=== PATIENT | male | born 1965 | race Caucasian/White ===

== ENCOUNTER 2020-06-19 19:31 | Inpatient (IN) | payer OTHER, SELFPAY ==
--- NOTE | ~2020-06-19 | CT_ITS ---
EXAMINATION: CT ABDOMEN AND PELVIS WITH CONTRAST CLINICAL INFORMATION: Severe sepsis. Paraplegia. Hematuria. COMPARISON: None TECHNIQUE: Multidetector volumetric images were obtained from the superior aspect of the liver through the pubic symphysis following administration 85 mL of Omnipaque 350 intravenous contrast. Sagittal and coronal reformatted images were obtained on the technologist's workstation. Oral contrast: No This CT examination was performed using dose optimization techniques as appropriate, variously including the following: *Automated exposure control *Adjustment of mA and/or kV according to patient size (this includes techniques or standardized protocols for targeted exams where dose is matched to indication/reason for exam; i.e. extremities or head) *Use of iterative reconstruction technique DLP: 1823 mGy-cm FINDINGS: LUNG BASES: Peripheral left basilar opacity likely represents atelectasis versus pleural thickening. LIVER, GALLBLADDER, AND BILIARY TREE: The liver is normal in size, shape, and attenuation. No focal hepatic lesion or biliary ductal dilatation is present. The gallbladder is unremarkable with no evidence of radiopaque gallstones, gallbladder wall thickening, or obvious pericholecystic inflammatory changes. PANCREAS: Unremarkable. SPLEEN: The spleen is enlarged measuring 16 cm AP dimension. No focal splenic lesion. ADRENAL GLANDS: Unremarkable. KIDNEYS AND URETERS: The kidneys are normal in size, shape, and attenuation. Left upper pole cortical simple cyst measuring 0.9 cm. No follow-up imaging recommended. There is a right lower pole 0.5 cm calculus which is 9.5 cm from the posterior axillary line. There is mild bilateral hydroureteronephrosis. No left ureteral calculi. There is a distal right ureteral calculus measuring 0.3 cm, approximately 1 cm from the ureterovesicular junction. BLADDER: The bladder is significantly thick-walled with irregular appearance diffusely. There is surrounding fluid and inflammation. The fluid extends along the paracolic gutters, measuring simple fluid attenuation. GASTROINTESTINAL TRACT: The stomach is unremarkable. Normal caliber small bowel. No obstruction. No definite colonic wall thickening. No free air. ABDOMINAL WALL: No significant hernia is appreciated. LYMPH NODES: Normal. VASCULAR: Normal caliber aorta with mild atherosclerotic calcification. PELVIC VISCERA: Enlarged prostate measuring 5.2 cm transverse. OSSEOUS STRUCTURES: No acute or suspicious osseous abnormality. Degenerative changes are seen throughout the spine. Moderate degenerative changes in both hips. CT/CT abdomen pelvis w con IMPRESSION: Significant abnormality of the bladder. Diffuse irregular wall thickening with prominent surrounding inflammatory changes and fluid. This is concerning for infection. Mild bilateral hydroureteronephrosis is likely associated with the bladder pathology. There is a 0.3 cm distal right ureteral calculus present. There is also a nonobstructing right lower pole 0.5 cm calculus. Mild splenomegaly.
--- NOTE | ~2020-06-19 | XR_ITS ---
EXAMINATION: XR CHEST CLINICAL INFORMATION: Sepsis. COMPARISON: None TECHNIQUE: Frontal portable view of the chest was obtained. 10:37 PM FINDINGS: No significant abnormality is noted involving the heart, lungs, mediastinum, bony thorax or soft tissues. Orthopedic plate and screw at lower cervical spine. XR/XR chest 1V IMPRESSION: Unremarkable examination.
[2020-06-19 19:38] VITALS: BP 102/60; BP 145/95; PULSE 104; PULSE 120; RESP 22; TEMP 38.2; O2SAT 100; O2SAT 96; BMI 22.9
--- NOTE | 2020-06-19 19:46 | ED_ITS ---
HPI - General Adult General Chief complaint: General Medical Stated complaint: HEMATURIA,?UTI Time Seen by Provider: 06/19/20 19:46 Source: patient Mode of arrival: EMS Limitations: no limitations History of Present Illness HPI narrative: Patient paraplegic after C7 injury for last 20 years self- catheterize with history of ESBL E coli bacteremia in 2014 was doing fine until yesterday today since noontime been shivering noticed to have temperature of 100.8 degrees on arrival. No nausea no vomiting no cough otherwise patient in baseline health. Has some blood in the urine today. Patient has a nonhealing wound on right lateral aspect of the thigh which per visiting nurse stable not getting worse patient does not feel much below the nipple line. Related Data Home Medications Medication Instructions Recorded Confirmed baclofen 10 mg PO BID 06/19/20 06/19/20 bisacodyl 10 mg PO MOWEFR 06/19/20 06/19/20 docusate sodium [Colace] 100 mg PO BID 06/19/20 06/19/20 multivitamin with minerals 1 tab PO DAILY 06/19/20 06/19/20 sennosides [senna] 17.2 mg PO BID PRN 06/19/20 06/19/20 simvastatin 20 mg PO DAILY 06/19/20 06/19/20 Allergies Allergy/AdvReac Type Severity Reaction Status Date / Time No Known Allergies Allergy Unverified 10/26/19 19:31 [No Known Allergies*] Review of Systems Review of Systems: Constitutional : No Weight loss, + Fever, + Chills ENT/Mouth : No sore throat, No Rhinorrhea Eyes: No Eye Pain, No Swelling Cardiovascular : No Chest Pain, no palpitations Respiratory : No Cough, No Sputum, no shortness of breath Gastrointestinal : no Nausea, No Vomiting, No Diarrhea, No abdominal Pain, no black stools Genitourinary : No Dysuria, No Urinary Frequency Musculoskeletal : No joint pain, No Myalgias, No Joint Swelling Skin : No Skin Lesions, No rash Neuro : No Weakness, No Numbness, No Dizziness, No Headache Psych : No Anxiety/Panic, No Depression Heme/Lymph: No Bruising, No Lymphadenopathy Endocrine : No Polyuria, No Polydipsia All other systems reviewed and are negative PMFSH Past Medical History Medical History C7 spinal cord injury Paralysis Paraplegia Urinary retention Social History Social History Smoking Status: Former smoker Smoked in Last 30 Days: No Advance Directives: No Advance Directives Information Provided: Yes Physical Exam Vital Signs: Vital Signs: Last Vital Signs Temp 100.8 F H 06/19/20 19:38 Pulse 92 06/19/20 22:00 Resp 18 06/19/20 22:00 BP 145/90 H 06/19/20 22:00 Pulse Ox 100 06/19/20 22:00 Body Mass Index 22.9 Appearance: Alert. Oriented X3. No acute distress. Chills++ Eyes: PERRLA, No Nystagmus ENT: Pharynx normal. Oral Mucosa moist Neck: Normal inspection. Neck supple. CVS: Normal heart rate and rhythm. Pulses normal. Respiratory: No respiratory distress. Equal air entry bilateral, no wheezing/rales/rhonchi Abdomen: Soft and nontender. Bowel sounds are present, no mass palpable, no CVA tenderness, blood at the meatus of penis, sherrell hematuria Skin: Skin warm and dry. Normal skin color. Normal skin turgor. Extremities: No lower extremity edema. No calf tenderness Neuro: Oriented X 3. Paraplegic. No sensory deficit.No cerebellar signs , cranial nerves II-XII intact Medical Decision Making MDM Narrative Medical decision making narrative: Patient with history of paraplegia history of ESBL E coli infection the past self-catheterize and use condom catheter in the nighttime came with fever and chills leukocytosis tachycardia meeting the crite genevieve for sepsis. Patient was given IV fluids 30 mL/kilogram body weight along with antibiotic ertapenem and vancomycin although urine is negative for WBC but that is the source of infection likely. Patient has wound at right greater trochanteric area wound does not seem to be very deep . Patient responded to IV fluids vitals improved will admit patient CT scan showed bilateral mild hydronephrosis with small stone on the right ureter with thickening and inflammation of the bladder wall. Lab Data Lab results reviewed: Yes I reviewed the patient's lab results. Result diagrams: 06/19/20 19:56 06/19/20 19:56 Labs: Lab Results 06/19/20 06/19/20 06/19/20 Range/Units 19:56 19:56 19:56 WBC 28.5 H (4.8-10.8) X10*3/uL RBC 5.53 (4.60-5.80) X10*6/uL Hgb 14.3 (14.0-18.0) g/dl Hct 45.7 (42-52) % MCV 82.6 (80-98) fL MCH 25.9 L (27.0-33.0) pg MCHC 31.3 (31.0-36.0) g/dl RDW 15.6 (11.0-16.0) % Plt Count 505 H (160-400) X10*3/uL MPV 8.9 L (9.4-12.4) fL Immature Gran % (Auto) 0.8 H (0.0-0.4) % Neut % (Auto) 88.3 H (45-73) % Lymph % (Auto) 3.9 L (20-40) % [place] % (Auto) 6.0 (2-11) % Eos % (Auto) 0.7 (0-4) % Baso % (Auto) 0.3 (0-2) % Lymph # (Auto) 1.1 L (1.2-4.9) X10*3/uL [place] # (Auto) 1.7 H (0.1-1.2) X10*3/uL Eos # (Auto) 0.2 (0.0-0.4) X10*3/uL Baso # (Auto) 0.1 (0.0-0.2) X10*3/uL Abs Immat Gran (auto) 0.23 H (0.00-0.03) X10*3/uL Absolute Neuts (auto) 25.1 H (2.0-8.3) X10*3/uL Absolute Nucleated RBC 0.000 (0.0-0.012) X10*3/uL Nucleated RBC % (auto) 0.0 (0.0-0.2) /100WBC Smear Tech's Comments VERIFIED PT 13.6 H (10.8-13.0) SEC INR 1.1 (0.9-1.1) Sodium 142 (135-145) mmol/L Potassium 3.9 (3.3-5.1) mmol/L Chloride 106 (96-108) mmol/L Carbon Dioxide 25 (22-29) mmol/L Anion Gap 15 (12-20) BUN 11 (9-16) mg/dL Creatinine 0.81 (0.5-1.4) mg/dL Estim Creat Clear Calc 105.7 Estimated GFR > 60 Random Glucose 220 H (60-115) mg/dL Lactic Acid (0.5-2.0) mmol/L Lactic Acid Fup @ 2Hr (0.5-2.0) mmol/L Lactic Acid Fup @ 4Hr (0.5-2.0) mmol/L Calcium 8.8 (8.4-10.2) mg/dL Total Bilirubin 0.3 (0.0-1.0) mg/dL Direct Bilirubin 0.2 (0.0-0.5) mg/dL AST 12 (5-37) U/L ALT 11 (0-40) U/L Alkaline Phosphatase 73 (39-117) U/L Total Protein 8.1 H (6.5-8.0) g/dL Albumin 3.7 (3.5-5.0) g/dL Urine Color Urine Appearance Urine pH (5.0-8.0) Ur Specific [place] (1.005-1.025) Urine Protein (NEG-TRACE) MG/DL Urine Glucose (UA) (NEG) MG/DL Urine Ketones (NEG) MG/DL Urine Blood (NEG) Urine Nitrite (NEG) Ur Leukocyte Esterase (NEG) Urine RBC (0) /HPF Urine WBC (0-4) /HPF Ur Squamous Epith Cells /LPF Urine Bacteria /LPF COVID-19 (BESSY) (Negative) COVID-19 Clin Com 06/19/20 06/19/20 06/19/20 Range/Units 19:56 21:48 22:31 WBC (4.8-10.8) X10*3/uL RBC (4.60-5.80) X10*6/uL Hgb (14.0-18.0) g/dl Hct (42-52) % MCV (80-98) fL MCH (27.0-33.0) pg MCHC (31.0-36.0) g/dl RDW (11.0-16.0) % Plt Count (160-400) X10*3/uL MPV (9.4-12.4) fL Immature Gran % (Auto) (0.0-0.4) % Neut % (Auto) (45-73) % Lymph % (Auto) (20-40) % [place] % (Auto) (2-11) % Eos % (Auto) (0-4) % Baso % (Auto) (0-2) % Lymph # (Auto) (1.2-4.9) X10*3/uL [place] # (Auto) (0.1-1.2) X10*3/uL Eos # (Auto) (0.0-0.4) X10*3/uL Baso # (Auto) (0.0-0.2) X10*3/uL Abs Immat Gran (auto) (0.00-0.03) X10*3/uL Absolute Neuts (auto) (2.0-8.3) X10*3/uL Absolute Nucleated RBC (0.0-0.012) X10*3/uL Nucleated RBC % (auto) (0.0-0.2) /100WBC Smear Tech's Comments PT (10.8-13.0) SEC INR (0.9-1.1) Sodium (135-145) mmol/L Potassium (3.3-5.1) mmol/L Chloride (96-108) mmol/L Carbon Dioxide (22-29) mmol/L Anion Gap (12-20) BUN (9-16) mg/dL Creatinine (0.5-1.4) mg/dL Estim Creat Clear Calc Estimated GFR Random Glucose (60-115) mg/dL Lactic Acid 3.0 H* (0.5-2.0) mmol/L Lactic Acid Fup @ 2Hr 2.3 H* (0.5-2.0) mmol/L Lactic Acid Fup @ 4Hr (0.5-2.0) mmol/L Calcium (8.4-10.2) mg/dL Total Bilirubin (0.0-1.0) mg/dL Direct Bilirubin (0.0-0.5) mg/dL AST (5-37) U/L ALT (0-40) U/L Alkaline Phosphatase (39-117) U/L Total Protein (6.5-8.0) g/dL Albumin (3.5-5.0) g/dL Urine Color RED Urine Appearance TURBID Urine pH 7.0 (5.0-8.0) Ur Specific [place] 1.025 (1.005-1.025) Urine Protein 3+ H (NEG-TRACE) MG/DL Urine Glucose (UA) 100 H (NEG) MG/DL Urine Ketones NEG (NEG) MG/DL Urine Blood 3+ H (NEG) Urine Nitrite NEG (NEG) Ur Leukocyte Esterase NEG (NEG) Urine RBC TNTC H (0) /HPF Urine WBC 0 (0-4) /HPF Ur Squamous Epith Cells NONE /LPF Urine Bacteria 1+ /LPF COVID-19 (BESSY) (Negative) COVID-19 Clin Com 06/19/20 06/20/20 Range/Units 22:31 00:57 WBC (4.8-10.8) X10*3/uL RBC (4.60-5.80) X10*6/uL Hgb (14.0-18.0) g/dl Hct (42-52) % MCV (80-98) fL MCH (27.0-33.0) pg MCHC (31.0-36.0) g/dl RDW (11.0-16.0) % Plt Count (160-400) X10*3/uL MPV (9.4-12.4) fL Immature Gran % (Auto) (0.0-0.4) % Neut % (Auto) (45-73) % Lymph % (Auto) (20-40) % [place] % (Auto) (2-11) % Eos % (Auto) (0-4) % Baso % (Auto) (0-2) % Lymph # (Auto) (1.2-4.9) X10*3/uL [place] # (Auto) (0.1-1.2) X10*3/uL Eos # (Auto) (0.0-0.4) X10*3/uL Baso # (Auto) (0.0-0.2) X10*3/uL Abs Immat Gran (auto) (0.00-0.03) X10*3/uL Absolute Neuts (auto) (2.0-8.3) X10*3/uL Absolute Nucleated RBC (0.0-0.012) X10*3/uL Nucleated RBC % (auto) (0.0-0.2) /100WBC Smear Tech's Comments PT (10.8-13.0) SEC INR (0.9-1.1) Sodium (135-145) mmol/L Potassium (3.3-5.1) mmol/L Chloride (96-108) mmol/L Carbon Dioxide (22-29) mmol/L Anion Gap (12-20) BUN (9-16) mg/dL Creatinine (0.5-1.4) mg/dL Estim Creat Clear Calc Estimated GFR Random Glucose (60-115) mg/dL Lactic Acid (0.5-2.0) mmol/L Lactic Acid Fup @ 2Hr (0.5-2.0) mmol/L Lactic Acid Fup @ 4Hr 2.8 H* (0.5-2.0) mmol/L Calcium (8.4-10.2) mg/dL Total Bilirubin (0.0-1.0) mg/dL Direct Bilirubin (0.0-0.5) mg/dL AST (5-37) U/L ALT (0-40) U/L Alkaline Phosphatase (39-117) U/L Total Protein (6.5-8.0) g/dL Albumin (3.5-5.0) g/dL Urine Color Urine Appearance Urine pH (5.0-8.0) Ur Specific [place] (1.005-1.025) Urine Protein (NEG-TRACE) MG/DL Urine Glucose (UA) (NEG) MG/DL Urine Ketones (NEG) MG/DL Urine Blood (NEG) Urine Nitrite (NEG) Ur Leukocyte Esterase (NEG) Urine RBC (0) /HPF Urine WBC (0-4) /HPF Ur Squamous Epith Cells /LPF Urine Bacteria /LPF COVID-19 (BESSY) Negative (Negative) COVID-19 Clin Com See Note Discharge Plan Discharge Clinical Impression: Sepsis Qualifiers: Sepsis type: sepsis due to unspecified organism Sepsis acute organ dysfunction status: without acute organ dysfunction Qualified Code(s): A41.9 - Sepsis, unspecified organism Hematuria Qualifiers: Hematuria type: gross Qualified Code(s): R31.0 - Gross hematuria Patient Disposition: Admitted As Inpatient
[2020-06-19 20:06] LABS: Basophils Absolute Auto 0.1 X10*3/uL (0.0-0.2); Basophils Percent Auto 0.3 % (0-2); Eosinophils Absolute Auto 0.2 X10*3/uL (0.0-0.4); Eosinophils Percent Auto 0.7 % (0-4); Hematocrit 45.7 % (42-52); Hemoglobin 14.3 g/dl (14.0-18.0); Imm Gran Abs Auto 0.23 X10*3/uL (0.00-0.03); Imm Gran Pct Auto 0.8 % (0.0-0.4); Lymphocytes Absolute Auto 1.1 X10*3/uL (1.2-4.9); Lymphocytes Percent Auto 3.9 % (20-40); MANUAL DIFF FLAG SCAN; Mean Corpuscular HGB Conc 31.3 g/dl (31.0-36.0); Mean Corpuscular Hemoglobin 25.9 pg (27.0-33.0); Mean Corpuscular Volume 82.6 fL (80-98); Mean Platelet Volume 8.9 fL (9.4-12.4); Monocytes Absolute Auto 1.7 X10*3/uL (0.1-1.2); Neutrophils Absolute Auto 25.1 X10*3/uL (2.0-8.3); Neutrophils Percent Auto 88.3 % (45-73); Platelet Count 505 X10*3/uL (160-400); Red Blood Count 5.53 X10*6/uL (4.60-5.80); Red Cell Distribution Width 15.6 % (11.0-16.0); SCAN SMEAR FLAG 1; White Blood Count 28.5 X10*3/uL (4.8-10.8)
[2020-06-19 20:15] LABS: INTERNATIONAL NORM RATIO 1.1 (0.9-1.1); Prothrombin Time 13.6 SEC (10.8-13.0)
[2020-06-19] MEDS: Acetaminophen 325 MG TABLET 650 MG PO (20:19)
[2020-06-19] MEDS: 0.9 % Sodium Chloride 2,500 ML 833.33 ML IV (20:20)
[2020-06-19] MEDS: Ertapenem Sodium 1 GM in 0.9 % Sodium Chloride 50 ML IV (20:21)
[2020-06-19 20:29] LABS: Alanine Aminotransferase 11 U/L (0-40); Albumin Level 3.7 g/dL (3.5-5.0); Alkaline Phosphatase 73 U/L (39-117); Anion Gap 15 (12-20); Aspartate Amino Transferase 12 U/L (5-37); Bilirubin Direct 0.2 mg/dL (0.0-0.5); Bilirubin Total 0.3 mg/dL (0.0-1.0); Blood Urea Nitrogen 11 mg/dL (9-16); Calcium 8.8 mg/dL (8.4-10.2); Carbon Dioxide 25 mmol/L (22-29); Chloride 106 mmol/L (96-108); Creatinine Clr Calc Pharmacy 105.7; Estimated Glomerular Filt Rate > 60; Glucose Random 220 mg/dL (60-115); Potassium 3.9 mmol/L (3.3-5.1); Sodium 142 mmol/L (135-145); Total Protein 8.1 g/dL (6.5-8.0)
[2020-06-19 20:32] LABS: SLIDE REVIEW VERIFIED
[2020-06-19 20:55] VITALS: BP 140/68; PULSE 82; RESP 18; O2SAT 100
[2020-06-19 21:12] VITALS: BP 99/55
[2020-06-19 22:00] VITALS: BP 145/90; PULSE 92; RESP 18; O2SAT 100
[2020-06-19 22:02] LABS: Reflex Lactate? Lactic Acid Added
[2020-06-19 22:11] LABS: Glucose Urine UA 100 MG/DL (NEG); Leukocyte Esterase Urine NEG (NEG); Nitrite Urine NEG (NEG); Specific Gravity - Urine 1.025 (1.005-1.025); Urine Blood 3+ (NEG); Urine Ketones NEG (NEG); Urine Protein 3+ MG/DL (NEG-TRACE)
[2020-06-19 22:14] LABS: Appearance Urine TURBID; Color Urine RED
[2020-06-19 22:15] LABS: Bacteria Urine 1+ /LPF; RBC Urine TNTC /HPF (0); WBC Urine 0 /HPF (0-4)
--- NOTE | 2020-06-19 22:36 | PC.NURSE ---
Hx of recent d/c from [facility]. Pt has extensive medical history of utilizing [facility]. pt has wound care at home for chronic right ishial wound, drainage purulent no bone visualized and redressed. left ishial wound and buttock wound about size of quarter appeared to be well healing. unknown when dressings were last changed. sister era [phone] and sandeep [phone]
[2020-06-19] MEDS: vancomycin HCL 1,000 MG in 0.9 % Sodium Chloride 250 ML 270 MG IV (22:52)
[2020-06-19 22:59] LABS: COVID-19 Test Negative (Negative)
[2020-06-19 23:01] LABS: ~Lactic Acid-LAB USE ONLY 2.3 mmol/L (0.5-2.0)
[2020-06-20] VITALS (7 sets, daily range): BP systolic 90–156; BP diastolic 40–76; PULSE 66–95; RESP 16–18; TEMP 36.1–37.2; O2SAT 97–100; BMI 22.9
[2020-06-20] MEDS: iohexoL 350 MG/ML 100 ML INFUS..BTL 85 ML IV (00:10)
[2020-06-20 00:39] LABS: Reflex Lactate? 2 Y
[2020-06-20 01:23] LABS: ~Lactic Acid-LAB USE ONLY 2.8 mmol/L (0.5-2.0)
--- NOTE | 2020-06-20 01:55 | PM.IMHP ---
History of Present Illness Date of Service: 06/20/20 Chief Complaint: Hematuria/ Chills 55-year-old male with a past medical history of C7 injury, paraplegic, mostly bed-bound, has history of bilateral ischial decubitus ulcers; uses condom catheter at night; history of ESBL infection; has been in the [facility] for about 6 months and recently discharged home about a month ago; has VNA services; presented to the hospital with a chief complaint of hematuria/chills and rigors. Most of the history provided by the patient, patient's sister Helena, ER staff. Reportedly this afternoon after 3:00 a.m. patient noted to have increased urinary frequency and subsequently had pinkish urine notified his sister Helena and subsequently brought to the ER for further evaluation. Patient denies any chest pain palpitations. As per the patient's sister Helena-> patient has chronic decubitus ulcers; some discharge on the right decubitus ulcer; follows with [facility]; patient was deemed nonsurgical for his ulcers at the [facility]. ER course: Per ER team patient noted to have significantly leukocytes, blood cultures were sent, urine consistent with UTI-given imipenem; also given vancomycin the patient noted to have Will and right ischial decubitus ulcer. Admitted to the hospital for further management [facility] Medical History (Updated 06/30/20 @ 00:01 by Rodolfo Hollingsworth) C7 spinal cord injury Decubitus ulcer of buttock, stage 2 Paralysis Paraplegia Urinary retention Social History Household Members: None Housing: Apartment Do you presently have visiting nurse or other home services: Yes Smoking Status: Former smoker Substance Use Type: Marijuana service: Yes Current occupational status: retired and disabled Meds Allergies Allergy/AdvReac Type Severity Reaction Status Date / Time No Known Allergies Allergy Unverified 10/26/19 19:31 [No Known Allergies*] Active Medications: Current Medications Generic Name Dose Route Start Last Admin Trade Name Freq PRN Reason Stop Dose Admin Acetaminophen 650 mg 06/20/20 01:49 Acetaminophen 325 Mg Tablet PO Q6H PRN Pain, Mild (Pain Scale 1-3) Baclofen 10 mg 06/20/20 09:00 Baclofen 10 Mg Tablet PO BID [facility] Docusate Sodium 100 mg 06/20/20 09:00 Docusate Sodium 100 Mg Capsule PO BID [facility] Heparin Sodium (Porcine) 5,000 unit 06/20/20 02:00 Heparin Sodium,Porcine 5,000 Unit/Ml Vial SUBCUT Q8H [facility] Ertapenem 1 gm/ Sodium 50 mls @ 100 mls/hr 06/20/20 20:00 Chloride IV 06/20/20 20:29 ONCE ONE Vancomycin HCl 1,000 mg/ 270 mls @ 270 mls/hr 06/20/20 02:00 Sodium Chloride IV Q12H [facility] Sodium Chloride 1,000 mls @ 100 mls/hr 06/20/20 02:00 Ns IVCONT .Q10H [facility] Multivitamins/Minerals 1 tab 06/20/20 09:00 Multivitamin With Minerals Tablet PO DAILY [facility] Non-Formulary Medication 20 mg 06/20/20 09:00 Simvastatin PO DAILY [facility] Pharmacy Consult 1 each 06/19/20 20:23 Consult Rx Perform Med Rec MISCELLANE ONCE PRN Consult order Pharmacy Consult 1 each 06/20/20 01:47 Consult Rx Vancomycin Dosing MISCELLANE DAILY PRN Consult order Senna 17.2 mg 06/20/20 01:49 Sennosides 8.6 Mg Tablet PO BEDTIME PRN Constipation Senna 17.2 mg 06/20/20 01:51 Sennosides 8.6 Mg Tablet PO BID PRN Constipation Sodium Chloride 3 ml 06/20/20 08:00 0.9 % Sodium Chloride Flush 3 Ml [facility] Medications Medication Instructions Recorded Confirmed Last Taken Type baclofen 10 mg PO BID 06/19/20 06/19/20 06/19/20 History bisacodyl 10 mg PO MOWEFR 06/19/20 06/19/20 Unknown History docusate sodium [Colace] 100 mg PO BID 06/19/20 06/19/20 Unknown History multivitamin with minerals 1 tab PO DAILY 06/19/20 06/19/20 Unknown History sennosides [senna] 17.2 mg PO BID PRN 06/19/20 06/19/20 Unknown History simvastatin 20 mg PO DAILY 06/19/20 06/19/20 06/19/20 History Physical Exam Vital Signs and Narrative: Vital Signs: Last Vital Signs Temp 100.8 F H 06/19/20 19:38 Pulse 92 06/19/20 22:00 Resp 18 05/12/21 22:00 BP 145/90 H 06/19/20 22:00 Pulse Ox 100 06/19/20 22:00 Body Mass Index 22.9 Gen: Appears be in no acute distress HEENT: NCAT, Moist mucosa. Pulmonary: Vesicular breath sounds, fair air entry CVS: Normal S1-S2 Abdomen: BS+, Soft, Nontender Extremities: Warm well perfused; noted bilateral ischial decubitus adofl-ylmva-mheal has mild discharge. Left-sided appears chronic and healing. Neuro: Alert and awake. Results Labs CBC and Chem 7: 06/21/20 09:40 06/21/20 09:40 Labs: Laboratory Results - last 24 hr 06/19/20 06/19/20 06/19/20 19:56 19:56 19:56 MCV 82.6 MCH 25.9 L MCHC 31.3 RDW 15.6 Plt Count 505 H MPV 8.9 L Immature Gran % (Auto) 0.8 H Neut % (Auto) 88.3 H Lymph % (Auto) 3.9 L [place] % (Auto) 6.0 Eos % (Auto) 0.7 Baso % (Auto) 0.3 Lymph # (Auto) 1.1 L [place] # (Auto) 1.7 H Eos # (Auto) 0.2 Baso # (Auto) 0.1 Abs Immat Gran (auto) 0.23 H Absolute Neuts (auto) 25.1 H Absolute Nucleated RBC 0.000 Nucleated RBC % (auto) 0.0 Smear Tech's Comments VERIFIED PT 13.6 H INR 1.1 Anion Gap 15 Estim Creat Clear Calc 105.7 Estimated GFR > 60 Random Glucose 220 H Lactic Acid Lactic Acid Fup @ 2Hr Lactic Acid Fup @ 4Hr Calcium 8.8 Total Bilirubin 0.3 Direct Bilirubin 0.2 AST 12 ALT 11 Alkaline Phosphatase 73 Total Protein 8.1 H Albumin 3.7 Urine Color Urine Appearance Urine pH Ur Specific [place] Urine Protein Urine Glucose (UA) Urine Ketones Urine Blood Urine Nitrite Ur Leukocyte Esterase Urine RBC Urine WBC Ur Squamous Epith Cells Urine Bacteria COVID-19 (BESSY) COVID-19 Clin Com 06/19/20 06/19/20 06/19/20 19:56 21:48 22:31 MCV MCH MCHC RDW Plt Count MPV Immature Gran % (Auto) Neut % (Auto) Lymph % (Auto) [place] % (Auto) Eos % (Auto) Baso % (Auto) Lymph # (Auto) [place] # (Auto) Eos # (Auto) Baso # (Auto) Abs Immat Gran (auto) Absolute Neuts (auto) Absolute Nucleated RBC Nucleated RBC % (auto) Smear Tech's Comments PT INR Anion Gap Estim Creat Clear Calc Estimated GFR Random Glucose Lactic Acid 3.0 H* Lactic Acid Fup @ 2Hr 2.3 H* Lactic Acid Fup @ 4Hr Calcium Total Bilirubin Direct Bilirubin AST ALT Alkaline Phosphatase Total Protein Albumin Urine Color RED Urine Appearance TURBID Urine pH 7.0 Ur Specific [place] 1.025 Urine Protein 3+ H Urine Glucose (UA) 100 H Urine Ketones NEG Urine Blood 3+ H Urine Nitrite NEG Ur Leukocyte Esterase NEG Urine RBC TNTC H Urine WBC 0 Ur Squamous Epith Cells NONE Urine Bacteria 1+ COVID-19 (BESSY) COVID-[employer] 06/19/20 06/20/20 22:31 00:57 MCV MCH MCHC RDW Plt Count MPV Immature Gran % (Auto) Neut % (Auto) Lymph % (Auto) [place] % (Auto) Eos % (Auto) Baso % (Auto) Lymph # (Auto) [place] # (Auto) Eos # (Auto) Baso # (Auto) Abs Immat Gran (auto) Absolute Neuts (auto) Absolute Nucleated RBC Nucleated RBC % (auto) Smear Tech's Comments PT INR Anion Gap Estim Creat Clear Calc Estimated GFR Random Glucose Lactic Acid Lactic Acid Fup @ 2Hr Lactic Acid Fup @ 4Hr 2.8 H* Calcium Total Bilirubin Direct Bilirubin AST ALT Alkaline Phosphatase Total Protein Albumin Urine Color Urine Appearance Urine pH Ur Specific [place] Urine Protein Urine Glucose (UA) Urine Ketones Urine Blood Urine Nitrite Ur Leukocyte Esterase Urine RBC Urine WBC Ur Squamous Epith Cells Urine Bacteria COVID-19 (BESSY) Negative COVID-19 Clin Com See Note Imaging Radiologist's Impressions: Impressions Chest X-Ray 06/19/20 22:30 IMPRESSION: Unremarkable examination. Abdomen/Pelvis CT 06/20/20 00:01 IMPRESSION: Significant abnormality of the bladder. Diffuse irregular wall thickening with prominent surrounding inflammatory changes and fluid. This is concerning for infection. Mild bilateral hydroureteronephrosis is likely associated with the bladder pathology. There is a 0.3 cm distal right ureteral calculus present. There is also a nonobstructing right lower pole 0.5 cm calculus. Mild splenomegaly. Assessment and Plan (1) Hematuria: Qualifiers: Hematuria type: gross Qualified Code(s): R31.0 - Gross hematuria Status: Resolved 55-year-old male with a past medical history of paraplegia, history of ESBL infection, decubitus ulcers presented to the hospital with a chief complaint of urinary frequency/hematuria. UTI: Continue ertapenem. Id consult. Follow-up cultures Hematuria/hydroureteronephrosis/renal calculi: Urology consulted. Serial H&H. Decubitus ulcer: Chronic. Patient on IV vancomycin. Id consult as mentioned. Wound care. For all other chronic conditions, home medications continued DVT prophylaxis: Subcu heparin Code status: Full code
[2020-06-20] MEDS: 0.9 % Sodium Chloride 1,000 ML 100 ML IVCONT ×3 (02:00→23:05)
[2020-06-20 06:41] LABS: MANUAL DIFF FLAG NO
[2020-06-20 06:48] LABS: Basophils Absolute Auto 0.1 X10*3/uL (0.0-0.2); Basophils Percent Auto 0.3 % (0-2); Eosinophils Absolute Auto 0.2 X10*3/uL (0.0-0.4); Eosinophils Percent Auto 0.8 % (0-4); Hematocrit 39.8 % (42-52); Hemoglobin 12.4 g/dl (14.0-18.0); Imm Gran Abs Auto 0.16 X10*3/uL (0.00-0.03); Imm Gran Pct Auto 0.9 % (0.0-0.4); Lymphocytes Absolute Auto 1.5 X10*3/uL (1.2-4.9); Lymphocytes Percent Auto 8.3 % (20-40); Mean Corpuscular HGB Conc 31.2 g/dl (31.0-36.0); Mean Corpuscular Hemoglobin 25.8 pg (27.0-33.0); Mean Corpuscular Volume 82.7 fL (80-98); Mean Platelet Volume 9.2 fL (9.4-12.4); Monocytes Absolute Auto 1.3 X10*3/uL (0.1-1.2); Monocytes Percent Auto 7.4 % (2-11); Neutrophils Absolute Auto 14.9 X10*3/uL (2.0-8.3); Neutrophils Percent Auto 82.3 % (45-73); Platelet Count 328 X10*3/uL (160-400); Red Blood Count 4.81 X10*6/uL (4.60-5.80); Red Cell Distribution Width 15.8 % (11.0-16.0); White Blood Count 18.1 X10*3/uL (4.8-10.8)
[2020-06-20 07:18] LABS: Anion Gap 10 (12-20); Blood Urea Nitrogen 8 mg/dL (9-16); Carbon Dioxide 27 mmol/L (22-29); Chloride 109 mmol/L (96-108); Creatinine Clr Calc Pharmacy 120.6; Estimated Glomerular Filt Rate > 60; Glucose Random 137 mg/dL (60-115); Potassium 4.4 mmol/L (3.3-5.1); Sodium 142 mmol/L (135-145)
[2020-06-20] MEDS: Heparin Sodium,Porcine 5,000 UNIT/ML VIAL 5000 UNIT SUBCUT ×2 (08:40→18:46)
[2020-06-20] MEDS: Atorvastatin Calcium 10 MG TABLET PO (08:40)
[2020-06-20] MEDS: Baclofen 10 MG TABLET PO ×2 (08:40→20:30)
[2020-06-20] MEDS: 0.9 % Sodium Chloride Flush 3 ML SYRINGE IVFLUSH ×2 (08:40→20:30)
--- NOTE | 2020-06-20 09:53 | P.CDIC_ITS ---
CDI Concurrent Query Service Date: 06/20/20 Documentation Clarification: Please clarify if you are treating a proba ble/suspected/likely or confirmed: Sepsis due to UTI Urinary tract infection Please specify if known Severe Sepsis POA, source Urinary vs others Provider Response: Other Other Diagnosis: Severe Sepsis, POA -- Urinary vs alternative source PLEASE DO NOT DELETE/MODIFY EXISTING CONTENT Additional information is needed in order to code to the highest accuracy and appropriate Severity of Illness (SOI). Please clarify the information noted below in your progress notes and discharge summary. Risk Factors/Clinical Indicators/Treatments ED: fever, chills, tachycardia meeting criteria for sepsis. Clinical impression: Sepsis/Gross hematuria. Temp 100.8 WBC 28.5 LA 3.0 IV fluids IV Vancomycin, ertapenem, urine neg for WBC is the source of infection likely. Dx: UTI, frequency and hematuria CDS: Jazmine Umaña CCS, CDIS Contact Number: [phone] Please Review the information above and exercise your independent professional judgment in responding to the query. If you concur, pleas document in the PROGRESS NOTES and DISCHARGE SUMMARY. If you do not agree with the query, please document in the query above. THIS QUERY IS PART OF THE PERMANENT MEDICAL RECORD
--- NOTE | 2020-06-20 10:19 | MHC.CM.PN ---
PATIENT LIVES ALONE. HE IS ACTIVE WITH [facility]. (DAILY RN AND HOME HEALTH AID VISITS) REFERRAL PLACED TO ALLOW AGENCY TO FOLLOW. PATIENT HAS ALL NECESSARY DME IN THE HOME, INCLUDING TUB BENCH, LIFT VAN,WHEEL CHAIR, REMIGIO LIFT, AND RAMP. HIS SISTER, MICHAELA IS HIS HCP AGENT, AND A COPY IS REQUESTED. PATIENT WAS DRIVING UP UNTIL HIS STAY IN [place], [place] AND IS HOPING TO BE ABLE TO AGAIN. CASE MANAGEMENT FOLLOWING FOR ANY DISCHARGE NEEDS.
--- NOTE | 2020-06-20 10:48 | HO.PM.IMPN ---
Subjective Subjective Date of Service: 06/20/20 Interval History: seen and examined reports feeling much better than yesterday reports he has been self catheterizing himself for a long time and hasnt had issues in the past yesterday, he had bleeding and clots he reports that his R buttock wound was being treated for many months and per his VNA, it is stable ROS General - no fevers or chills Cardiovascular - no chest pain Respiratory - no shortness of breath or cough Abdominal- no abdominal pain, nausea, vomiting, diarrhea Physical Exam Vital Signs: Vital Signs: Last Vital Signs Temp 98.5 F 06/20/20 08:00 Pulse 90 06/20/20 08:00 Resp 18 06/20/20 08:00 BP 94/64 06/20/20 08:00 Pulse Ox 100 06/20/20 08:00 Body Mass Index 22.9 Const: Other: General - no acute distress, appears comfortable Cardiovascular - regular rate and rhythm, S1-S2 Lungs - normal respiratory effort, clear to auscultation bilaterally, no wheezing Abdomen - soft, nontender, no rebound or guarding Extremities - no edema bilaterally Neuro - awake and alert, no focal deficits Skin - R buttock with pressure ucler, some drinage, no foul smell appreiated Objective Data Current Medications Generic Name Dose Route Start Last Admin Trade Name Shruthi PRN Reason Stop Dose Admin Acetaminophen 650 mg 06/20/20 01:49 Acetaminophen 325 Mg Tablet PO Q6H PRN Pain, Mild (Pain Scale 1-3) Atorvastatin Calcium 10 mg 06/20/20 09:00 06/20/20 08:40 Atorvastatin Calcium 10 Mg Tablet PO 10 mg DAILY FATEMEH Administration Baclofen 10 mg 06/20/20 09:00 06/20/20 08:40 Baclofen 10 Mg Tablet PO 10 mg BID FATEMEH Administration Docusate Sodium 100 mg 06/20/20 09:00 06/20/20 08:41 Docusate Sodium 100 Mg Capsule PO Not Given BID FATEMEH Heparin Sodium (Porcine) 5,000 unit 06/20/20 02:00 06/20/20 08:40 Heparin Sodium,Porcine 5,000 Unit/Ml Vial SUBCUT 5,000 unit Q8H FATEMEH Administration Sodium Chloride 1,000 mls @ 100 mls/hr 06/20/20 02:00 06/20/20 02:00 Ns IVCONT 100 mls/hr .Q10H FATEMEH Administration Vancomycin HCl 1,000 mg/ 270 mls @ 270 mls/hr 06/20/20 11:00 Sodium Chloride IV Q12H [facility] Meropenem 1 gm/ Sodium 100 mls @ 100 mls/hr 06/20/20 20:00 Chloride IV Q8H [facility] Multivitamins/Minerals 1 tab 06/20/20 09:00 06/20/20 08:40 Multivitamin With Minerals Tablet PO 1 tab DAILY FATEMEH Administration Pharmacy Consult 1 each 06/19/20 20:23 Consult Rx Perform Med Rec MISCELLANE ONCE PRN Consult order Pharmacy Consult 1 each 06/20/20 01:47 Consult Rx Vancomycin Dosing MISCELLANE DAILY PRN Consult order Senna 17.2 mg 06/20/20 01:49 Sennosides 8.6 Mg Tablet PO BEDTIME PRN Constipation Senna 17.2 mg 06/20/20 01:51 Sennosides 8.6 Mg Tablet PO BID PRN Constipation Sodium Chloride 3 ml 06/20/20 08:00 06/20/20 08:40 0.9 % Sodium Chloride Flush 3 Ml Syringe IVFLUSH 3 ml QSHIFT [facility] Administration Labs CBC & Chem 7: 06/20/20 06:28 06/20/20 06:28 Assessment and Plan (1) Severe sepsis: Status: Acute Assessment and Plan: This is a 55 yo paraplegiec who self catherizes himself and now presents to the hospital with hematuria and sepsis. 1. Sepsis POA likely urinary source history of ESBL continue Merrem 2. UTI / Hematuria / Nephrolithiasis / Acute Blood loss antibiotics as above urology consult monitor h/h 3. R Buttock ulcer some drainage without foul smell per patient report, wound is unchanged will get surgical input to make sure no I&D needed vancomcyin for now continue baseline meds Full Code DVT pptx, mechanical due to hematuria
[2020-06-20] MEDS: vancomycin HCL 1,000 MG in 0.9 % Sodium Chloride 250 ML 270 MG IV ×2 (11:46→23:01)
--- NOTE | 2020-06-20 13:13 | PM.UROCN ---
History of Present Illness Consult details Consult date: 06/20/20 Narrative: Tomás is a male. Admitted to hospital for question of urinary tract infection. Background of spinal injury. Has been bed-bound. Uses a condom catheter at night to empty bladder. CT imaging showed small 3 mm distal right ureteric stone with mild hydronephrosis. No changes to creatinine Elevated white count CT scan also shows significant fluid stranding around bladder consistent with chronic cystitis Recommend placement of Rowley catheter. Should be left until repeat imaging can be performed showing resolution of bladder irritation. May be better managed with indwelling catheter moving forward [facility] Past Medical History Medical History (Updated 06/20/20 @ 13:15 by Russell Cunha MD) C7 spinal cord injury Paralysis Paraplegia Urinary retention Social History Social History Household Members: None Housing: Apartment Do you presently have visiting nurse or other home services: Yes Smoking Status: Former smoker Smoked in Last 30 Days: No Use of substances other than those prescribed or required for medical reasons: No Substance Use Type: Marijuana Substance Use Type Other:: edibles years ago Currently Displaying Signs/Symptoms of Drug Intoxication Withdrawal: No Have you been hit, kicked, punched, or otherwise hurt by someone within the past year? If so, by whom?: No Do you feel safe in your current relationship?: No Current Relationship Is there a partner from a previous relationship who is making you feel unsafe now?: No Advance Directives: No Advance Directives Information Provided: Yes Do you have thoughts of harming others: None Do you have a plan to hurt others: No Plan Recently lost weight without trying: Yes How much weight loss: 14-23 pounds Eating poorly because of decreased appetite: Yes Nutrition screen score: 5 Nutrition Risks: Poor intake 0-25% >4 days service: Yes Current occupational status: retired and disabled Meds Allergies Allergy/AdvReac Type Severity Reaction Status Date / Time No Known Allergies Allergy Unverified 10/26/19 19:31 [No Known Allergies*] Active Medications: Current Medications Generic Name Dose Route Start Last Admin Trade Name Freq PRN Reason Stop Dose Admin Acetaminophen 650 mg 06/20/20 01:49 Acetaminophen 325 Mg Tablet PO Q6H PRN Pain, Mild (Pain Scale 1-3) Atorvastatin Calcium 10 mg 06/20/20 09:00 06/20/20 08:40 Atorvastatin Calcium 10 Mg Tablet PO 10 mg DAILY FATEMEH Administration Baclofen 10 mg 06/20/20 09:00 06/20/20 08:40 Baclofen 10 Mg Tablet PO 10 mg BID FATEMEH Administration Docusate Sodium 100 mg 06/20/20 09:00 06/20/20 08:41 Docusate Sodium 100 Mg Capsule PO Not Given BID [facility] Heparin Sodium (Porcine) 5,000 unit 06/20/20 02:00 06/20/20 08:40 Heparin Sodium,Porcine 5,000 Unit/Ml Vial SUBCUT 5,000 unit Q8H FATEMEH Administration Sodium Chloride 1,000 mls @ 100 mls/hr 06/20/20 02:00 06/20/20 11:47 Ns IVCONT 100 mls/hr .Q10H FATEMEH Administration Vancomycin HCl 1,000 mg/ 270 mls @ 270 mls/hr 06/20/20 11:00 06/20/20 13:10 Sodium Chloride IV Infused Q12H [facility] Infusion Meropenem 1 gm/ Sodium 100 mls @ 100 mls/hr 06/20/20 20:00 Chloride IV Q8H [facility] Multivitamins/Minerals 1 tab 06/20/20 09:00 06/20/20 08:40 Multivitamin With Minerals Tablet PO 1 tab DAILY [facility] Administration Pharmacy Consult 1 each 06/19/20 20:23 Consult Rx Perform Med Rec MISCELLANE ONCE PRN Consult order Pharmacy Consult 1 each 06/20/20 01:47 Consult Rx Vancomycin Dosing MISCELLANE DAILY PRN Consult order Senna 17.2 mg 06/20/20 01:49 Sennosides 8.6 Mg Tablet PO BEDTIME PRN Constipation Senna 17.2 mg 06/20/20 01:51 Sennosides 8.6 Mg Tablet PO BID PRN Constipation Sodium Chloride 3 ml 06/20/20 08:00 06/20/20 08:40 0.9 % Sodium Chloride Flush 3 Ml Syringe IVFLUSH 3 ml QSHIFT [facility] Administration Home Medications Medication Instructions Recorded Confirmed Last Taken Type baclofen 10 mg PO BID 06/19/20 06/19/20 06/19/20 History bisacodyl 10 mg PO MOWEFR 06/19/20 06/19/20 Unknown History docusate sodium [Colace] 100 mg PO BID 06/19/20 06/19/20 Unknown History multivitamin with minerals 1 tab PO DAILY 06/19/20 06/19/20 Unknown History sennosides [senna] 17.2 mg PO BID PRN 06/19/20 06/19/20 Unknown History simvastatin 20 mg PO DAILY 06/19/20 06/19/20 06/19/20 History Physical Exam Vital Signs: Vital Signs: Last Vital Signs Temp 96.9 F 06/20/20 11:33 Pulse 66 06/20/20 11:33 Resp 18 06/20/20 11:33 BP 156/76 H 06/20/20 11:33 Pulse Ox 100 06/20/20 11:33 Body Mass Index 22.9 Const: General: cooperative, healthy appearing, comfortable and no acute distress Nutritional Appearance: average body habitus Orientation/consciousness: oriented to person, oriented to place and oriented to time Eyes: General: appearance normal, both eyes and all related structures Chest: Chest palpation & inspection: normal inspection of the chest Resp: Effort & Inspection: normal respiratory effort Cardio: Rate: regular rate GI: Inspection: Yes normal to inspection Skin: Hair: normal Neuro: General: oriented to person, oriented to place and oriented to time Extrem: General: Yes normal to inspection Results Labs Result diagrams: 06/20/20 06:28 06/20/20 06:28 Labs: Abnormal lab results 06/19/20 06/19/20 06/19/20 Range/Units 19:56 19:56 19:56 WBC 28.5 H (4.8-10.8) X10*3/uL Hgb (14.0-18.0) g/dl Hct (42-52) % MCH 25.9 L (27.0-33.0) pg Plt Count 505 H (160-400) X10*3/uL MPV 8.9 L (9.4-12.4) fL Immature Gran % (Auto) 0.8 H (0.0-0.4) % Neut % (Auto) 88.3 H (45-73) % Lymph % (Auto) 3.9 L (20-40) % Lymph # (Auto) 1.1 L (1.2-4.9) X10*3/uL [place] # (Auto) 1.7 H (0.1-1.2) X10*3/uL Abs Immat Gran (auto) 0.23 H (0.00-0.03) X10*3/uL Absolute Neuts (auto) 25.1 H (2.0-8.3) X10*3/uL PT 13.6 H (10.8-13.0) SEC Chloride (96-108) mmol/L Anion Gap (12-20) BUN (9-16) mg/dL Random Glucose 220 H (60-115) mg/dL Lactic Acid (0.5-2.0) mmol/L Lactic Acid Fup @ 2Hr (0.5-2.0) mmol/L Lactic Acid Fup @ 4Hr (0.5-2.0) mmol/L Calcium (8.4-10.2) mg/dL Total Protein 8.1 H (6.5-8.0) g/dL Urine Protein (NEG-TRACE) MG/DL Urine Glucose (UA) (NEG) MG/DL Urine Blood (NEG) Urine RBC (0) /HPF 06/19/20 06/19/20 06/19/20 Range/Units 19:56 21:48 22:31 WBC (4.8-10.8) X10*3/uL Hgb (14.0-18.0) g/dl Hct (42-52) % MCH (27.0-33.0) pg Plt Count (160-400) X10*3/uL MPV (9.4-12.4) fL Immature Gran % (Auto) (0.0-0.4) % Neut % (Auto) (45-73) % Lymph % (Auto) (20-40) % Lymph # (Auto) (1.2-4.9) X10*3/uL [place] # (Auto) (0.1-1.2) X10*3/uL Abs Immat Gran (auto) (0.00-0.03) X10*3/uL Absolute Neuts (auto) (2.0-8.3) X10*3/uL PT (10.8-13.0) SEC Chloride (96-108) mmol/L Anion Gap (12-20) BUN (9-16) mg/dL Random Glucose (60-115) mg/dL Lactic Acid 3.0 H* (0.5-2.0) mmol/L Lactic Acid Fup @ 2Hr 2.3 H* (0.5-2.0) mmol/L Lactic Acid Fup @ 4Hr (0.5-2.0) mmol/L Calcium (8.4-10.2) mg/dL Total Protein (6.5-8.0) g/dL Urine Protein 3+ H (NEG-TRACE) MG/DL Urine Glucose (UA) 100 H (NEG) MG/DL Urine Blood 3+ H (NEG) Urine RBC TNTC H (0) /HPF 06/20/20 06/20/20 06/20/20 Range/Units 00:57 06:28 06:28 WBC 18.1 H (4.8-10.8) X10*3/uL Hgb 12.4 L (14.0-18.0) g/dl Hct 39.8 L (42-52) % MCH 25.8 L (27.0-33.0) pg Plt Count (160-400) X10*3/uL MPV 9.2 L (9.4-12.4) fL Immature Gran % (Auto) 0.9 H (0.0-0.4) % Neut % (Auto) 82.3 H (45-73) % Lymph % (Auto) 8.3 L (20-40) % Lymph # (Auto) (1.2-4.9) X10*3/uL [place] # (Auto) 1.3 H (0.1-1.2) X10*3/uL Abs Immat Gran (auto) 0.16 H (0.00-0.03) X10*3/uL Absolute Neuts (auto) 14.9 H (2.0-8.3) X10*3/uL PT (10.8-13.0) SEC Chloride 109 H (96-108) mmol/L Anion Gap 10 L (12-20) BUN 8 L (9-16) mg/dL Random Glucose 137 H D (60-115) mg/dL Lactic Acid (0.5-2.0) mmol/L Lactic Acid Fup @ 2Hr (0.5-2.0) mmol/L Lactic Acid Fup @ 4Hr 2.8 H* (0.5-2.0) mmol/L Calcium 8.0 L D (8.4-10.2) mg/dL Total Protein (6.5-8.0) g/dL Urine Protein (NEG-TRACE) MG/DL Urine Glucose (UA) (NEG) MG/DL Urine Blood (NEG) Urine RBC (0) /HPF Short CBC 06/19/20 06/20/20 Range/Units 19:56 06:28 WBC 28.5 H 18.1 H (4.8-10.8) X10*3/uL Hgb 14.3 12.4 L (14.0-18.0) g/dl Hct 45.7 39.8 L (42-52) % Plt Count 505 H 328 D (160-400) X10*3/uL BMP 06/19/20 06/20/20 19:56 06:28 Sodium 142 142 Potassium 3.9 4.4 Chloride 106 109 H Carbon Dioxide 25 27 BUN 11 8 L Creatinine 0.81 0.71 Calcium 8.8 8.0 L D Liver Function 06/19/20 Range/Units 19:56 Total Bilirubin 0.3 (0.0-1.0) mg/dL Direct Bilirubin 0.2 (0.0-0.5) mg/dL AST 12 (5-37) U/L ALT 11 (0-40) U/L Alkaline Phosphatase 73 (39-117) U/L Albumin 3.7 (3.5-5.0) g/dL Urine 06/19/20 Range/Units 21:48 Urine Color RED Urine Appearance TURBID Urine pH 7.0 (5.0-8.0) Ur Specific [place] 1.025 (1.005-1.025) Urine Protein 3+ H (NEG-TRACE) MG/DL Urine Glucose (UA) 100 H (NEG) MG/DL All other labs normal. Assessment and Plan (1) Nephrolithiasis: Status: Acute (2) Urinary retention: Status: Inactive Continue with Rowley catheter Treat infection
--- NOTE | 2020-06-20 13:38 | MHC.CLN ---
RE: CONSULT PT WITH 20% SIGNIFICANT WT LOSS X 6 MONTHS R/T PROLONGED HOSPITAL STAY AND POOR TO FAIR PO INTAKE. PT WITH INCREASED NUTRITION RISK R/T PRESSURE INJURY DIET RX: CARDIAC-WILL CHANGE TO REGULAR PT REPORTED HE DRANK JAIME SUPPLEMENT FOR 6 MONTHS AND DID NOT HELP HIM HEAL. PT ALSO REFUSING TO DRINK ENSURE SUPPLEMENTS. DISCUSSED IMPORTANCE OF HIGH PROTEIN DIET TO PROMOTE WOUND HEALING SEE ALSO CLINICAL NUTRITION ASSESSMENT
--- NOTE | 2020-06-20 15:42 | PM.CNGS ---
History of Present Illness Consult details Consult date: 06/20/20 Narrative: 55-year-old male with known paraplegia secondary to a spinal cord injury at level C7, referred to me because of decubitus ulcers. He was admitted because of UTI. He has a chronic use of condom catheter because of his spinal cord injury. He had spent about 6 months at a rehab institution prior to his current illness. He apparently has known bilateral decubitus ulcers on both buttocks. There was note of some drainage on the right buttock ulcers so referral sent out to me. Review of Systems Constitutional: Constitutional: Reports fever(s) Cardiovascular: Cardiovascular: Denies chest pain, Denies dyspnea and Denies dyspnea on exertion Respiratory: Respiratory: Denies cough, Denies dyspnea and Denies dyspnea on exertion Gastrointestinal: Gastrointestinal: Denies hematochezia and Denies change in bowel habits Genitourinary: Genitourinary: Denies hematuria and Denies difficulty urinating Comments: Has chronic indwelling catheter Musculoskeletal: Musculoskeletal: Denies back pain and Denies limited range of motion Neurologic: Denies focal weakness and Denies convulsions Comments: Paraplegic, has frequent spasms of both lower extremities Psychiatric: Psychiatric: Denies depression and Denies mood swings PMFSH Past Medical History Medical History (Updated 06/20/20 @ 15:46 by Tom Manriquez MD) C7 spinal cord injury Decubitus ulcer of buttock, stage 2 Decubitus ulcer of left buttock, stage 2 Paralysis Paraplegia Urinary retention Social History Social History Household Members: None Housing: Apartment Do you presently have visiting nurse or other home services: Yes Smoking Status: Former smoker Smoked in Last 30 Days: No Use of substances other than those prescribed or required for medical reasons: No Substance Use Type: Marijuana Substance Use Type Other:: edibles years ago Currently Displaying Signs/Symptoms of Drug Intoxication Withdrawal: No Have you been hit, kicked, punched, or otherwise hurt by someone within the past year? If so, by whom?: No Do you feel safe in your current relationship?: No Current Relationship Is there a partner from a previous relationship who is making you feel unsafe now?: No Advance Directives: No Advance Directives Information Provided: Yes Do you have thoughts of harming others: None Do you have a plan to hurt others: No Plan Recently lost weight without trying: Yes How much weight loss: 14-23 pounds Eating poorly because of decreased appetite: Yes Nutrition screen score: 5 Nutrition Risks: Poor intake 0-25% >4 days service: Yes Current occupational status: retired and disabled Meds Allergies Allergy/AdvReac Type Severity Reaction Status Date / Time No Known Allergies Allergy Unverified 10/26/19 19:31 [No Known Allergies*] Active Medications: Current Medications Generic Name Dose Route Start Last Admin Trade Name Nolbertoq PRN Reason Stop Dose Admin Acetaminophen 650 mg 06/20/20 01:49 Acetaminophen 325 Mg Tablet PO Q6H PRN Pain, Mild (Pain Scale 1-3) Atorvastatin Calcium 10 mg 06/20/20 09:00 06/20/20 08:40 Atorvastatin Calcium 10 Mg Tablet PO 10 mg DAILY FATEMEH Administration Baclofen 10 mg 06/20/20 09:00 06/20/20 08:40 Baclofen 10 Mg Tablet PO 10 mg BID FATEMEH Administration Docusate Sodium 100 mg 06/20/20 09:00 06/20/20 08:41 Docusate Sodium 100 Mg Capsule PO Not Given BID FATEMEH Heparin Sodium (Porcine) 5,000 unit 06/20/20 02:00 06/20/20 08:40 Heparin Sodium,Porcine 5,000 Unit/Ml Vial SUBCUT 5,000 unit Q8H FATEMEH Administration Sodium Chloride 1,000 mls @ 100 mls/hr 06/20/20 02:00 06/20/20 11:47 Ns IVCONT 100 mls/hr .Q10H FATEMEH Administration Vancomycin HCl 1,000 mg/ 270 mls @ 270 mls/hr 06/20/20 11:00 06/20/20 13:10 Sodium Chloride IV Infused Q12H FATEMEH Infusion Meropenem 1 gm/ Sodium 100 mls @ 100 mls/hr 06/20/20 20:00 Chloride IV Q8H FATEMEH Multivitamins/Minerals 1 tab 06/20/20 09:00 06/20/20 08:40 Multivitamin With Minerals Tablet PO 1 tab DAILY FATEMEH Administration Pharmacy Consult 1 each 06/19/20 20:23 Consult Rx Perform Med Rec MISCELLANE ONCE PRN Consult order Pharmacy Consult 1 each 06/20/20 01:47 Consult Rx Vancomycin Dosing MISCELLANE DAILY PRN Consult order Senna 17.2 mg 06/20/20 01:49 Sennosides 8.6 Mg Tablet PO BEDTIME PRN Constipation Senna 17.2 mg 06/20/20 01:51 Sennosides 8.6 Mg Tablet PO BID PRN Constipation Sodium Chloride 3 ml 06/20/20 08:00 06/20/20 15:21 0.9 % Sodium Chloride Flush 3 Ml Syringe IVFLUSH Not Given QSHIFT [facility] Home Medications Medication Instructions Recorded Confirmed Last Taken Type baclofen 10 mg PO BID 06/19/20 06/19/20 06/19/20 History bisacodyl 10 mg PO MOWEFR 06/19/20 06/19/20 Unknown History docusate sodium [Colace] 100 mg PO BID 06/19/20 06/19/20 Unknown History multivitamin with minerals 1 tab PO DAILY 06/19/20 06/19/20 Unknown History sennosides [senna] 17.2 mg PO BID PRN 06/19/20 06/19/20 Unknown History simvastatin 20 mg PO DAILY 06/19/20 06/19/20 06/19/20 History Physical Exam Vital Signs: Vital Signs: Last Vital Signs Temp 98.4 F 06/20/20 15:07 Pulse 75 06/20/20 15:07 Resp 16 06/20/20 15:07 BP 138/64 06/20/20 15:07 Pulse Ox 99 06/20/20 15:07 Body Mass Index 22.9 Const: General: comfortable and no acute distress Orientation/consciousness: patient oriented x3 Neck: Neck: Yes no lymphadenopathy Resp: Auscultation: clear to auscultation bilaterally Cardio: Rhythm: regular rhythm GI: Palpation (GI): Soft to palpation, nontender and no guarding Back/Spine/Pelvis: Other: Decubitus ulcers on both buttocks Right side of the buttock with note of a large status 2-3 decubitus ulcer measuring about 3 cm across, good granulation tissue without necrotic tissue or gangrene or gangrene, no pus Left side of the buttock with a well-healing ulcer, clean Neuro: Other: Paraplegic General: patient oriented x3 Results Labs Result diagrams: 06/20/20 06:28 06/20/20 06:28 Labs: Abnormal lab results 06/19/20 06/19/20 06/19/20 Range/Units 19:56 19:56 19:56 WBC 28.5 H (4.8-10.8) X10*3/uL Hgb (14.0-18.0) g/dl Hct (42-52) % MCH 25.9 L (27.0-33.0) pg Plt Count 505 H (160-400) X10*3/uL MPV 8.9 L (9.4-12.4) fL Immature Gran % (Auto) 0.8 H (0.0-0.4) % Neut % (Auto) 88.3 H (45-73) % Lymph % (Auto) 3.9 L (20-40) % Lymph # (Auto) 1.1 L (1.2-4.9) X10*3/uL [place] # (Auto) 1.7 H (0.1-1.2) X10*3/uL Abs Immat Gran (auto) 0.23 H (0.00-0.03) X10*3/uL Absolute Neuts (auto) 25.1 H (2.0-8.3) X10*3/uL PT 13.6 H (10.8-13.0) SEC Chloride (96-108) mmol/L Anion Gap (12-20) BUN (9-16) mg/dL Random Glucose 220 H (60-115) mg/dL Lactic Acid (0.5-2.0) mmol/L Lactic Acid Fup @ 2Hr (0.5-2.0) mmol/L Lactic Acid Fup @ 4Hr (0.5-2.0) mmol/L Calcium (8.4-10.2) mg/dL Total Protein 8.1 H (6.5-8.0) g/dL Urine Protein (NEG-TRACE) MG/DL Urine Glucose (UA) (NEG) MG/DL Urine Blood (NEG) Urine RBC (0) /HPF 06/19/20 06/19/20 06/19/20 Range/Units 19:56 21:48 22:31 WBC (4.8-10.8) X10*3/uL Hgb (14.0-18.0) g/dl Hct (42-52) % MCH (27.0-33.0) pg Plt Count (160-400) X10*3/uL MPV (9.4-12.4) fL Immature Gran % (Auto) (0.0-0.4) % Neut % (Auto) (45-73) % Lymph % (Auto) (20-40) % Lymph # (Auto) (1.2-4.9) X10*3/uL [place] # (Auto) (0.1-1.2) X10*3/uL Abs Immat Gran (auto) (0.00-0.03) X10*3/uL Absolute Neuts (auto) (2.0-8.3) X10*3/uL PT (10.8-13.0) SEC Chloride (96-108) mmol/L Anion Gap (12-20) BUN (9-16) mg/dL Random Glucose (60-115) mg/dL Lactic Acid 3.0 H* (0.5-2.0) mmol/L Lactic Acid Fup @ 2Hr 2.3 H* (0.5-2.0) mmol/L Lactic Acid Fup @ 4Hr (0.5-2.0) mmol/L Calcium (8.4-10.2) mg/dL Total Protein (6.5-8.0) g/dL Urine Protein 3+ H (NEG-TRACE) MG/DL Urine Glucose (UA) 100 H (NEG) MG/DL Urine Blood 3+ H (NEG) Urine RBC TNTC H (0) /HPF 06/20/20 06/20/20 06/20/20 Range/Units 00:57 06:28 06:28 WBC 18.1 H (4.8-10.8) X10*3/uL Hgb 12.4 L (14.0-18.0) g/dl Hct 39.8 L (42-52) % MCH 25.8 L (27.0-33.0) pg Plt Count (160-400) X10*3/uL MPV 9.2 L (9.4-12.4) fL Immature Gran % (Auto) 0.9 H (0.0-0.4) % Neut % (Auto) 82.3 H (45-73) % Lymph % (Auto) 8.3 L (20-40) % Lymph # (Auto) (1.2-4.9) X10*3/uL [place] # (Auto) 1.3 H (0.1-1.2) X10*3/uL Abs Immat Gran (auto) 0.16 H (0.00-0.03) X10*3/uL Absolute Neuts (auto) 14.9 H (2.0-8.3) X10*3/uL PT (10.8-13.0) SEC Chloride 109 H (96-108) mmol/L Anion Gap 10 L (12-20) BUN 8 L (9-16) mg/dL Random Glucose 137 H D (60-115) mg/dL Lactic Acid (0.5-2.0) mmol/L Lactic Acid Fup @ 2Hr (0.5-2.0) mmol/L Lactic Acid Fup @ 4Hr 2.8 H* (0.5-2.0) mmol/L Calcium 8.0 L D (8.4-10.2) mg/dL Total Protein (6.5-8.0) g/dL Urine Protein (NEG-TRACE) MG/DL Urine Glucose (UA) (NEG) MG/DL Urine Blood (NEG) Urine RBC (0) /HPF Short CBC 06/19/20 06/20/20 Range/Units 19:56 06:28 WBC 28.5 H 18.1 H (4.8-10.8) X10*3/uL Hgb 14.3 12.4 L (14.0-18.0) g/dl Hct 45.7 39.8 L (42-52) % Plt Count 505 H 328 D (160-400) X10*3/uL BMP 06/19/20 06/20/20 19:56 06:28 Sodium 142 142 Potassium 3.9 4.4 Chloride 106 109 H Carbon Dioxide 25 27 BUN 11 8 L Creatinine 0.81 0.71 Calcium 8.8 8.0 L D Liver Function 06/19/20 Range/Units 19:56 Total Bilirubin 0.3 (0.0-1.0) mg/dL Direct Bilirubin 0.2 (0.0-0.5) mg/dL AST 12 (5-37) U/L ALT 11 (0-40) U/L Alkaline Phosphatase 73 (39-117) U/L Albumin 3.7 (3.5-5.0) g/dL Urine 06/19/20 Range/Units 21:48 Urine Color RED Urine Appearance TURBID Urine pH 7.0 (5.0-8.0) Ur Specific [place] 1.025 (1.005-1.025) Urine Protein 3+ H (NEG-TRACE) MG/DL Urine Glucose (UA) 100 H (NEG) MG/DL All other labs normal. Assessment and Plan (1) Decubitus ulcer of left buttock, stage 2: Status: Acute He has a stage 2-3 decubitus ulcer of the right buttock. This is clean and does not have any necrotic or gangrenous tissue. I do not feel that this the needs any surgical debridement at this time. We can continue with the current wound care. He should have change of positioning every 2 hours for ulcer precaution. He currently is being treated for sepsis likely from his urinary tract infection. I will follow along while he is in the hospital.
--- NOTE | 2020-06-20 18:35 | PC.NURSE ---
Rowley inserted per order, no drainage as patient had just urinated prior to insertion. Bladder scanned due to difficulty inserting due to enlarged prostate; no residual present. Patient repositioned q2hr. Foam dressings on buttocks and lateral thighs changed.
[2020-06-21 03:10] VITALS: BP 152/73; PULSE 84; RESP 18; TEMP 37.2; O2SAT 96
[2020-06-21] MEDS: Heparin Sodium,Porcine 5,000 UNIT/ML VIAL 5000 UNIT SUBCUT ×3 (04:39→17:58)
[2020-06-21 07:22] VITALS: BP 108/60; PULSE 86; RESP 18; TEMP 36.7; O2SAT 100
[2020-06-21] MEDS: Atorvastatin Calcium 10 MG TABLET PO (07:50)
[2020-06-21] MEDS: Baclofen 10 MG TABLET PO ×2 (07:50→21:12)
[2020-06-21 08:00] VITALS: BP 108/60; PULSE 86; RESP 18; O2SAT 100
[2020-06-21] MEDS: 0.9 % Sodium Chloride 1,000 ML 100 ML IVCONT ×2 (09:33→19:17)
[2020-06-21 10:02] LABS: Hematocrit 33.8 % (42-52); Hemoglobin 10.4 g/dl (14.0-18.0); Mean Corpuscular HGB Conc 30.8 g/dl (31.0-36.0); Mean Corpuscular Hemoglobin 25.7 pg (27.0-33.0); Mean Corpuscular Volume 83.5 fL (80-98); Mean Platelet Volume 9.5 fL (9.4-12.4); Platelet Count 294 X10*3/uL (160-400); Red Blood Count 4.05 X10*6/uL (4.60-5.80); Red Cell Distribution Width 15.9 % (11.0-16.0); White Blood Count 12.7 X10*3/uL (4.8-10.8)
[2020-06-21 10:30] LABS: Anion Gap 10 (12-20); Blood Urea Nitrogen 7 mg/dL (9-16); Calcium 7.8 mg/dL (8.4-10.2); Carbon Dioxide 26 mmol/L (22-29); Chloride 111 mmol/L (96-108); Creatinine Clr Calc Pharmacy 101.9; Estimated Glomerular Filt Rate > 60; Glucose Random 136 mg/dL (60-115); Potassium 3.8 mmol/L (3.3-5.1); Sodium 143 mmol/L (135-145)
[2020-06-21 10:32] LABS: Vancomycin Trough 10.3 mcg/mL (10.0-20.0)
--- NOTE | 2020-06-21 11:38 | MHC.CM.PN ---
PER HOSPITALIST ROUNDS, AWAITING CULTURES. PATIENT WILL LIKELY BE HERE OVER THE WEEKEND PRIOR TO RETURNING HOME WITH HIS [facility]
--- NOTE | 2020-06-21 11:43 | MHC.CLN ---
F/U PO INTAKE 50% AVG DIET RX: REGULAR-APPROPRIATE PT REFUSES NUTRITION SUPPLEMENTS FOR WOUND HEALING ENCOURAGED HIGH PO PROTEIN DIET FOR WOUNDS MONITOR PO INTAKE CLOSELY FOLLOWING
--- NOTE | 2020-06-21 11:49 | HO.PM.IMPN ---
Subjective Subjective Date of Service: 06/21/20 Interval History: seen and examined feeling better, but not quiet at baseline ROS General - no fevers or chills Cardiovascular - no chest pain Respiratory - no shortness of breath or cough Abdominal- no abdominal pain, nausea, vomiting, diarrhea Physical Exam Vital Signs: Vital Signs: Last Vital Signs Temp 98.0 F 06/21/20 07:22 Pulse 86 06/21/20 08:00 Resp 18 06/21/20 08:00 BP 108/60 06/21/20 08:00 Pulse Ox 100 06/21/20 08:00 Body Mass Index 22.9 Const: Other: General - no acute distress, appears comfortable Cardiovascular - regular rate and rhythm, S1-S2 Lungs - normal respiratory effort, clear to auscultation bilaterally, no wheezing Abdomen - soft, nontender, no rebound or guarding Extremities - no edema bilaterally Neuro - awake and alert, no focal deficits Skin - R buttock with pressure ucler Skin: Other: Objective Data Current Medications Generic Name Dose Route Start Last Admin Trade Name Nolbertoq PRN Reason Stop Dose Admin Acetaminophen 650 mg 06/20/20 01:49 Acetaminophen 325 Mg Tablet PO Q6H PRN Pain, Mild (Pain Scale 1-3) Atorvastatin Calcium 10 mg 06/20/20 09:00 06/21/20 07:50 Atorvastatin Calcium 10 Mg Tablet PO 10 mg DAILY FATEMEH Administration Baclofen 10 mg 06/20/20 09:00 06/21/20 07:50 Baclofen 10 Mg Tablet PO 10 mg BID FATEMEH Administration Docusate Sodium 100 mg 06/20/20 09:00 06/21/20 07:49 Docusate Sodium 100 Mg Capsule PO Not Given BID [facility] Heparin Sodium (Porcine) 5,000 unit 06/20/20 02:00 06/21/20 09:33 Heparin Sodium,Porcine 5,000 Unit/Ml Vial SUBCUT 5,000 unit Q8H FATEMEH Administration Sodium Chloride 1,000 mls @ 100 mls/hr 06/20/20 02:00 06/21/20 09:33 Ns IVCONT 100 mls/hr .Q10H FATEMEH Administration Meropenem 1 gm/ Sodium 100 mls @ 100 mls/hr 06/20/20 20:00 06/21/20 05:38 Chloride IV Infused Q8H FATEMEH Infusion Multivitamins/Minerals 1 tab 06/20/20 09:00 06/21/20 07:49 Multivitamin With Minerals Tablet PO 1 tab DAILY [facility] Administration Pharmacy Consult 1 each 06/19/20 20:23 Consult Rx Perform Med Rec MISCELLANE ONCE PRN Consult order Pharmacy Consult 1 each 06/20/20 01:47 Consult Rx Vancomycin Dosing MISCELLANE DAILY PRN Consult order Senna 17.2 mg 06/20/20 01:49 Sennosides 8.6 Mg Tablet PO BEDTIME PRN Constipation Senna 17.2 mg 06/20/20 01:51 Sennosides 8.6 Mg Tablet PO BID PRN Constipation Sodium Chloride 3 ml 06/20/20 08:00 06/21/20 07:49 0.9 % Sodium Chloride Flush 3 Ml Syringe IVFLUSH Not Given QSHIFT [facility] Labs CBC & Chem 7: 06/21/20 09:40 06/21/20 09:40 Microbiology Microbiology Results: Microbiology 06/20/20 06:34 Urine [place] Urine Culture - Final 06/19/20 20:07 Blood - Venous Blood Culture - Preliminary Coag negative Staphylococcus 06/19/20 20:07 Blood - Venous Blood Culture - Preliminary No growth after 24 hours. Assessment and Plan (1) Severe sepsis: Status: Acute Assessment and Plan: This is a 55 yo paraplegiec who self catherizes himself and now presents to the hospital with hematuria and sepsis. 1. Sepsis POA urine cx negative blood cx negative @ 24 hours (1/2 bottles growing coag neg staph -- likely contaminant) 2. UTI / Hematuria / Nephrolithiasis / Acute Blood loss urine cx negative -- was febrile upon arrival and had rigors at home; descalate antibiotics for rocephin - likely ceftin upon d/c Urology recommended indwelling catheter -- patient willing to keep this in for now, but upon d/c wants to resume his straight catherization 3. R Buttock ulcer Gen surg input appreciated unlikely causing his infection will get wound care for further guidance Full Code DVT pptx, mechanical due to hematuria
[2020-06-21 12:00] VITALS: BP 144/69; PULSE 79; RESP 18; TEMP 37.3; O2SAT 98
[2020-06-21] MEDS: cefTRIAXone sodium 1 GM in 0.9 % Sodium Chloride 50 ML IV (12:15)
--- NOTE | 2020-06-21 13:07 | P.CNID_ITS ---
History of Present Illness Data of Consult Service Date: 06/21/20 Requesting physician: Aditya Gallegos Primary Care Provider: Siddhartha Talamantes MD HPI Reason for consult: sepsis He presents to hospital with weakness as well as sepsis and fever to 101 He has tachycardia and CT shows some bladder fullness, ?infection. He has decubiti buttocks He has previous ESBL UTI Review of Systems Review of Systems: Yes all other systems are reviewed and are negative PMFSH Past Medical History Medical History (Updated 06/30/20 @ 00:01 by Rodolfo Hollingsworth) C7 spinal cord injury Decubitus ulcer of buttock, stage 2 Paralysis Paraplegia Urinary retention Family History Family history: reviewed and not pertinent Social History Social History Household Members: None Housing: Apartment Do you presently have visiting nurse or other home services: Yes Substance Use Type: Marijuana service: Yes Current occupational status: retired and disabled Meds Allergies Allergy/AdvReac Type Severity Reaction Status Date / Time No Known Allergies Allergy Unverified 10/26/19 19:31 [No Known Allergies*] Active Medications: Current Medications Generic Name Dose Route Start Last Admin Trade Name Freq PRN Reason Stop Dose Admin Acetaminophen 650 mg 06/20/20 01:49 Acetaminophen 325 Mg Tablet PO Q6H PRN Pain, Mild (Pain Scale 1-3) Atorvastatin Calcium 10 mg 06/20/20 09:00 06/21/20 07:50 Atorvastatin Calcium 10 Mg Tablet PO 10 mg DAILY FATEMEH Administration Baclofen 10 mg 06/20/20 09:00 06/21/20 07:50 Baclofen 10 Mg Tablet PO 10 mg BID FATEMEH Administration Docusate Sodium 100 mg 06/20/20 09:00 06/21/20 07:49 Docusate Sodium 100 Mg Capsule PO Not Given BID FATEM[facility] Heparin Sodium (Porcine) 5,000 unit 06/20/20 02:00 06/21/20 09:33 Heparin Sodium,Porcine 5,000 Unit/Ml Vial SUBCUT 5,000 unit Q8H FATEMEH Administration Sodium Chloride 1,000 mls @ 100 mls/hr 06/20/20 02:00 06/21/20 09:33 Ns IVCONT 100 mls/hr .Q10H FATEMEH Administration Ceftriaxone Sodium 1 gm/ 50 mls @ 100 mls/hr 06/21/20 12:00 06/21/20 12:46 Sodium Chloride IV Infused Q24H [facility] Infusion Multivitamins/Minerals 1 tab 06/20/20 09:00 06/21/20 07:49 Multivitamin With Minerals Tablet PO 1 tab DAILY [facility] Administration Pharmacy Consult 1 each 06/19/20 20:23 Consult Rx Perform Med Rec MISCELLANE ONCE PRN Consult order Pharmacy Consult 1 each 06/20/20 01:47 Consult Rx Vancomycin Dosing MISCELLANE DAILY PRN Consult order Senna 17.2 mg 06/20/20 01:49 Sennosides 8.6 Mg Tablet PO BEDTIME PRN Constipation Senna 17.2 mg 06/20/20 01:51 Sennosides 8.6 Mg Tablet PO BID PRN Constipation Sodium Chloride 3 ml 06/20/20 08:00 06/21/20 07:49 0.9 % Sodium Chloride Flush 3 Ml Syringe IVFLUSH Not Given QSHIFT [facility] Home Medications Medication Instructions Recorded Confirmed Last Taken Type baclofen 10 mg PO BID 06/19/20 06/19/20 06/19/20 History bisacodyl 10 mg PO MOWEFR 06/19/20 06/19/20 Unknown History docusate sodium [Colace] 100 mg PO BID 06/19/20 06/19/20 Unknown History multivitamin with minerals 1 tab PO DAILY 06/19/20 06/19/20 Unknown History sennosides [senna] 17.2 mg PO BID PRN 06/19/20 06/19/20 Unknown History simvastatin 20 mg PO DAILY 06/19/20 06/19/20 06/19/20 History Physical Exam Vital Signs: Vital Signs: Last Vital Signs Temp 99.1 F 06/21/20 12:00 Pulse 79 06/21/20 12:00 Resp 18 06/21/20 12:00 BP 144/69 H 06/21/20 12:00 Pulse Ox 98 06/21/20 12:00 Body Mass Index 22.9 Const: General: cooperative HENMT: Head: Yes normal to inspection Mouth: Normal oral and palatal mucosa present Resp: Effort & Inspection: normal respiratory effort Cardio: Rate: regular rate Rhythm: regular rhythm GI: Palpation (GI): Soft to palpation and nontender Skin: General skin exam: no rashes or lesions noted Extrem: General: Yes normal to inspection Results Labs CBC & Chem 7: 06/21/20 09:40 06/21/20 09:40 Labs: Short CBC 06/21/20 Range/Units 09:40 WBC 12.7 H (4.8-10.8) X10*3/uL Hgb 10.4 L (14.0-18.0) g/dl Hct 33.8 L (42-52) % Plt Count 294 (160-400) X10*3/uL BMP 06/21/20 09:40 Sodium 143 Potassium 3.8 Chloride 111 H Carbon Dioxide 26 BUN 7 L Creatinine 0.84 Calcium 7.8 L Microbiology Microbiology Results: Microbiology 06/20/20 06:34 Urine [place] Urine Culture - Final 06/19/20 20:07 Blood - Venous Blood Culture - Preliminary Coag negative Staphylococcus 06/19/20 20:07 Blood - Venous Blood Culture - Preliminary No growth after 24 hours. Assessment and Plan (1) Decubitus ulcer of left buttock, stage 2: Problem details: Incorrectly staged Status: Deleted (2) Sepsis: Qualifiers: Sepsis acute organ dysfunction status: without acute organ dysfunction Sepsis type: sepsis due to unspecified organism Qualified Code(s): A41.9 - Sepsis, unspecified organism Problem details: Patient may have had proximal UTI infection with no subsequent positive urine culture. He has no positive cultures for ESBL at this time Status: Resolved Would cover with Ceftriaxone at this time Po Ceftin 10 days outpatient Wound care continue for buttock ulcer
--- NOTE | 2020-06-21 14:22 | HO.WOUNDCONS ---
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 He has an incomplete C7 spine injury and is independent with most activities. He is wheelchair bound. He transfers with the slide board. He spent 6 months recently at [facility] that specializes in wounds but they were unable to heal the ischial presure injury. It has been there for over one year. He developed hematuria and signs of sepsis. He was admitted and is now on IV ertapenem for the UTI. We are asked to to make recommendations regarding this ischial wound which is long-standing. In error it has been documented as a stage II decubitus ulcer. It is full thickness with bone exposure. This is incorrect staging upon admission. Review of Systems Review of Systems: missed bowel program today, less fatigue now that infection is treated. Still has blood in urine. Yes all other systems are reviewed and are negative [facility] Medical History C7 spinal cord injury Decubitus ulcer of buttock, stage 2 Decubitus ulcer of left buttock, stage 2 Paralysis Paraplegia Urinary retention Family history: reviewed and not pertinent Social History Household Members: None Housing: Apartment Do you presently have visiting nurse or other home services: Yes Smoking Status: Former smoker Smoked in Last 30 Days: No Use of substances other than those prescribed or required for medical reasons: No Substance Use Type: Marijuana Substance Use Type Other:: edibles years ago Currently Displaying Signs/Symptoms of Drug Intoxication Withdrawal: No Have you been hit, kicked, punched, or otherwise hurt by someone within the past year? If so, by whom?: No Do you feel safe in your current relationship?: No Current Relationship Is there a partner from a previous relationship who is making you feel unsafe now?: No Advance Directives: No Advance Directives Information Provided: Yes Do you have thoughts of harming others: None Do you have a plan to hurt others: No Plan Recently lost weight without trying: Yes How much weight loss: 14-23 pounds Eating poorly because of decreased appetite: Yes Nutrition screen score: 5 Nutrition Risks: Poor intake 0-25% >4 days service: Yes Current occupational status: retired and disabled Meds Allergies Allergy/AdvReac Type Severity Reaction Status Date / Time No Known Allergies Allergy Unverified 10/26/19 19:31 [No Known Allergies*] Active Medications: Current Medications Generic Name Dose Route Start Last Admin Trade Name Freq PRN Reason Stop Dose Admin Acetaminophen 650 mg 06/20/20 01:49 Acetaminophen 325 Mg Tablet PO Q6H PRN Pain, Mild (Pain Scale 1-3) Atorvastatin Calcium 10 mg 06/20/20 09:00 06/21/20 07:50 Atorvastatin Calcium 10 Mg Tablet PO 10 mg DAILY FATEMEH Administration Baclofen 10 mg 06/20/20 09:00 06/21/20 07:50 Baclofen 10 Mg Tablet PO 10 mg BID FATEMEH Administration Docusate Sodium 100 mg 06/20/20 09:00 06/21/20 07:49 Docusate Sodium 100 Mg Capsule PO Not Given BID FATEMEH Heparin Sodium (Porcine) 5,000 unit 06/20/20 02:00 06/21/20 09:33 Heparin Sodium,Porcine 5,000 Unit/Ml Vial SUBCUT 5,000 unit Q8H FATEMEH Administration Sodium Chloride 1,000 mls @ 100 mls/hr 06/20/20 02:00 06/21/20 09:33 Ns IVCONT 100 mls/hr .Q10H FATEMEH Administration Ceftriaxone Sodium 1 gm/ 50 mls @ 100 mls/hr 06/21/20 12:00 06/21/20 12:46 Sodium Chloride IV Infused Q24H [facility] Infusion Multivitamins/Minerals 1 tab 06/20/20 09:00 06/21/20 07:49 Multivitamin With Minerals Tablet PO 1 tab DAILY FATEMEH Administration Pharmacy Consult 1 each 06/19/20 20:23 Consult Rx Perform Med Rec MISCELLANE ONCE PRN Consult order Pharmacy Consult 1 each 06/20/20 01:47 Consult Rx Vancomycin Dosing MISCELLANE DAILY PRN Consult order Senna 17.2 mg 06/20/20 01:49 Sennosides 8.6 Mg Tablet PO BEDTIME PRN Constipation Senna 17.2 mg 06/20/20 01:51 Sennosides 8.6 Mg Tablet PO BID PRN Constipation Sodium Chloride 3 ml 06/20/20 08:00 06/21/20 07:49 0.9 % Sodium Chloride Flush 3 Ml Syringe IVFLUSH Not Given QSHIFT [facility] Home Medications Medication Instructions Recorded Confirmed Last Taken Type baclofen 10 mg PO BID 06/19/20 06/19/20 06/19/20 History bisacodyl 10 mg PO MOWEFR 06/19/20 06/19/20 Unknown History docusate sodium [Colace] 100 mg PO BID 06/19/20 06/19/20 Unknown History multivitamin with minerals 1 tab PO DAILY 06/19/20 06/19/20 Unknown History sennosides [senna] 17.2 mg PO BID PRN 06/19/20 06/19/20 Unknown History simvastatin 20 mg PO DAILY 06/19/20 06/19/20 06/19/20 History Physical Exam Vital Signs and Narrative: Vital Signs: Last Vital Signs Temp 99.1 F 06/21/20 12:00 Pulse 79 06/21/20 12:00 Resp 18 06/21/20 12:00 BP 144/69 H 06/21/20 12:00 Pulse Ox 98 06/21/20 12:00 Body Mass Index 22.9 Pleasant, cooperative no acute distress. Vitals as above. Relatively independent with bed mobility, requires assistance the legs. Active spasm results with pass of movement. Patient reports worsening spasms while supine. The right ischium is exposed. A large piece of alginate is removed from the wound. This reveals a full-thickness wound which is through the muscle. Some fascia may protect the ischial tuberosity but for the most part bony exposure is appreciated. There is no odor. There is no purulence. The alginate that was removed from the wound is mostly serous drainage. The periwound is healthy. There is no streaking or warmth. There other foam dressings in place which are for protection. Results Labs CBC and Chem 7: 06/21/20 09:40 06/21/20 09:40 Labs: Laboratory Results - last 24 hr 06/21/20 06/21/20 06/21/20 09:40 09:40 09:40 MCV 83.5 MCH 25.7 L MCHC 30.8 L RDW 15.9 Plt Count 294 MPV 9.5 Absolute Nucleated RBC 0.000 Nucleated RBC % (auto) 0.0 Anion Gap 10 L Estim Creat Clear Calc 101.9 Estimated GFR > 60 Random Glucose 136 H Calcium 7.8 L Vancomycin Trough 10.3 Assessment and Plan (1) Decubitus ulcer of left buttock, stage 2: Start date: 06/21/20 Problem details: Incorrectly staged Status: Acute 55-year-old male with long-standing right ischial ulcer in the setting of tetraplegia which has failed wound VAC, IV antibiotics and other wound care modalities. It is full thickness with fascia and muscle exposed, however the bone of ischial tuberosity is not exposed. This is a stage IV pressure ulcer which pre dates this hospitalization. For this hospitalization, it is most appropriate to use alginate packing. The optimal product is Aquacel Ag rope with silver. A reasonable alternative for this hospitalization is Durafiber calcium alginate Ag cut in ribbon and packed into the wound. Several applications may be required to to the large size of the wound. See orders for details. Avoid occlusive foam for this wound which is actively draining. He has plans to return to [place] for wound care upon discharge.
[2020-06-21 16:00] VITALS: BP 105/51; PULSE 80; RESP 15; TEMP 37.2; O2SAT 98
--- NOTE | 2020-06-21 16:40 | P.PNGS_ITS ---
Subjective Subjective Date of Service: 06/21/20 Interval history: no new complaints says he feels better overall Physical Exam Vital Signs: Vital Signs: Last Vital Signs Temp 98.9 F 06/21/20 16:00 Pulse 80 06/21/20 16:00 Resp 15 06/21/20 16:00 BP 105/51 L 06/21/20 16:00 Pulse Ox 98 06/21/20 16:00 Body Mass Index 22.9 Chemistry 06/19/20 06/20/20 06/21/20 19:56 06:28 09:40 Sodium 142 142 143 Potassium 3.9 4.4 3.8 Carbon Dioxide 25 27 26 BUN 11 8 L 7 L Creatinine 0.81 0.71 0.84 Calcium 8.8 8.0 L D 7.8 L Hematology 06/19/20 06/20/20 06/21/20 19:56 06:28 09:40 WBC 28.5 H 18.1 H 12.7 H Hgb 14.3 12.4 L 10.4 L Plt Count 505 H 328 D 294 Urinalysis 06/19/20 21:48 Urine Color RED Urine Appearance TURBID Urine pH 7.0 Ur Specific Gravit y 1.025 Urine Protein 3+ H Urine Glucose (UA) 100 H Urine Ketones NEG Urine Blood 3+ H Urine Nitrite NEG Ur Leukocyte Gloria ase NEG Urine RBC TNTC H Urine WBC 0 Ur Squamous Epith Cells NONE Const: General: no acute distress GI: Palpation (GI): Soft to palpation, not firm and nontender Back/Spine/Pelvis: Other: right buttock decub ulcer dressings clean, dry Progress Note: A&P Assessment and plan (1) Decubitus ulcer of left buttock, stage 2: Problem details: Incorrectly staged Status: Acute Assessment and Plan: right buttock ulcer clean no need for debridement continue current wound care change position every 2hours Fall Risk Details Current Medications: Current Medications Generic Name Dose Route Start Last Admin Trade Name Freq PRN Reason Stop Dose Admin Acetaminophen 650 mg 06/20/20 01:49 Acetaminophen 325 Mg Tablet PO Q6H PRN Pain, Mild (Pain Scale 1-3) Atorvastatin Calcium 10 mg 06/20/20 09:00 06/21/20 07:50 Atorvastatin Calcium 10 Mg Tablet PO 10 mg DAILY FATEMEH Administration Baclofen 10 mg 06/20/20 09:00 06/21/20 07:50 Baclofen 10 Mg Tablet PO 10 mg BID FATEMEH Administration Docusate Sodium 100 mg 06/20/20 09:00 06/21/20 07:49 Docusate Sodium 100 Mg Capsule PO Not Given BID [facility] Heparin Sodium (Porcine) 5,000 unit 06/20/20 02:00 06/21/20 09:33 Heparin Sodium,Porcine 5,000 Unit/Ml Vial SUBCUT 5,000 unit Q8H FATEEMH Administration Sodium Chloride 1,000 mls @ 100 mls/hr 06/20/20 02:00 06/21/20 09:33 Ns IVCONT 100 mls/hr .Q10H FATEMEH Administration Ceftriaxone Sodium 1 gm/ 50 mls @ 100 mls/hr 06/21/20 12:00 06/21/20 12:46 Sodium Chloride IV Infused Q24H FATEM[facility] Infusion Multivitamins/Minerals 1 tab 06/20/20 09:00 06/21/20 07:49 Multivitamin With Minerals Tablet PO 1 tab DAILY FAETME[facility] Administration Pharmacy Consult 1 each 06/19/20 20:23 Consult Rx Perform Med Rec MISCELLANE ONCE PRN Consult order Pharmacy Consult 1 each 06/20/20 01:47 Consult Rx Vancomycin Dosing MISCELLANE DAILY PRN Consult order Senna 17.2 mg 06/20/20 01:49 Sennosides 8.6 Mg Tablet PO BEDTIME PRN Constipation Senna 17.2 mg 06/20/20 01:51 Sennosides 8.6 Mg Tablet PO BID PRN Constipation Sodium Chloride 3 ml 06/20/20 08:00 06/21/20 07:49 0.9 % Sodium Chloride Flush 3 Ml Syringe IVFLUSH Not Given QSHIFT [facility] Time Spent With Patient Time: Total time spent is greater than 50% in coordination of care (as documented) at patient's floor/unit and/or counseling patient: Time with patient: less than 15 minutes
--- NOTE | 2020-06-21 18:35 | PC.NURSE ---
Patient seen by wound care today, new wound care orders received to unstageable pressure injury to right lateral thigh. Dressing applied by wound care, due to be changed daily. Foams to left lateral thigh/coccyx changed. Row[place] in place, draining dark orange/red urine. Patient experiencing BLE spasms. No complaints of pain.
[2020-06-21 19:06] VITALS: BP 149/70; PULSE 66; RESP 14; TEMP 36.4; O2SAT 99
[2020-06-22] VITALS (7 sets, daily range): BP systolic 101–186; BP diastolic 55–90; PULSE 54–100; RESP 16–20; TEMP 36.4–37.2; O2SAT 93–99
[2020-06-22] MEDS: Heparin Sodium,Porcine 5,000 UNIT/ML VIAL 5000 UNIT SUBCUT (02:35)
[2020-06-22] MEDS: 0.9 % Sodium Chloride 1,000 ML 100 ML IVCONT (05:14)
[2020-06-22] MEDS: amLODIPine Besylate 5 MG TABLET PO (06:32)
[2020-06-22] MEDS: Baclofen 10 MG TABLET PO (09:55)
[2020-06-22] MEDS: Atorvastatin Calcium 10 MG TABLET PO (09:55)
[2020-06-22] MEDS: Acetaminophen 325 MG TABLET 650 MG PO (10:05)
--- NOTE | 2020-06-22 11:33 | P.DS_ITS ---
DS: Providers Provider Date of Service: 06/22/20 <Silvia Camarena NP - Last Filed: 06/22/20 11:55> 06/22/20 <Bunny Madsen MD - Last Filed: 06/22/20 13:32> Date of admission: 06/20/20 01:50 <Silvia Camarena NP - Last Filed: 06/22/20 11:55> Date of discharge: 06/22/20 <Silvia Camarena NP - Last Filed: 06/22/20 11:55> Primary care physician: Siddhartha Talamantes MD <Silvia Camarena NP - Last Filed: 06/22/20 11:55> Admitting clinician: Angelo Morley <Silvia Camarena NP - Last Filed: 06/22/20 11:55> Attending physician on admission: Angelo Morley <Silvia Camarena NP - Last Filed: 06/22/20 11:55> Consults: 06/19/20 19:56 Consult to Infectious Diseases Routine Consulting Provider: Gillian Contreras Reason for consultation: ESBL 06/20/20 01:41 Consult to Infectious Diseases Routine Consulting Provider: Gillian Contreras Reason for consultation: Decub ulcers; UTI 06/20/20 01:49 Consult to Urology Routine Consulting Provider: Russell Cunha Reason for consultation: hematuria; UTI; Renal stone; Hydroureteronephrosis 06/20/20 10:13 Consult to General Surgery Routine Consulting Provider: [facility] Reason for consultation: Right buttock open wound, drainaing, ? need for I&D 06/21/20 11:33 Consult to Wound Care Routine Consulting Provider: [facility] [facility] Management Reason for consultation: Wound Management <Silvia Camarena NP - Last Filed: 06/22/20 11:55> Attending physician on discharge: Bunny Madsen <Silvia Camarena NP - Last Filed: 06/22/20 11:55> Discharging clinician: Silvia Camarena <Silvia Camarena NP - Last Filed: 06/22/20 11:55> DS: Diagnosis Discharge Diagnosis (1) Severe sepsis: Status: Acute <Silvia Camarena NP - Last Filed: 06/22/20 11:55> (2) UTI (urinary tract infection): Status: Acute <Silvia Camarena NP - Last Filed: 06/22/20 11:55> (3) Hematuria: Status: Acute <Silvia Camarena NP - Last Filed: 06/22/20 11:55> (4) Pressure ulcer: Status: Acute <Silvia Camarena NP - Last Filed: 06/22/20 11:55> Problem details: Full thickness ischial ulcer <Silvia Camarena NP - Last Filed: 06/22/20 11:55> DS: Medications Discharge Medications Home Medications: Home Medications Medication Instructions Recorded Confirmed baclofen 10 mg PO BID 06/19/20 06/19/20 bisacodyl 10 mg PO MOWEFR 06/19/20 06/19/20 docusate sodium [Colace] 100 mg PO BID 06/19/20 06/19/20 multivitamin with minerals 1 tab PO DAILY 06/19/20 06/19/20 sennosides [senna] 17.2 mg PO BID PRN 06/19/20 06/19/20 simvastatin 20 mg PO DAILY 06/19/20 06/19/20 <Silvia Camarena NP - Last Filed: 06/22/20 11:55> DS: Summary Hospital Course Hospital Course: HP as per admitting provider 55-year-old male with a past medical history of C7 injury, paraplegic, mostly bed-bound, has history of bilateral ischial decubitus ulcers; uses condom catheter at night; history of ESBL infection; has been in the [facility] for about 6 months and recently discharged home about a month ago; has VNA services; presented to the hospital with a chief complaint of hematuria/chills and rigors. Most of the history provided by the patient, patient's sister Helena, ER staff. Reportedly this afternoon after 3:00 a.m. patient noted to have increased urinary frequency and subsequently had pinkish urine notified his sister Helena and subsequently brought to the ER for further evaluation. Patient denies any chest pain palpitations. As per the patient's sister Helena-> patient has chronic decubitus ulcers; some discharge on the right decubitus ulcer; follows with [facility]; patient was deemed nonsurgical for his ulcers at the [facility] . Severe sepsis. On admission, resolved soon after, urine culture negative, blood culture showed 1/2 coag-negative staph, likely contaminant. Treated with IV fluids and antibiotics. Urinary tract infection . Initially treated with meropenem as patient has a history of ESBL urinary tract infection however urine culture was negative although patient was treated empirically due to quadriplegia and history of urinary tract infection. Switched from meropenem to Rocephin and will be transition to Ceftin for total of 10 day treatment. Also Rowley catheter was placed while inpatient, he was seen and evaluated by Urology who recommended continue Rowley catheter however patient prefers to self cath at home as this is how he has been doing it and how he feels more comfortable. Full thickness ischial wound. Has been treated for this for an extended period of time. Does have visiting nurse services. Was seen and evaluated by the wound care team as well as General surgery. He did not require debridement, recommendation was for frequent position changes and good wound care. He will continue wound care through the visiting nurse services. I saw and examined the patient and discussed finding and management with HEATING [employer] VENTILATING [employer]RAFTER and I agree with discharge plan as outline in the discharge. Patient feels comfortable witht the discharge plan <Silvia Camarena NP - Last Filed: 06/22/20 11:55> Time Spent with Patient Time attestation: Total time spent providing and/or coordinating discharge services: <Silvia Camarena NP - Last Filed: 06/22/20 11:55> Discharge coordination time: Greater than 30 minutes <Silvia Camarena NP - Last Filed: 06/22/20 11:55> Quality: Stroke Does the patient have a stroke diagnosis?: No <Silvia Camarena NP - Last Filed: 06/22/20 11:55> Physical Exam Vital Signs: Vital Signs: Last Vital Signs Temp 98.9 F 06/22/20 08:00 Pulse 80 06/22/20 10:01 Resp 18 06/22/20 08:00 BP 112/60 06/22/20 10:01 Pulse Ox 97 06/22/20 08:00 Body Mass Index 22.9 <Silvia Camarena NP - Last Filed: 06/22/20 11:55> Appearing in no acute distress head is normocephalic atraumatic lung sounds are clear to auscultation heart regular rate rhythm, clear S1, S2 positive bowel sounds neuro patient is alert x3 , quadriplegia Skin full-thickness she wound with intact surrounding skin, no eschar, erythema, odor or purulence noted. <Silvia Camarena NP - Last Filed: 06/22 11:55> DS: Data Data Completed and Pending Labs on day of discharge: Preliminary micro results at discharge 06/19/20 20:07 Blood Culture - Preliminary Blood - Venous No growth after 48 hours. <Silvia Camarena NP - Last Filed: 06/22/20 11:55> Discharge Plan Discharge Anticipated Discharge Date/Time: 06/22/20 11:29 <Silvia Camarena NP - Last Filed: 06/22/20 11:55> Patient Disposition: Home Health Service <Silvia Camarena NP - Last Filed: 06/22/20 11:55> Discharge Diagnosis: Sepsis Urinary tract infection Hematuria Full thickness coccyx wound <Silvia Camarena NP - Last Filed: 06/22/20 11:55> Sepsis Urinary tract infection Hematuria Full thickness coccyx wound <Bunny Madsen MD - Last Filed: 06/22/20 13:32> Referrals: Siddhartha Talamantes MD [Primary Care Provider] - 1 Week <Silvia Camarena NP - Last Filed: 06/22/20 11:55> Discharge Medications: New cefuroxime axetil 250 mg tablet 250 mg PO BID 9 Days Qty: 18 RF: 0 Continued sennosides [senna] 8.6 mg Tablet 17.2 mg PO BID PRN (Reason: Constipation) RF: 0 baclofen 10 mg Tablet 10 mg PO BID RF: 0 simvastatin 20 mg Tablet 20 mg PO DAILY RF: 0 docusate sodium [Colace] 100 mg Capsule 100 mg PO BID RF: 0 multivitamin with minerals Tablet 1 tab PO DAILY RF: 0 bisacodyl 5 mg Tablet 10 mg PO MOWEFR RF: 0 <Silvia Camarena NP - Last Filed: 06/22/20 11:55> Discharge Orders: Discharge Order (Routine); Ordered 06/22/20 Ordered By: Silvia Camarena <Silvia Camarena NP - Last Filed: 06/22/20 11:55> Diet: advance to usual diet <Silvia Camarena NP - Last Filed: 06/22/20 11:55> advance to usual diet <Bunny Madsen MD - Last Filed: 06/22/20 13:32> Activity on Discharge: As tolerated <Silvia Camarena NP - Last Filed: 06/22/20 11:55> As tolerated <Bunny Madsen MD - Last Filed: 06/22/20 13:32> Stand Alone Forms: Patient Portal Discharge page <Silvia Camarena NP - Last Filed: 06/22/20 11:55> Care Plan Goals: Resolution of full-thickness coccyx wound Continue straight catheterization for urine at home <Silvia Camarena NP - Last Filed: 06/22/20 11:55> Health Concerns: Sepsis Urinary tract infection Hematuria Full thickness coccyx wound <Silvia Camarena NP - Last Filed: 06/22/20 11:55> Plan of Treatment: Follow-up with primary care provider as needed You have been given a prescription for an antibiotic to complete for the next 9 days, please take as prescribed. <Silvia Camarena NP - Last Filed: 06/22/20 11:55> Assessment: See discharge summary <Silvia Camarena NP - Last Filed: 06/22/20 11:55>
[2020-06-22] MEDS: cefTRIAXone sodium 1 GM in 0.9 % Sodium Chloride 50 ML IV (12:21)
[2020-06-22] MEDS: bisacodyL 10 MG SUPP.RECT PR (12:21)
--- NOTE | 2020-06-22 13:06 | MHC.CM.PN ---
[facility] AT [facility] ([phone]) IS ARRANGING [facility] TO TRANSPORT PATIENT HOME TONIGHT. TIME WILL BE SCHEDULED FOR APPROXIMATELY 1700. RN, PATIENT, AND HOSPITALIST AWARE. CARE TENDERS VNA MADE AWARE.
== END 2020-06-22 17:05 | disposition home health service (06) | DRG 872 ==
LOC: HO.ED 06-20 01:33 → HO.EDOVER 06-20 02:10 → HO.S3 06-20 02:38
PROVIDERS: Family Medicine; Admitting Provider Hospitalist; Emergency Provider Internal Medicine; PCP General Practice; Visit Provider Nurse Practitioner Acute Care
DX: A41.9 Sepsis, unspecified organism (principal); G82.20 Paraplegia, unspecified; N39.0 Urinary tract infection, site not specified; R31.0 Gross hematuria; R65.20 Severe sepsis without septic shock; R33.9 Retention of urine, unspecified; L89.322 Pressure ulcer of left buttock, stage 2; Z20.822 Contact with and (suspected) exposure to COVID-19; Z87.440 Personal history of urinary (tract) infections; Z87.891 Personal history of nicotine dependence; Z79.899 Other long term (current) drug therapy
CPT/HCPCS: 36415; 71045; 74177; 80048; 80076; 80202; 81001; 83605; 85025; 85027; 85610; 87040; 87086; 87205; 87635; 96365; 96367; 96368; 99285; C1758; J0696; J1335; J2185; J3370; Q9967

== ENCOUNTER 2021-12-08 14:27 | Outpatient (RCR) | payer OTHER, SELFPAY | END 2021-12-08 15:00 | disposition home or self-care (01) | LOC: HO.WCC 14:27 | PROVIDERS: PCP Nurse Practitioner Family; Visit Provider Physician Assistant | DX: Z09 Encounter for follow-up examination after completed treatment for conditions other than malignant neoplasm (principal) ==

== ENCOUNTER 2022-02-27 13:34 | Inpatient (IN) | payer OTHER, SELFPAY ==
--- NOTE | ~2022-02-27 | CT_ITS ---
EXAMINATION: CT ABDOMEN AND PELVIS WITHOUT CONTRAST CLINICAL INFORMATION: Left CVA tenderness. History of paraplegia. COMPARISON: CT abdomen/pelvis from 06/20/2020 TECHNIQUE: Multidetector volumetric imaging was performed from the superior aspect of the liver through the pubic symphysis. Sagittal and coronal reformatted images were obtained on the technologist's workstation. This CT examination was performed using dose optimization techniques as appropriate, variously including the following: *Automated exposure control *Adjustment of mA and/or kV according to patient size (this includes techniques or standardized protocols for targeted exams where dose is matched to indication/reason for exam; i.e. extremities or head) *Use of iterative reconstruction technique DLP: 553 mGy-cm FINDINGS: LUNG BASES: There are old calcified granulomas in each lower lobe. No pulmonary consolidation or pleural effusion. LIVER: The liver has normal size, shape, and attenuation. No evidence of liver mass. GALLBLADDER AND BILIARY TREE: Gallbladder is without radiopaque stones, wall thickening or pericholecystic fluid. No dilated bile ducts. PANCREAS: Normal. No edema, pancreatic ductal dilatation or mass. SPLEEN: Mildly enlarged spleen measures up to 13.5 cm maximum dimension. ADRENAL GLANDS: Normal. KIDNEYS AND URETERS: Kidneys have normal size and cortical attenuation. No hydronephrosis or perinephric fluid collection. There is a 0.2 cm calyceal stone of the mid left kidney (image 268, series 4). There appears to be a punctate calyceal stone of the mid right kidney (image 284, series 4). No large renal stones. No evidence of ureterolithiasis or hydroureter. BLADDER: The urinary bladder wall is severely, diffusely thickened and there is perivesical edema and mild free fluid of the pelvis. No pelvic abscess. These abnormalities are similar in appearance compared to 06/20/2020. No evidence of bladder calculi. BOWEL AND PERITONEUM: No dilated bowel loops. The appendix is normal. No focal bowel wall thickening. Moderate amount of fecal material is present within the rectum. ABDOMINAL WALL: Unremarkable. VASCULATURE: Mild atherosclerosis of the abdominal aorta without aneurysm. LYMPH NODES: No retroperitoneal lymphadenopathy. Small likely reactive iliac lymph nodes measure up to 0.8 cm short axis dimension. PELVIC VISCERA: Prostate gland measures approximately 4.6 x 3.5 x 4 cm. MUSCULOSKELETAL: There is an old deep wound surrounded by thickened tissue (likely inflammatory/granulation tissue) extending to the surface of the chronically eroded, sclerotic, irregular right ischium. Findings are consistent with chronic osteomyelitis. CT/CT abdomen pelvis wo IV con IMPRESSION: * In this patient with history of paraplegia, the urinary bladder wall is chronically thickened and there is severe perivesical edema and mild volume free fluid in the pelvis. Findings are suggestive of severe cystitis. * Small renal stones are noted. No evidence of hydroureter or hydronephrosis. * There is an old deep soft tissue ulcer with wound extending to the surface of the chronically eroded, irregular, sclerotic right ischium. 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
[2022-02-27 13:48] VITALS: BP 110/70; BP 132/94; PULSE 85; PULSE 99; RESP 18; TEMP 36.7; O2SAT 96; O2SAT 97; BMI 26.6
[2022-02-27 15:14] LABS: MANUAL DIFF FLAG NO
[2022-02-27 15:23] LABS: Basophils Absolute Auto 0.1 X10*3/uL (0.0-0.2); Basophils Percent Auto 0.2 % (0-2); Eosinophils Absolute Auto 0.1 X10*3/uL (0.0-0.4); Eosinophils Percent Auto 0.4 % (0-4); Hematocrit 42.5 % (42.0-52.0); Hemoglobin 14.4 g/dl (14.0-18.0); Imm Gran Abs Auto 0.12 X10*3/uL (0.00-0.03); Imm Gran Pct Auto 0.6 % (0.0-0.4); Lymphocytes Absolute Auto 1.1 X10*3/uL (1.2-4.9); Lymphocytes Percent Auto 5.5 % (20-40); Mean Corpuscular HGB Conc 33.9 g/dl (31.0-36.0); Mean Corpuscular Hemoglobin 27.6 pg (27.0-33.0); Mean Corpuscular Volume 81.6 fL (80.0-98.0); Monocytes Absolute Auto 1.2 X10*3/uL (0.1-1.2); Monocytes Percent Auto 5.9 % (2-11); Neutrophils Absolute Auto 17.6 x10*3/uL (2.0-8.3); Neutrophils Percent Auto 87.4 % (45-73); Platelet Count 302 X10*3/uL (160-400); Red Blood Count 5.21 X10*6/uL (4.60-5.80); Red Cell Distribution Width 14.9 % (11.0-16.0); White Blood Count 20.2 X10*3/uL (4.8-10.8)
[2022-02-27 15:34] LABS: Alanine Aminotransferase 12 U/L (0-40); Albumin Level 3.6 g/dL (3.5-5.0); Alkaline Phosphatase 64 U/L (39-117); Anion Gap 15 (12-20); Aspartate Amino Transferase 15 U/L (5-37); Bilirubin Direct 0.2 mg/dL (0.0-0.5); Bilirubin Total 0.7 mg/dL (0.0-1.0); Blood Urea Nitrogen 16 mg/dL (9-16); Calcium 8.9 mg/dL (8.4-10.2); Carbon Dioxide 24 mmol/L (22-29); Chloride 105 mmol/L (96-108); Creatinine Clr Calc Pharmacy 84.3; Estimated Glomerular Filt Rate > 60; Glucose Random 145 mg/dL (60-115); Lipase 44 U/L (8-78); Potassium 4.6 mmol/L (3.3-5.1); Sodium 139 mmol/L (135-145); Total Protein 7.3 g/dL (6.5-8.0)
--- NOTE | 2022-02-27 15:50 | ED_ITS ---
HPI - General Adult General Chief complaint: General Medical <Nannette Avilez JOY Lopez - Last Filed: 02/28/22 10:53> Stated complaint: DYSURIA <Nannette Avilez JOY Lopez - Last Filed: 02/28/22 10:53> Time Seen by Provider: 02/27/22 15:24 <Nannette Avilez JOY Lopez - Last Filed: 02/28/22 10:53> Source: patient <Nannette LopezJOY - Last Filed: 02/28/22 10:53> Mode of arrival: EMS <Nannette Avilez JOY Lopez - Last Filed: 02/28/22 10:53> Limitations: no limitations <Nannette Avilez JOY Lopez - Last Filed: 02/28/22 10:53> History of Present Illness HPI narrative: Patient is a 56-year-old male presents to emergency department EMS for evaluation hematuria, nausea, lack of appetitie, weakness/ fatigue. Patient reports that he has an external catheter in place, yesterday evening he noticed bright red blood to be present, that has continued throughout today. He states that he does self performed straight catheterization twice daily. Patient reports history of urinary tract infection, but none in the recent past. Patient is a paraplegic from C7 injury 20 years ago. Denies abdominal pain, nausea, vomiting, fevers, chills, chest pain, shortness of breath. <Nannette Fatmatamary Lopez CNP - Last Filed: 02/28/22 10:53> Related Data Home medications: Home Medications Medication Instructions Recorded Confirmed baclofen 10 mg tablet 10 mg PO BID 06/19/20 02/27/22 multivitamin with minerals 1 tab PO DAILY 06/19/20 02/27/22 sennosides 8.6 mg tablet (senna) 17.2 mg PO BID PRN Constipation 06/19/20 02/27/22 simvastatin 20 mg tablet 20 mg PO DAILY 06/19/20 02/27/22 Previous Rx's Medication Instructions Recorded cefuroxime axetil 250 mg tablet 250 mg PO BID 10 days #20 tabs 03/02/22 <Nannette Lopez CNP - Last Filed: 02/28/22 10:53> Allergies/adverse reactions: Allergies Allergy/AdvReac Type Severity Reaction Status Date / Time No Known Allergies Allergy Verified 03/02/22 08:42 [No Known Allergies*] <Nannette Avilez JOY Lopez - Last Filed: 02/28/22 10:53> Review of Systems Review of Systems: Constitutional: No weight loss, fever, chills, weakness or fatigue. Skin: No rash or itching. Cardiovascular: No chest pain, chest pressure or chest discomfort. No palpitations or pedal edema. Respiratory: No shortness of breath, cough or sputum production. Gastrointestinal: No anorexia, nausea, vomiting or diarrhea. No abdominal pain or blood in stool. Genitourinary: No burning micturition. Positive hematuria Musculoskeletal: No muscle pain or back pain Psychiatric: No depression or anxiety. <Nannette Fatmatamary Lopez CNP - Last Filed: 02/28/22 10:53> Yes all other systems are reviewed and are negative <Nannette Marie JOY Lopez - Last Filed: 02/28/22 10:53> [facility] Past Medical History Attestation statement: The following information was validated with the patient. <Nannette Fatmatamary Lopez CNP - Last Filed: 02/28/22 10:53> Source: old records reviewed <Nannette Fatmata JOY Lopez - Last Filed: 02/28/22 10:53> Medical History: Medical History C7 spinal cord injury Decubitus ulcer of buttock, stage 2 Paralysis Paraplegia Urinary retention <Nannette Fatmatamary Lopez CNP - Last Filed: 02/28/22 10:53> Social History Social History: Social History Household Members: None Housing: House Do you presently have visiting nurse or other home services: Yes ([employer] Wednesday, Wednesday, Wednesday) Patient Tobacco Use Status: Never used Tobacco Substance Use Type: Marijuana service: Yes Current occupational status: retired and disabled <Nannette Lopez CNP - Last Filed: 02/28/22 10:53> Physical Exam ED Vital Signs: Vital Signs - 24 hr 02/27/22 13:48 Temperature 98.1 F Pulse Rate 85 Respiratory Rate 18 Blood Pressure 110/70 Pulse Oximetry 97 Oxygen Delivery Method Room Air BMI result Body Mass Index 26.6 <Nannette Lopez CNP - Last Filed: 02/28/22 10:53> Vital Signs - 24 hr 02/27/22 13:48 Temperature 98.1 F Pulse Rate 85 Respiratory Rate 18 Blood Pressure 110/70 Pulse Oximetry 97 Oxygen Delivery Method Room Air BMI result Body Mass Index 26.6 <Francisco Hendesron MD - Last Filed: 03/09/22 18:42> Appearance: Alert.?Oriented to person, place and time. No acute distress.?Normal affect. Eyes: Pupils equal, round and reactive to light.? ENT: Pharynx normal.?? Neck: Normal inspection.? Neck supple.?? CVS: Heart sounds normal. Normal heart rate and rhythm.? Pulses normal.?? Respiratory: No respiratory distress.? Lung sounds clear to auscultation bilaterally?? Abdomen: Soft with left lower ABD tenderness, mild CVA tenderness on left. Normoactive bowel sounds. Skin: Skin warm and dry.? Normal skin color.? Extremities: No lower extremity edema.? Neuro: Moves all extremities spontaneously. Sensation intact bilaterally. No focal neuro deficits. <Nannette Lopez CNP - Last Filed: 02/28/22 10:53> Course Reevaluation(s) Reevaluation #1: CBC reveals leukocytosis of 20.2 with left shift, no anemia. CMP is unremarkable. Spoke with nursing staff, entered orders for straight catheterization to obtain urinalysis, CT of the abdomen and pelvis are pending. Will obtain blood cultures and lactic acid. <Nannette Lopez CNP - Last Filed: 02/28/22 10:53> Time: 15:10 <Nannette Lopez CNP - Last Filed: 02/28/22 10:53> Reevaluation #2: Lactic acid is elevated at 2.6 without evidence of sepsis at this time, patient received 1 L normal saline IV fluid, in addition urinalysis consistent with urinary tract infection, hematuria present, pyuria, positive nitrates, 3+ urine bacteria, at this time IV antibiotics ordered. CT pending. <Nannette Lopez CNP - Last Filed: 02/28/22 10:53> Time: 16:42 <Nannette Lopez CNP - Last Filed: 02/28/22 10:53> Reevaluation #3: CT findings with bladder wall thickening and severe perivesical edema suggestive of severe cystitis. Discussed finding with patient. Recommend hospital admission for IV antibiotics. Patient agreeable to plan of care. Spoke with hospitalist Dr. Madsen, who accepts patient for admission to medicine service. <Nannette Lopez CNP - Last Filed: 02/28/22 10:53> Time: 17:40 <Nannette Lopez CNP - Last Filed: 02/28/22 10:53> Medications Administered Discontinued Medications Generic Name Dose Route Start Last Admin Trade Name Freq PRN Reason Stop Dose Admin Enoxaparin Sodium 40 mg 02/27/22 20:00 02/27/22 19:47 Enoxaparin Sodium 40 Mg/0.4 Ml Syringe SUBCUT 40 mg Q24H FATEMEH Administration Ceftriaxone Sodium 1 gm/ 50 mls @ 100 mls/hr 02/27/22 16:40 02/27/22 17:27 Sodium Chloride IV 02/27/22 17:09 Infused ONCE ONE Infusion Sodium Chloride 1,000 mls @ 999 mls/hr 02/27/22 16:45 02/27/22 17:58 Ns IV 02/27/22 17:45 Infused .Q1H1M FATEMEH Infusion Meropenem 1 gm/ Sodium 100 mls @ 200 mls/hr 02/27/22 20:00 03/02/22 03:53 Chloride IV Infused Q8H FATEMEH Infusion Ceftriaxone Sodium 1 gm/ 50 mls @ 100 mls/hr 03/02/22 07:15 03/02/22 08:16 Sodium Chloride IV Infused Q24H FATEMEH Infusion Sodium Chloride 3 ml 02/28/22 00:00 03/02/22 17:14 0.9 % Sodium Chloride Flush 3 Ml Syringe IVFLUSH Not Given QSHIFT FATEMEH <Nannette Lopez CNP - Last Filed: 02/28/22 10:53> Medications Administered Discontinued Medications Generic Name Dose Route Start Last Admin Trade Name Freq PRN Reason Stop Dose Admin Enoxaparin Sodium 40 mg 02/27/22 20:00 02/27/22 19:47 Enoxaparin Sodium 40 Mg/0.4 Ml Syringe SUBCUT 40 mg Q24H FATEMEH Administration Ceftriaxone Sodium 1 gm/ 50 mls @ 100 mls/hr 02/27/22 16:40 02/27/22 17:27 Sodium Chloride IV 02/27/22 17:09 Infused ONCE ONE Infusion Sodium Chloride 1,000 mls @ 999 mls/hr 02/27/22 16:45 02/27/22 17:58 Ns IV 02/27/22 17:45 Infused .Q1H1M FATEMEH Infusion Meropenem 1 gm/ Sodium 100 mls @ 200 mls/hr 02/27/22 20:00 03/02/22 03:53 Chloride IV Infused Q8H FATEMEH Infusion Ceftriaxone Sodium 1 gm/ 50 mls @ 100 mls/hr 03/02/22 07:15 03/02/22 08:16 Sodium Chloride IV Infused Q24H FATEMEH Infusion Sodium Chloride 3 ml 02/28/22 00:00 03/02/22 17:14 0.9 % Sodium Chloride Flush 3 Ml Syringe IVFLUSH Not Given QSHIFT FATEMEH <Francisco Henderson MD - Last Filed: 03/09/22 18:42> Medical Decision Making Medical Decision Making MDM Narrative: Patient is a 56-year-old male with past medical history of C7 spinal cord injury, paraplegia, paralysis, urinary retention, history of ESBL infection in 2015, presenting to emergency department for evaluation of gross hematuria. Overall he is well-appearing, afebrile without tachycardia, tachypnea, or hypoxia. External catheter in place, dark colored urine present in drainage bag, no sherrell hematuria noted. She does have mild tenderness to the left CVA/left abdomen upon palpation. Upon physical examination, patient noted to have Pressure ulcer to right ischial decubitus ulcer, appears deep with obvious tunneling, he reports this is chronic and [facility], no purulent drainage, surrounding skin is pink and dry, does not appear to be acutely infected, no surrounding cellulitis, states not currently on antibiotics. Will obtain CBC, CMP, urinalysis via straight catheterization, CT of the abdomen and pelvis. <Nannette Lopez CNP - Last Filed: 02/28/22 10:53> Differential Diagnosis Differential Diagnoses: The differential diagnosis associated with the presentation includes (Urinary tract infection, pyelonephritis, nephrolithiasis, hydronephrosis) <Nannette Lopez CNP - Last Filed: 02/28/22 10:53> Admission/Observation Consideration of admission/observation: Escalation of care including admission/observation considered (as noted in course) <Nannettedm Lopez CNP - Last Filed: 02/28/22 10:53> Consult Healthcare Provider Management of the patient was discussed with: Hospitalist <Nannette Lopez CNP - Last Filed: 02/28/22 10:53> Lab Data MDM Lab Attestation statement: I reviewed the patient's lab results. <Nanntetedm Lopez CNP - Last Filed: 02/28/22 10:53> Result Diagrams: 02/27/22 15:11 02/27/22 15:10 <Nannette Lopez CNP - Last Filed: 02/28/22 10:53> Labs: Lab Results 02/27/22 02/27/22 02/27/22 Range/Units 15:10 15:11 15:49 WBC 20.2 H (4.8-10.8) X10*3/uL RBC 5.21 (4.60-5.80) X10*6/uL Hgb 14.4 (14.0-18.0) g/dl Hct 42.5 (42.0-52.0) % MCV 81.6 (80.0-98.0) fL MCH 27.6 (27.0-33.0) pg MCHC 33.9 (31.0-36.0) g/dl RDW 14.9 (11.0-16.0) % Plt Count 302 (160-400) X10*3/uL MPV 9.0 L (9.4-12.4) fL Immature Gran % (Auto) 0.6 H (0.0-0.4) % Neut % (Auto) 87.4 H (45-73) % Lymph % (Auto) 5.5 L (20-40) % [place] % (Auto) 5.9 (2-11) % Eos % (Auto) 0.4 (0-4) % Baso % (Auto) 0.2 (0-2) % Lymph # (Auto) 1.1 L (1.2-4.9) X10*3/uL [place] # (Auto) 1.2 (0.1-1.2) X10*3/uL Eos # (Auto) 0.1 (0.0-0.4) X10*3/uL Baso # (Auto) 0.1 (0.0-0.2) X10*3/uL Abs Immat Gran (auto) 0.12 H (0.00-0.03) X10*3/uL Absolute Neuts (auto) 17.6 H (2.0-8.3) x10*3/uL Absolute Nucleated RBC 0.000 (0.0-0.012) X10*3/uL Nucleated RBC % (auto) 0.0 (0.0-0.2) /100WBC Sodium 139 (135-145) mmol/L Potassium 4.6 D (3.3-5.1) mmol/L Chloride 105 (96-108) mmol/L Carbon Dioxide 24 (22-29) mmol/L Anion Gap 15 (12-20) BUN 16 (9-16) mg/dL Creatinine 1.01 (0.5-1.4) mg/dL Estim Creat Clear Calc 84.3 Estimated GFR > 60 Random Glucose 145 H (60-115) mg/dL Lactic Acid 2.6 H* (0.5-2.0) mmol/L Calcium 8.9 D (8.4-10.2) mg/dL Total Bilirubin 0.7 (0.0-1.0) mg/dL Direct Bilirubin 0.2 (0.0-0.5) mg/dL AST 15 (5-37) U/L ALT 12 (0-40) U/L Alkaline Phosphatase 64 (39-117) U/L Total Protein 7.3 (6.5-8.0) g/dL Albumin 3.6 (3.5-5.0) g/dL Lipase 44 (8-78) U/L <Nannette Lopez, JOY - Last Filed: 02/28/22 10:53> Lab Results 02/27/22 02/27/22 02/27/22 Range/Units 15:10 15:11 15:49 WBC 20.2 H (4.8-10.8) X10*3/uL RBC 5.21 (4.60-5.80) X10*6/uL Hgb 14.4 (14.0-18.0) g/dl Hct 42.5 (42.0-52.0) % MCV 81.6 (80.0-98.0) fL MCH 27.6 (27.0-33.0) pg MCHC 33.9 (31.0-36.0) g/dl RDW 14.9 (11.0-16.0) % Plt Count 302 (160-400) X10*3/uL MPV 9.0 L (9.4-12.4) fL Immature Gran % (Auto) 0.6 H (0.0-0.4) % Neut % (Auto) 87.4 H (45-73) % Lymph % (Auto) 5.5 L (20-40) % [place] % (Auto) 5.9 (2-11) % Eos % (Auto) 0.4 (0-4) % Baso % (Auto) 0.2 (0-2) % Lymph # (Auto) 1.1 L (1.2-4.9) X10*3/uL [place] # (Auto) 1.2 (0.1-1.2) X10*3/uL Eos # (Auto) 0.1 (0.0-0.4) X10*3/uL Baso # (Auto) 0.1 (0.0-0.2) X10*3/uL Abs Immat Gran (auto) 0.12 H (0.00-0.03) X10*3/uL Absolute Neuts (auto) 17.6 H (2.0-8.3) x10*3/uL Absolute Nucleated RBC 0.000 (0.0-0.012) X10*3/uL Nucleated RBC % (auto) 0.0 (0.0-0.2) /100WBC Sodium 139 (135-145) mmol/L Potassium 4.6 D (3.3-5.1) mmol/L Chloride 105 (96-108) mmol/L Carbon Dioxide 24 (22-29) mmol/L Anion Gap 15 (12-20) BUN 16 (9-16) mg/dL Creatinine 1.01 (0.5-1.4) mg/dL Estim Creat Clear Calc 84.3 Estimated GFR > 60 Random Glucose 145 H (60-115) mg/dL Lactic Acid 2.6 H* (0.5-2.0) mmol/L Calcium 8.9 D (8.4-10.2) mg/dL Total Bilirubin 0.7 (0.0-1.0) mg/dL Direct Bilirubin 0.2 (0.0-0.5) mg/dL AST 15 (5-37) U/L ALT 12 (0-40) U/L Alkaline Phosphatase 64 (39-117) U/L Total Protein 7.3 (6.5-8.0) g/dL Albumin 3.6 (3.5-5.0) g/dL Lipase 44 (8-78) U/L <Francisco Henderson MD - Last Filed: 03/09/22 18:42> Radiology Impression Discussion of test interpretation with radiology: I have reviewed the radiologist's reading. <Nannette Lopez CNP - Last Filed: 02/28/22 10:53> Radiologist Impression: CT/CT abdomen pelvis wo IV con IMPRESSION: *? In this patient with history of paraplegia, the urinary bladder wall is chronically thickened and there is severe perivesical edema and mild volume free fluid in the pelvis. Findings are suggestive of severe cystitis. *? Small renal stones are noted. No evidence of hydroureter or hydronephrosis. *? There is an old deep soft tissue ulcer with wound extending to the surface of the chronically eroded, irregular, sclerotic right ischium. 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 ? <Nannette Lopez CNP - Last Filed: 02/28/22 10:53> Attestation Attending Attestation: Her review the documentation in chart for this patient and was seen primarily by the nurse practitioner/PA. I agree with the assessment and plan. <Francisco Henderson MD - Last Filed: 03/09/22 18:42> Discharge Plan Discharge Clinical Impression: Urinary tract infection, Decubitus ulcer, Acidosis, lactic <Nannette Lopez CNP - Last Filed: 02/28/22 10:53> Patient Disposition: Admitted As Inpatient <Nannette Lopez CNP - Last Filed: 02/28/22 10:53> Interventions: Admission Worksheet (ED) Last Done: 02/27/22 22:32 <Nannette Lopez CNP - Last Filed: 02/28/22 10:53> Discharge Date/Time: 02/27/22 22:38 <Nannette Lopez CNP - Last Filed: 02/28/22 10:53>
[2022-02-27 16:19] LABS: Appearance Urine Cloudy; Color Urine BROWN; Glucose Urine UA 100 mg/dL (Negative); Leukocyte Esterase Urine Moderate (2+) (Negative); Nitrite Urine Positive (Negative); PH 6.5 (5.0-9.0); Specific Gravity - Urine 1.025 (1.005-1.025); UMIC TRIGGER UACC YES; Urine Blood Large (3+) (Negative); Urine Ketones 15 mg/dL (Negative); Urine Protein 300 (3+) mg/dL (Neg-Trace)
[2022-02-27 16:28] LABS: Bacteria Urine 3+ (None Seen); Hyaline Casts Urine 0-2 /LPF (0-2); RBC Urine >20 /HPF (0-2); UACC Culture Trigger YES; WBC Urine 21-50 /HPF (0-5)
[2022-02-27 16:31] LABS: Lactic Acid 2.6 mmol/L (0.5-2.0)
[2022-02-27] MEDS: cefTRIAXone sodium 1 GM in 0.9 % Sodium Chloride 50 ML IV (16:57)
[2022-02-27] MEDS: 0.9 % Sodium Chloride 1,000 ML 999 ML IV (16:57)
[2022-02-27 17:56] LABS: Reflex Lactate? Lactic Acid Added
--- NOTE | 2022-02-27 18:07 | PM.IMHP ---
History of Present Illness Date of Service: 02/27/22 Attending physician on admission: [facility] Chief Complaint: Gross hematuria Pt is a 56-year-old male with a PMH significant for?C7 injury, paraplegic, mostly bed-bound, history of full-thickness ischial decubitus ulcer, uses condom catheter at night, and history of ESBL infection who presents to the ED with gross hematuria since yesterday. Pt performs self-catheterization with a [place] catheter twice a day, and yesterday noticed that there was bright red blood. Patient also noted yesterday that he had chills, nausea but no vomiting, anorexia, and weakness/fatigue. Of note patient has a past history of ESBL+ infection, and a history of complicated cystitis with his last hospitalization being in 06/2020. Patient denies chest pain/pressure. No shortness of breath. Denies abdominal pain. In the ED patient was afebrile with pulse of 85 and RR of 18. Labs were significant for WBC of 20.2, random glucose of 145, lactic acid of 2.6 with repeat pending. UA positive for UTI. CT?of abdomen and pelvis showed chronically thickened urinary bladder wall with severe perivesical edema and mild volume of free fluid in the pelvis, suggestive of severe cystitis. Also noted renal stones no evidence of hydroureter hydronephrosis and chronic findings of deep soft tissue ulcer consistent with chronic osteomyelitis of the ischium. Pt was treated with IVF and ceftriaxone. Pt will be admitted to the hospital for treatment of severe cystitis with IV ABX. Review of Systems Review of Systems: Gross hematuria Nausea, Chills Anorexia, weakness/fatigue No chest pain/pressure Or shortness of breath Yes all other systems are reviewed and are negative [facility] Medical History C7 spinal cord injury Decubitus ulcer of buttock, stage 2 Paralysis Paraplegia Urinary retention Social History Household Members: None Housing: Apartment Do you presently have visiting nurse or other home services: Yes Smoked in Last 30 Days: No Use of substances other than those prescribed or required for medical reasons: No Substance Use Type: Marijuana Advance Directives: No service: Yes Current occupational status: retired and disabled Meds Allergies Allergy/AdvReac Type Severity Reaction Status Date / Time No Known Allergies Allergy Unverified 10/26/19 19:31 [No Known Allergies*] Home Medications Medication Instructions Recorded Confirmed Last Taken Type baclofen 10 mg tablet 10 mg PO BID 06/19/20 06/19/20 06/19/20 History bisacodyl 5 mg tablet 10 mg PO MOWEFR 06/19/20 06/19/20 Unknown History docusate sodium 100 mg capsule 100 mg PO BID 06/19/20 06/19/20 Unknown History (Colace) multivitamin with minerals 1 tab PO DAILY 06/19/20 06/19/20 Unknown History sennosides 8.6 mg tablet (senna) 17.2 mg PO BID PRN Constipation 06/19/20 06/19/20 Unknown History simvastatin 20 mg tablet 20 mg PO DAILY 06/19/20 06/19/20 06/19/20 History Physical Exam Vital Signs and Narrative: Vital Signs: Last Vital Signs Temp 98.1 F 02/27/22 13:48 Pulse 85 02/27/22 13:48 Resp 18 02/27/22 13:48 BP 110/70 02/27/22 13:48 Pulse Ox 97 02/27/22 13:48 O2 Del Method 02/27/22 13:48 BMI result Body Mass Index 26.6 Constitutional: Alert, in no acute distress. Mental Status: Oriented to person, place and time. Eyes: Pupils are equal, round, and reactive to light. Ear, Nose, and Throat: Oropharynx clear, mucous membranes moist. Ears and nose without deformities. Trachea midline. Respiratory: Clear to auscultation bilaterally. No wheezing, rales, or rhonchi. Cardiovascular: S1, S2 regular. No murmurs, rubs, or gallops. Gastrointestinal: Abdomen soft, non-tender, non-distended. Normal bowel sounds. Neurologic: Cranial nerves II-XI are grossly intact. No focal neurological deficits. Moves all extremities spontaneously. Skin: Full-thickness ischial wound on right side. Non-erythematous, no discharge. Musculoskeletal: No cyanosis or clubbing. Extremities: No edema. Psychiatric: Normal mood and affect. Results Labs 02/27/22 15:11 02/27/22 15:10 Labs: Laboratory Results - last 24 hr 02/27/22 02/27/22 02/27/22 15:10 15:11 15:49 MCV 81.6 MCH 27.6 MCHC 33.9 RDW 14.9 Plt Count 302 MPV 9.0 L Immature Gran % (Auto) 0.6 H Neut % (Auto) 87.4 H Lymph % (Auto) 5.5 L [place] % (Auto) 5.9 Eos % (Auto) 0.4 Baso % (Auto) 0.2 Lymph # (Auto) 1.1 L [place] # (Auto) 1.2 Eos # (Auto) 0.1 Baso # (Auto) 0.1 Abs Immat Gran (auto) 0.12 H Absolute Neuts (auto) 17.6 H Absolute Nucleated RBC 0.000 Nucleated RBC % (auto) 0.0 Anion Gap 15 Estim Creat Clear Calc 84.3 Estimated GFR > 60 Random Glucose 145 H Lactic Acid 2.6 H* Calcium 8.9 D Total Bilirubin 0.7 Direct Bilirubin 0.2 AST 15 ALT 12 Alkaline Phosphatase 64 Total Protein 7.3 Albumin 3.6 Lipase 44 Urine Color Urine Appearance Urine pH Ur Specific [place] Urine Protein Urine Glucose (UA) Urine Ketones Urine Blood Urine Nitrite Ur Leukocyte Esterase Urine RBC Urine WBC Ur Squamous Epith Cells Urine Bacteria Hyaline Casts 02/27/22 Unknown MCV MCH MCHC RDW Plt Count MPV Immature Gran % (Auto) Neut % (Auto) Lymph % (Auto) [place] % (Auto) Eos % (Auto) Baso % (Auto) Lymph # (Auto) [place] # (Auto) Eos # (Auto) Baso # (Auto) Abs Immat Gran (auto) Absolute Neuts (auto) Absolute Nucleated RBC Nucleated RBC % (auto) Anion Gap Estim Creat Clear Calc Estimated GFR Random Glucose Lactic Acid Calcium Total Bilirubin Direct Bilirubin AST ALT Alkaline Phosphatase Total Protein Albumin Lipase Urine Color BROWN Urine Appearance Cloudy Urine pH 6.5 Ur Specific [place] 1.025 Urine Protein 300 (3+) H Urine Glucose (UA) 100 H Urine Ketones 15 Urine Blood Large (3+) H Urine Nitrite Positive H Ur Leukocyte Esterase Moderate (2+) H Urine RBC >20 H Urine WBC 21-50 Ur Squamous Epith Cells 11-20 Urine Bacteria 3+ Hyaline Casts 0-2 Imaging Radiologist's Impressions: Impressions Abdomen/Pelvis CT 02/27/22 16:35 IMPRESSION: * In this patient with history of paraplegia, the urinary bladder wall is chronically thickened and there is severe perivesical edema and mild volume free fluid in the pelvis. Findings are suggestive of severe cystitis. * Small renal stones are noted. No evidence of hydroureter or hydronephrosis. * There is an old deep soft tissue ulcer with wound extending to the surface of the chronically eroded, irregular, sclerotic right ischium. 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 Assessment and Plan (1) UTI (urinary tract infection): Status: Acute (2) Pressure ulcer: Status: Acute Plan Pt is a 56-year-old male with a PMH significant for?C7 injury, paraplegic, mostly bed-bound, history of full-thickness ischial decubitus ulcer, uses condom catheter at night, and history of ESBL infection who presents to the ED with gross hematuria since yesterday. Pt will be admitted to the hospital for treatment of severe cystitis with IV ABX. Acute severe cystitis Gross hematuria since yesterday, patient with history of ESBL infection Meropenem 1g IV q8 ID consult Nephrology consult Acute lactic acidosis Type 1, not due to sepsis Full-thickness right ischial decubitus ulcer, chronic Does not currently appear infected or need debridement Position changes q2h Wound care consult Full Code Attending:?Dr. Madsen DVT Prophylaxis: Lovenox Pt will require a hospitalization of at least two nights for treatment of severe cystitis with IV abx. Time Spent With Patient Time: Total time managing care of this patient today ____ minutes. Quality Stroke Does the patient have a stroke diagnosis?: No VTE Prior VTE?: No VTE Risk Level:: Medical - moderate - high VTE Device Contraindication: Treatment Not Indicated VTE Drug Contraindication: N/A - Med Ordered
--- NOTE | 2022-02-27 19:17 | MHC.CM.PN ---
Addendum entered by Milla Freedman 02/27/22 20:28: Pt sleeping with blankets over head. Original Note: Attempted to meet with patient, sleeping soundly with blankets over head. Will meet for d/c planning when patient wakes. Pt admitted with bed assignment pending. Has [employer] insurance.
[2022-02-27 19:20] LABS: ~Lactic Acid-LAB USE ONLY 2.1 mmol/L (0.5-2.0)
[2022-02-27 19:33] VITALS: BP 127/70; PULSE 93; RESP 16; TEMP 36.8; O2SAT 95
[2022-02-27] MEDS: Enoxaparin Sodium 40 MG/0.4 ML SYRINGE SUBCUT (19:47)
--- NOTE | 2022-02-27 19:53 | PC.NURSE ---
This senior mortgage underwriter assumed care of this PT at 1900. PT A&Ox3, reports chronic bilateral shoulder pain. Critical lactic of 2.1 reported. Provider notified. Meds given as documented. PO fluids tolerated. Condom catheter in place draining clear mariela color.
--- NOTE | 2022-02-27 19:53 | PHA.MEDREC ---
Pharmacy Consult ? Medication Reconciliation Pharmacy has completed the medication reconciliation. Patient gets meds from [facility], faxed med list request but have not received a response. Spoke to pt at bedside who says he does not take many medications and was able to name everything without being lead.
[2022-02-27 20:09] LABS: COVID-19 Test Invalid (Negative); IDNOW Serial# 6674DD1D
[2022-02-27 20:42] LABS: COVID-19 Test Negative (Negative); IDNOW Serial# 6674DD1D
[2022-02-27 20:53] LABS: Reflex Lactate? 2 Y
[2022-02-27 21:27] LABS: ~Lactic Acid-LAB USE ONLY 1.3 mmol/L (0.5-2.0)
[2022-02-27 22:09] VITALS: BP 97/54; PULSE 69; TEMP 36.7; O2SAT 96
--- NOTE | 2022-02-27 22:31 | PC.NURSE ---
RN to RN report given. PT aware of plan. Transported to room 343 by equipment service technician.
[2022-02-27 23:05] VITALS: BP 136/79; PULSE 67; RESP 18; TEMP 37.1; O2SAT 96
[2022-02-27 23:11] VITALS: BMI 28.3
[2022-02-27 23:58] VITALS: BMI 28.3
[2022-02-28] MEDS: 0.9 % Sodium Chloride Flush 3 ML SYRINGE IVFLUSH ×4 (00:14→19:13)
[2022-02-28 03:27] VITALS: BP 135/61; PULSE 71; RESP 18; TEMP 36.9; O2SAT 96
[2022-02-28 06:00] LABS: Hematocrit 37.6 % (42.0-52.0); Hemoglobin 12.4 g/dl (14.0-18.0); Mean Corpuscular Hemoglobin 28.1 pg (27.0-33.0); Mean Corpuscular Volume 85.1 fL (80.0-98.0); Mean Platelet Volume 9.5 fL (9.4-12.4); Platelet Count 251 X10*3/uL (160-400); Red Blood Count 4.42 X10*6/uL (4.60-5.80); White Blood Count 12.5 X10*3/uL (4.8-10.8)
--- NOTE | 2022-02-28 06:05 | PC.NURSE ---
Assumed care of patient approx. 2315. Pt. alert, oriented *4, appropriate to situation and surroundings. No c/o pain. Physcian orders reviewed and care plan implemented. Dressing to right ischium changed; awaiting wound consult for dressings orders. Pt. tolerating mostly fluids; unable to eat substantial amounts of food at this time. Pt. continues on meropenem IV for UTI. [place] catheter changed overnight by patient. Dark bloody drainage noted via urine drainage bag. Low urine output noted; PVR notes 56cc. No bladder distention noted at this time. Pt. repositioned and immediate care needs addressed. Pt. agreeable to overnight plan of care. Resting.
--- NOTE | 2022-02-28 07:15 | P.PNIM_ITS ---
Subjective Subjective Date of Service: 03/01/22 Interval History: f/u on acute hemorrhagic cysitis interval history:feels better, no fever Physical Exam Vital Signs: Vital Signs: Last Vital Signs Temp 98.5 F 02/28/22 03:27 Pulse 71 02/28/22 03:27 Resp 18 02/28/22 03:27 BP 135/61 02/28/22 03:27 Pulse Ox 96 02/28/22 03:27 O2 Del Method 02/28/22 03:27 BMI result Body Mass Index 28.3 Const: Other: General: AO X 3, no acute distress Resp: CTA bilateral CVS: S1,S2,RRR GI: +BS, NT, no distention Skin: No rash, decub ulcer present on admission Neuro: motor grossly intact Psych: appropriate affect Objective Data Active Medications Acetaminophen (Acetaminophen 325 Mg Tablet) 650 mg PO Q6H PRN PRN Reason: Pain, Mild (Pain Scale 1-3) Docusate Sodium (Docusate Sodium 100 Mg Capsule) 100 mg PO DAILY PRN PRN Reason: Constipation Enoxaparin Sodium (Enoxaparin Sodium 40 Mg/0.4 Ml Syringe) 40 mg SUBCUT Q24H [facility] Last Admin: 02/27/22 19:47 Dose: 40 mg Documented By: RENARD Meropenem 1 gm/ Sodium (Chloride) 100 mls @ 200 mls/hr IV Q8H [facility] Last Infusion: 02/28/22 04:47 Dose: 0 mls/hr Documented By: JUAN FRANCISCO Ondansetron HCl (Ondansetron Hcl 4 Mg/2 Ml Vial) 4 mg IVPUSH Q8H PRN PRN Reason: Nausea and Vomiting Sodium Chloride (0.9 % Sodium Chloride Flush 3 Ml Syringe) 3 ml IVFLUSH QSHIFT [facility] Last Admin: 02/28/22 00:14 Dose: 3 ml Documented By: JUAN FRANCISCO Labs 02/28/22 05:14 02/27/22 15:10 Labs: Laboratory Results - last 24 hr 02/27/22 02/27/22 02/27/22 15:10 15:11 15:49 MCV 81.6 MCH 27.6 MCHC 33.9 RDW 14.9 Plt Count 302 MPV 9.0 L Immature Gran % (Auto) 0.6 H Neut % (Auto) 87.4 H Lymph % (Auto) 5.5 L [place] % (Auto) 5.9 Eos % (Auto) 0.4 Baso % (Auto) 0.2 Lymph # (Auto) 1.1 L [place] # (Auto) 1.2 Eos # (Auto) 0.1 Baso # (Auto) 0.1 Abs Immat Gran (auto) 0.12 H Absolute Neuts (auto) 17.6 H Absolute Nucleated RBC 0.000 Nucleated RBC % (auto) 0.0 Anion Gap 15 Estim Creat Clear Calc 84.3 Estimated GFR > 60 Random Glucose 145 H Lactic Acid 2.6 H* Lactic Acid F/U @ 2Hr Lactic Acid F/U @ 4Hr Calcium 8.9 D Total Bilirubin 0.7 Direct Bilirubin 0.2 AST 15 ALT 12 Alkaline Phosphatase 64 Total Protein 7.3 Albumin 3.6 Lipase 44 Urine Color Urine Appearance Urine pH Ur Specific [place] Urine Protein Urine Glucose (UA) Urine Ketones Urine Blood Urine Nitrite Ur Leukocyte Esterase Urine RBC Urine WBC Ur Squamous Epith Cells Urine Bacteria Hyaline Casts COVID-19 (BESSY) COVID-[employer] 02/27/22 02/27/22 02/27/22 18:51 19:28 20:20 MCV MCH MCHC RDW Plt Count MPV Immature Gran % (Auto) Neut % (Auto) Lymph % (Auto) [place] % (Auto) Eos % (Auto) Baso % (Auto) Lymph # (Auto) [place] # (Auto) Eos # (Auto) Baso # (Auto) Abs Immat Gran (auto) Absolute Neuts (auto) Absolute Nucleated RBC Nucleated RBC % (auto) Anion Gap Estim Creat Clear Calc Estimated GFR Random Glucose Lactic Acid Lactic Acid F/U @ 2Hr 2.1 H* Lactic Acid F/U @ 4Hr Calcium Total Bilirubin Direct Bilirubin AST ALT Alkaline Phosphatase Total Protein Albumin Lipase Urine Color Urine Appearance Urine pH Ur Specific [place] Urine Protein Urine Glucose (UA) Urine Ketones Urine Blood Urine Nitrite Ur Leukocyte Esterase Urine RBC Urine WBC Ur Squamous Epith Cells Urine Bacteria Hyaline Casts COVID-19 (BESSY) Invalid Negative [employer] See Note See Note 02/27/22 02/27/22 02/28/22 21:11 Unknown 05:14 MCV 85.1 MCH 28.1 MCHC 33.0 RDW 15.0 Plt Count 251 MPV 9.5 Immature Gran % (Auto) Neut % (Auto) Lymph % (Auto) [place] % (Auto) Eos % (Auto) Baso % (Auto) Lymph # (Auto) [place] # (Auto) Eos # (Auto) Baso # (Auto) Abs Immat Gran (auto) Absolute Neuts (auto) Absolute Nucleated RBC 0.000 Nucleated RBC % (auto) 0.0 Anion Gap Estim Creat Clear Calc Estimated GFR Random Glucose Lactic Acid Lactic Acid F/U @ 2Hr Lactic Acid F/U @ 4Hr 1.3 Calcium Total Bilirubin Direct Bilirubin AST ALT Alkaline Phosphatase Total Protein Albumin Lipase Urine Color BROWN Urine Appearance Cloudy Urine pH 6.5 Ur Specific [place] 1.025 Urine Protein 300 (3+) H Urine Glucose (UA) 100 H Urine Ketones 15 Urine Blood Large (3+) H Urine Nitrite Positive H Ur Leukocyte Esterase Moderate (2+) H Urine RBC >20 H Urine WBC 21-50 Ur Squamous Epith Cells 11-20 Urine Bacteria 3+ Hyaline Casts 0-2 COVID-19 (BESSY) COVID-19 Clin Com Assessment and Plan (1) Neurogenic urinary bladder disorder: Status: Acute (2) Cystitis with hematuria: Status: Acute (3) UTI (urinary tract infection): Status: Acute Plan 56-year-old male with a PMH significant for?C7 injury, paraplegic, mostly bed- bound, history of full-thickness ischial decubitus ulcer, uses condom catheter at night, and history of ESBL infection who presents to the ED with gross hematuria since yesterday. Pt?will be admitted to the hospital for treatment of severe cystitis with IV ABX. Acute severe hemorrhagic cystitis Gross hematuria since yesterday, patient with history of ESBL infection Meropenem 1g IV q8t Urology consult Acute lactic acidosis Type 1, not due to sepsis Full-thickness right ischial decubitus ulcer, chronic Does not currently appear infected or need debridement Position changes q2h Wound care consult Full Code Attending:?Dr. Madsen DVT Prophylaxis: Lovenox Pt will require a hospitalization of at least two nights for treatment of severe cystitis with IV abx Time Spent With Patient Time: Total time managing care of this patient today ____ minutes. Quality Stroke Does the patient have a stroke diagnosis?: No VTE Prior VTE?: No VTE Risk Level:: Medical - moderate - high VTE Device Contraindication: Treatment Not Indicated VTE Drug Contraindication: N/A - Med Ordered
[2022-02-28 07:48] VITALS: BP 121/67; PULSE 79; RESP 17; TEMP 36.9; O2SAT 97
--- NOTE | 2022-02-28 12:14 | P.CNUR_ITS ---
History of Present Illness Consult details Consult date: 02/28/22 Narrative: CC: cystitis with hematuria Tomás is a 56-year-old male. Known to Urology. Previous consultation 06/2020. Presentation to emergency department with hematuria, nausea, weakness. Has paraplegic from C7 injury for over 20 years. Typically empties bladder 2 times a day with intermittent catheterization. With a condom catheter at night for drainage. Had noted hematuria within his external catheter. Prior history of ESBL infections. WBC 20 on admission, down to 12.5 with antibiotics Imaging - BLADDER:? The urinary bladder wall is severely, diffusely thickened and there is perivesical edema and mild free fluid of the pelvis. No pelvic abscess. Discussed use of indwelling catheter washed receiving antibiotics At this point he would like to hold off and continue with condom catheter and CIC Continue with IV antibiotics as required and directed by culture results Review of Systems Constitutional: Constitutional: Reports as per HPI and Reports no additional constitutional complaints Cardiovascular: Cardiovascular: Reports as per HPI and Reports no additional cardiovascular complaints Respiratory: Respiratory: Reports as per HPI and Reports no additional respiratory complaints Gastrointestinal: Gastrointestinal: Reports as per HPI and Reports no additional gastrointestinal complaints Genitourinary: Genitourinary: Reports as per HPI Musculoskeletal: Musculoskeletal: Reports no additional musculoskeletal complaints and Reports as per HPI Neurologic: Reports system reviewed and no additional complaints, except as documented and Reports as per HPI [facility] Past Medical History Medical History C7 spinal cord injury Decubitus ulcer of buttock, stage 2 Paralysis Paraplegia Urinary retention Social History Social History Household Members: None Housing: House Do you presently have visiting nurse or other home services: Yes (ADJUSTO WRITER OPERATOR Wednesday, Wednesday, Wednesday) Patient Tobacco Use Status: Never used Tobacco Smoked in Last 30 Days: No Use of substances other than those prescribed or required for medical reasons: No Substance Use Type: Marijuana Currently Displaying Signs/Symptoms of Drug Intoxication Withdrawal: No Any prior treatment program specific to substance use: No Have you been hit, kicked, punched, or otherwise hurt by someone within the past year? If so, by whom?: No Do you feel safe in your current relationship?: No Current Relationship Is there a partner from a previous relationship who is making you feel unsafe now?: No Are you made to feel afraid or neglected: No Congregation Healthcare Practices: Pentecostalism Advance Directives: No Advance Directives Information Provided: Yes Do you have thoughts of harming others: None Do you have a plan to hurt others: No Plan Recently lost weight without trying: Unsure How much weight loss: Unsure Eating poorly because of decreased appetite: Yes Nutrition screen score: 5 Nutrition Risks: Poor intake 0-25% >4 days Poor oral hygiene: No service: Yes Current occupational status: retired and disabled Meds Allergies Allergy/AdvReac Type Severity Reaction Status Date / Time No Known Allergies Allergy Unverified 10/26/19 19:31 [No Known Allergies*] Active Medications: Current Medications Acetaminophen (Acetaminophen 325 Mg Tablet) 650 mg PO Q6H PRN PRN Reason: Pain, Mild (Pain Scale 1-3) Docusate Sodium (Docusate Sodium 100 Mg Capsule) 100 mg PO DAILY PRN PRN Reason: Constipation Enoxaparin Sodium (Enoxaparin Sodium 40 Mg/0.4 Ml Syringe) 40 mg SUBCUT Q24H [facility] Last Admin: 02/27/22 19:47 Dose: 40 mg Meropenem 1 gm/ Sodium (Chloride) 100 mls @ 200 mls/hr IV Q8H [facility] Last Admin: 02/28/22 11:56 Dose: 200 mls/hr Ondansetron HCl (Ondansetron Hcl 4 Mg/2 Ml Vial) 4 mg IVPUSH Q8H PRN PRN Reason: Nausea and Vomiting Sodium Chloride (0.9 % Sodium Chloride Flush 3 Ml Syringe) 3 ml IVFLUSH QSHIFT [facility] Last Admin: 02/28/22 08:59 Dose: 3 ml Home Medications Medication Instructions Recorded Confirmed Last Taken Type baclofen 10 mg tablet 10 mg PO BID 06/19/20 02/27/22 06/19/20 History multivitamin with minerals 1 tab PO DAILY 06/19/20 02/27/22 Unknown History sennosides 8.6 mg tablet (senna) 17.2 mg PO BID PRN Constipation 06/19/20 02/27/22 Unknown History simvastatin 20 mg tablet 20 mg PO DAILY 06/19/20 02/27/22 06/19/20 History Physical Exam Vital Signs: Vital Signs: Last Vital Signs Temp 98.5 F 02/28/22 07:48 Pulse 79 01/21/23 07:48 Resp 17 02/28/22 07:48 BP 121/67 02/28/22 07:48 Pulse Ox 97 02/28/22 07:48 O2 Del Method 02/28/22 07:48 BMI result Body Mass Index 28.3 Const: General: cooperative, healthy appearing, comfortable and no acute distress Orientation/consciousness: patient oriented x3 HEENT: Face and sinus: Yes normal facial exam Mouth: moist mucous membranes Neck: Neck: Yes normal visual inspection, Yes full ROM and Yes trachea midline Chest: Chest palpation & inspection: normal inspection of the chest Resp: Effort & Inspection: normal respiratory effort, able to speak in complete sentences and no respiratory distress GI: Inspection: Yes normal to inspection Back/Spine/Pelvis: Cervical Spine: normal cervical lordosis Thoracic/Lumbar Spine: thoracic and lumbar spine normal to inspection Skin: General skin exam: no rashes or lesions noted Neuro: General: patient oriented x3, tone normal and moves all extremities Extrem: General: Yes normal to inspection and Yes capillary refill normal Results Labs 02/28/22 05:14 02/27/22 15:10 Labs: Abnormal lab results 02/27/22 02/27/22 02/27/22 Range/Units 15:10 15:11 15:49 WBC 20.2 H (4.8-10.8) X10*3/uL RBC (4.60-5.80) X10*6/uL Hgb (14.0-18.0) g/dl Hct (42.0-52.0) % MPV 9.0 L (9.4-12.4) fL Immature Gran % (Auto) 0.6 H (0.0-0.4) % Neut % (Auto) 87.4 H (45-73) % Lymph % (Auto) 5.5 L (20-40) % Lymph # (Auto) 1.1 L (1.2-4.9) X10*3/uL Abs Immat Gran (auto) 0.12 H (0.00-0.03) X10*3/uL Absolute Neuts (auto) 17.6 H (2.0-8.3) x10*3/uL Random Glucose 145 H (60-115) mg/dL Lactic Acid 2.6 H* (0.5-2.0) mmol/L Lactic Acid F/U @ 2Hr (0.5-2.0) mmol/L Urine Protein (Neg-Trace) mg/dL Urine Glucose (UA) (Negative) mg/dL Urine Blood (Negative) Urine Nitrite (Negative) Ur Leukocyte Esterase (Negative) Urine RBC (0-2) /HPF 02/27/22 02/27/22 02/28/22 Range/Units 18:51 Unknown 05:14 WBC 12.5 H (4.8-10.8) X10*3/uL RBC 4.42 L (4.60-5.80) X10*6/uL Hgb 12.4 L (14.0-18.0) g/dl Hct 37.6 L (42.0-52.0) % MPV (9.4-12.4) fL Immature Gran % (Auto) (0.0-0.4) % Neut % (Auto) (45-73) % Lymph % (Auto) (20-40) % Lymph # (Auto) (1.2-4.9) X10*3/uL Abs Immat Gran (auto) (0.00-0.03) X10*3/uL Absolute Neuts (auto) (2.0-8.3) x10*3/uL Random Glucose (60-115) mg/dL Lactic Acid (0.5-2.0) mmol/L Lactic Acid F/U @ 2Hr 2.1 H* (0.5-2.0) mmol/L Urine Protein 300 (3+) H (Neg-Trace) mg/dL Urine Glucose (UA) 100 H (Negative) mg/dL Urine Blood Large (3+) H (Negative) Urine Nitrite Positive H (Negative) Ur Leukocyte Esterase Moderate (2+) H (Negative) Urine RBC >20 H (0-2) /HPF Short CBC 02/27/22 02/28/22 Range/Units 15:11 05:14 WBC 20.2 H 12.5 H (4.8-10.8) X10*3/uL Hgb 14.4 12.4 L (14.0-18.0) g/dl Hct 42.5 37.6 L (42.0-52.0) % Plt Count 302 251 (160-400) X10*3/uL BMP 01/20/23 15:10 Sodium 139 Potassium 4.6 D Chloride 105 Carbon Dioxide 24 BUN 16 Creatinine 1.01 Calcium 8.9 D Liver Function 02/27/22 Range/Units 15:10 Total Bilirubin 0.7 (0.0-1.0) mg/dL Direct Bilirubin 0.2 (0.0-0.5) mg/dL AST 15 (5-37) U/L ALT 12 (0-40) U/L Alkaline Phosphatase 64 (39-117) U/L Albumin 3.6 (3.5-5.0) g/dL Urine 02/27/22 Range/Units Unknown Urine Color BROWN Urine Appearance Cloudy Urine pH 6.5 (5.0-9.0) Ur Specific [place] 1.025 (1.005-1.025) Urine Protein 300 (3+) H (Neg-Trace) mg/dL Urine Glucose (UA) 100 H (Negative) mg/dL All other labs normal. Assessment and Plan (1) Cystitis with hematuria: Status: Acute (2) Neurogenic urinary bladder disorder: Status: Acute Plan continue with antibiotics per culture results Time Spent With Patient Time: Total time managing care of this patient today ____ minutes. Procedures Date of Service Date of Service: 02/28/22
[2022-02-28 15:37] VITALS: BP 113/72; PULSE 68; RESP 17; TEMP 36.7; O2SAT 97
[2022-02-28 19:06] VITALS: BP 128/67; PULSE 74; RESP 16; TEMP 36.7; O2SAT 97
[2022-03-01 03:30] VITALS: BP 152/84; PULSE 79; RESP 18; TEMP 36.8; O2SAT 96
[2022-03-01 08:00] VITALS: BP 117/72; PULSE 78; RESP 16; TEMP 37.1; O2SAT 95
--- NOTE | 2022-03-01 08:12 | HO.PM.IMPN ---
Subjective Subjective Date of Service: 03/01/22 Interval History: f/u on acute hemorrhagic cysitis interval history:feels better, no fever, culture growing e coli Review of Systems no hematuria no abd pain Physical Exam Vital Signs: Vital Signs: Last Vital Signs Temp 98.2 F 03/01/22 03:30 Pulse 79 03/01/22 03:30 Resp 18 03/01/22 03:30 BP 152/84 H 03/01/22 03:30 Pulse Ox 96 03/01/22 03:30 O2 Del Method 03/01/22 03:30 BMI result Body Mass Index 28.3 Const: Other: General: AO X 3, no acute distress Resp: CTA bilateral CVS: S1,S2,RRR GI: +BS, NT, no distention Skin: No rash, decub ulcer present on admission Neuro: motor grossly intact Psych: appropriate affect Objective Data Active Medications Acetaminophen (Acetaminophen 325 Mg Tablet) 650 mg PO Q6H PRN PRN Reason: Pain, Mild (Pain Scale 1-3) Docusate Sodium (Docusate Sodium 100 Mg Capsule) 100 mg PO DAILY PRN PRN Reason: Constipation Meropenem 1 gm/ Sodium (Chloride) 100 mls @ 200 mls/hr IV Q8H [facility] Last Infusion: 03/01/22 04:07 Dose: 0 mls/hr Documented By: JUAN FRANCISCO Ondansetron HCl (Ondansetron Hcl 4 Mg/2 Ml Vial) 4 mg IVPUSH Q8H PRN PRN Reason: Nausea and Vomiting Sodium Chloride (0.9 % Sodium Chloride Flush 3 Ml Syringe) 3 ml IVFLUSH QSHIFT [facility] Last Admin: 02/28/22 19:13 Dose: 3 ml Documented By: JUAN FRANCISCO Labs 02/28/22 05:14 02/27/22 15:10 Microbiology Microbiology Results: Microbiology 02/27/22 16:29 Urine Culture - Final Urine clean catch - Urine cruz top Escherichia coli 02/27/22 16:10 Blood Culture - Preliminary Blood - Venous No growth after 24 hours. 02/27/22 15:49 Blood Culture - Preliminary Blood - Venous No growth after 24 hours. Assessment and Plan (1) Neurogenic urinary bladder disorder: Status: Acute (2) Cystitis with hematuria: Status: Acute (3) UTI (urinary tract infection): Status: Acute Plan 56-year-old male with a PMH significant for?C7 injury, paraplegic, mostly bed-bound, history of full-thickness ischial decubitus ulcer, uses condom catheter at night, and history of ESBL infection who presents to the ED with gross hematuria since yesterday. Pt?will be admitted to the hospital for treatment of severe cystitis with IV ABX. Acute severe hemorrhagic cystitis, d/t E coli, no sensitivity yet but ESBL in past Meropenem 1g IV q8t, D3 Urology consult Acute lactic acidosis Type 1, not due to sepsis Full-thickness right ischial decubitus ulcer, chronic Does not currently appear infected or need debridement Position changes q2h Wound care consult Full Code Attending:?Dr. Madsen DVT Prophylaxis: Lovenox Need for inpatient: complicated cystitis requiring IV abx Time Spent With Patient Time: Total time managing care of this patient today ____ minutes. Quality Stroke Does the patient have a stroke diagnosis?: No VTE Prior VTE?: No VTE Risk Level:: Medical - moderate - high VTE Device Contraindication: Treatment Not Indicated VTE Drug Contraindication: N/A - Med Ordered
[2022-03-01] MEDS: 0.9 % Sodium Chloride Flush 3 ML SYRINGE IVFLUSH ×3 (09:14→19:50)
--- NOTE | 2022-03-01 11:29 | MHC.CM.PN ---
PT REPORTS HE LIVES ALONE AND IS ACTIVE WITH [facility], ORDINARY SEAMAN, AND VEHICLE GLASS TECHNICIAN SERVICES HE SAYS THE [facility] IS EXCELSURE-REFERRAL SENT PT REPORTS HE HAS A REMIGIO LIFT, TUB BENCH, HOME MODIFICATIONS, W/C/RAMP, AND LIFT VAN HE IS COVID VAX AND BOOSTED PCP: ALAN CHRISTIAN JR AT [facility] HE SAYS HIS SISTER IS HIS HCP DCP: RETURN HOME AND RESUME SERVICES PT REPORTS HIS VEHICLE GLASS TECHNICIAN WILL LIKELY BE ABLE TO TRANSPORT USING PTS VAN IF PT IS UNABLE TO ARRANGE TRANSPORT, [facility]
[2022-03-01 16:00] VITALS: BP 136/84; PULSE 63; RESP 18; TEMP 36.6; O2SAT 96
[2022-03-01 20:00] VITALS: BP 148/82; PULSE 64; RESP 16; TEMP 36.1; O2SAT 97
[2022-03-02 03:36] VITALS: BP 152/84; PULSE 62; RESP 16; TEMP 36.6; O2SAT 96
[2022-03-02 06:50] VITALS: BP 150/80; PULSE 68; RESP 18; TEMP 36.8; O2SAT 95
--- NOTE | 2022-03-02 07:16 | PM.DS ---
DS: Providers Provider Date of Service: 03/02/22 Date of admission: 02/27/22 18:40 Primary care physician: Fernando Weber NP Consults: 02/27/22 18:49 Consult to Infectious Diseases Routine Consulting Provider: Gillian Contreras Reason for consultation: UTI with hx of ESBL+ infection Consult to Urology Routine Consulting Provider: Russell Cunha Reason for consultation: Gross hematuria, complicated cystitis Has provider been notified: No Consult to Wound Care Routine Consulting Provider: [facility] Wound Care Management Reason for consultation: Full-thickness ischial wound DS: Diagnosis Discharge Diagnosis (1) Neurogenic urinary bladder disorder: Status: Acute (2) Cystitis with hematuria: Status: Acute (3) UTI (urinary tract infection): Status: Acute DS: Summary Hospital Course Hospital Course: Chief Complaint: Gross hematuria Pt is a 56-year-old male with a PMH significant for?C7 injury, paraplegic, mostly bed-bound, history of full-thickness ischial decubitus ulcer, uses condom catheter at night, and history of ESBL infection who presents to the ED with gross hematuria since yesterday. Pt performs self-catheterization with a [place] catheter twice a day, and yesterday noticed that there was bright red blood.? Patient also noted yesterday that he had chills, nausea but no vomiting, anorexia, and weakness/fatigue.? Of note patient has a past history of ESBL+ infection, and a history of complicated cystitis with his last hospitalization being in 06/2020.? Patient denies chest pain/pressure.? No shortness of breath.? Denies abdominal pain. In the ED patient was afebrile?with pulse of 85 and RR of 18.?Labs were significant for WBC of 20.2, random glucose of 145, lactic acid of 2.6 with repeat pending.? UA positive for UTI. CT?of abdomen and pelvis showed chronically thickened urinary bladder wall with severe perivesical edema and mild volume of free fluid in the pelvis, suggestive of severe cystitis. Also noted renal stones no evidence of hydroureter hydronephrosis and chronic findings of deep soft tissue ulcer consistent with chronic osteomyelitis of the ischium. Pt was treated with IVF and ceftriaxone. Pt will be admitted to the hospital for treatment of severe cystitis with IV ABX. Hospital course: He presented with hematuria, chills, nausea and found to have gross UTI but no sepsis, WBC 20K, no fever but chills. He has history of ESBL E coli and so after Ceftriaxone in ED was given Meropenem for 2 mary, culture ultimately came back positive for Ceftriaone sensitive E.coli and was switched back to Ceftriaone on day 3 and will be discharged with Ceftin for 10 days. Hematuria has resolved and overall is feeling better. Dr. Cunha (urologist) saw him with the following remarks ?BLADDER:? The urinary bladder wall is severely, diffusely thickened and there is perivesical edema and mild free fluid of the pelvis. No pelvic abscess. Discussed use of indwelling catheter washed receiving antibiotics At this point he would like to hold off and continue with condom catheter and CIC Continue with IV antibiotics as required and directed by culture results Time Spent with Patient Time attestation: Total time managing care of this patient today ____ minutes. Discharge coordination time: Greater than 30 minutes Quality: Safe Use of Opioids Does Pt have an Active Cancer Diagnosis on the Problem List?: No Quality: Stroke Does the patient have a stroke diagnosis?: No Physical Exam Vital Signs: Vital Signs: Last Vital Signs Temp 98.3 F 03/02/22 06:50 Pulse 68 03/02/22 06:50 Resp 18 03/02/22 06:50 BP 150/80 H 03/02/22 06:50 Pulse Ox 95 03/02/22 06:50 O2 Del Method 03/02/22 06:50 BMI result Body Mass Index 28.3 DS: Data Data Completed and Pending Labs on day of discharge: Preliminary micro results at discharge 02/27/22 16:10 Blood Culture - Preliminary Blood - Venous No growth after 48 hours. 02/27/22 15:49 Blood Culture - Preliminary Blood - Venous No growth after 48 hours. Discharge Plan Discharge Anticipated Discharge Date/Time: 03/02/22 07:19 Patient Disposition: Home Health Service Discharge Diagnosis: Hemorrhagic Cystitis, UTI Referrals: Fernando Weber AGRICULTURAL EQUIPMENT SALES MANAGER [Primary Care Provider] - 1 Week Discharge Medications: New cefuroxime axetil 250 mg tablet 250 mg PO BID 10 Days Qty: 20 0RF Continued sennosides [senna] 8.6 mg Tablet 17.2 mg PO BID PRN (Reason: Constipation) baclofen 10 mg Tablet 10 mg PO BID simvastatin 20 mg Tablet 20 mg PO DAILY multivitamin with minerals Tablet 1 tab PO DAILY Discharge Orders: Discharge Order (Routine); Ordered 03/02/22 Ordered By: Bunny Madsen Diet: Advance to usual diet Activity on Discharge: As tolerated Stand Alone Forms: Patient Portal Discharge page Care Plan Goals: Recovery from UTI Health Concerns: UTI, cystitis, hematuria Plan of Treatment: Take Ceftin (Cefuroxime) as recommended and follow up with your Doctor in a week Assessment: as above Discharge Date/Time: 03/02/22 17:51
[2022-03-02] MEDS: 0.9 % Sodium Chloride Flush 3 ML SYRINGE IVFLUSH (07:39)
[2022-03-02] MEDS: cefTRIAXone sodium 1 GM in 0.9 % Sodium Chloride 50 ML IV (07:39)
--- NOTE | 2022-03-02 10:55 | MHC.CM.PN ---
pt medically cleared to d/c home w/resump of services, cm met w/pt and pt reports he does need transport home, cm attempted to contact [place] transport liaison, detaled message left and awaiting a call back.
--- NOTE | 2022-03-02 12:38 | P.CNID_ITS ---
History of Present Illness Data of Consult Service Date: 03/02/22 Requesting physician: Bunny Madsen Primary Care Provider: Fernando Weber NP HPI Reason for consult: hematuria,cystitis He presents with one day of hematuria He came to ER and found to have cystitis with no obstruction or significant stones on CT. He has no fever or chills. Review of Systems Review of Systems: Yes all other systems are reviewed and are negative PMFSH Past Medical History Medical History C7 spinal cord injury Decubitus ulcer of buttock, stage 2 Paralysis Paraplegia Urinary retention Family History Family history: reviewed and not pertinent Social History Social History Household Members: None Housing: House Do you presently have visiting nurse or other home services: Yes (FOOD SERVER Wednesday, Wednesday, Wednesday) Patient Tobacco Use Status: Never used Tobacco Smoked in Last 30 Days: No Use of substances other than those prescribed or required for medical reasons: No Substance Use Type: Marijuana Currently Displaying Signs/Symptoms of Drug Intoxication Withdrawal: No Any prior treatment program specific to substance use: No Have you been hit, kicked, punched, or otherwise hurt by someone within the past year? If so, by whom?: No Do you feel safe in your current relationship?: No Current Relationship Is there a partner from a previous relationship who is making you feel unsafe now?: No Are you made to feel afraid or neglected: No Protestant Healthcare Practices: Zoroastrianism Advance Directives: No Advance Directives Information Provided: Yes Do you have thoughts of harming others: None Do you have a plan to hurt others: No Plan Recently lost weight without trying: Unsure How much weight loss: Unsure Eating poorly because of decreased appetite: Yes Nutrition screen score: 5 Nutrition Risks: Poor intake 0-25% >4 days Poor oral hygiene: No service: Yes Current occupational status: retired and disabled Meds Allergies Allergy/AdvReac Type Severity Reaction Status Date / Time No Known Allergies Allergy Verified 03/02/22 08:42 [No Known Allergies*] Active Medications: Current Medications Acetaminophen (Acetaminophen 325 Mg Tablet) 650 mg PO Q6H PRN PRN Reason: Pain, Mild (Pain Scale 1-3) Docusate Sodium (Docusate Sodium 100 Mg Capsule) 100 mg PO DAILY PRN PRN Reason: Constipation Ceftriaxone Sodium 1 gm/ (Sodium Chloride) 50 mls @ 100 mls/hr IV Q24H [facility] Last Infusion: 03/02/22 08:16 Dose: Infused Ondansetron HCl (Ondansetron Hcl 4 Mg/2 Ml Vial) 4 mg IVPUSH Q8H PRN PRN Reason: Nausea and Vomiting Sodium Chloride (0.9 % Sodium Chloride Flush 3 Ml Syringe) 3 ml IVFLUSH QSHIFT [facility] Last Admin: 03/02/22 07:39 Dose: 3 ml Home Medications Medication Instructions Recorded Confirmed Last Taken Type baclofen 10 mg tablet 10 mg PO BID 06/19/20 02/27/22 06/19/20 History multivitamin with minerals 1 tab PO DAILY 06/19/20 02/27/22 Unknown History sennosides 8.6 mg tablet (senna) 17.2 mg PO BID PRN Constipation 06/19/20 02/27/22 Unknown History simvastatin 20 mg tablet 20 mg PO DAILY 06/19/20 02/27/22 06/19/20 History Physical Exam Vital Signs: Vital Signs: Last Vital Signs Temp 98.3 F 03/02/22 06:50 Pulse 68 03/02/22 06:50 Resp 18 03/02/22 06:50 BP 150/80 H 03/02/22 06:50 Pulse Ox 95 03/02/22 06:50 O2 Del Method 03/02/22 06:50 BMI result Body Mass Index 28.3 Const: General: cooperative HEENT: Head: Yes normal to inspection Face and sinus: Yes normal facial exam Mouth: Normal oral and palatal mucosa present Teeth and gingiva: dentition normal Eyes: General: appearance normal, both eyes and all related structures Pupils: Equal, round and reactive pupils present Resp: Effort & Inspection: normal respiratory effort Cardio: Rate: regular rate Rhythm: regular rhythm GI: Palpation (GI): Soft to palpation and nontender : General: Yes no CVA tenderness Back/Spine/Pelvis: Back: no CVA tenderness Skin: General skin exam: no rashes or lesions noted Neuro: Other: insensate below waist chronic left sacral decubitus Cranial nerves: Yes Equal, round and reactive pupils present Extrem: General: Yes normal to inspection Psych: Appearance: grossly normal Results Labs 02/28/22 05:14 02/27/22 15:10 Microbiology Microbiology Results: Microbiology 02/27/22 16:10 Blood - Venous Blood Culture - Preliminary No growth after 48 hours. 02/27/22 15:49 Blood - Venous Blood Culture - Preliminary No growth after 48 hours. 02/27/22 16:29 Urine clean catch - Urine cruz top Urine Culture - Final Escherichia coli Assessment and Plan (1) Neurogenic urinary bladder disorder: Status: Acute (2) Cystitis with hematuria: Status: Acute He has no ESBL or obstruction He uses condom cath at night and selfcaths twice a day and doesnt want indwelling catheter He has hematuria but no bacteremia and no obstruction (3) Pressure ulcer: Status: Acute Plan 10 days Cefuroxime appropriate See Urology outpatient. Time Spent With Patient Time: Total time managing care of this patient today ____ minutes.
[2022-03-02 14:36] VITALS: BMI 28.3
--- NOTE | 2022-03-02 14:44 | MHC.CLN ---
NUTRITION CONSULT FOR POOR PO. DIET=REGULAR. REPORTED POOR PO INTAKE X 4 DAYS PRIOR TO ADMISSION. CURRENT INTAKE VARIABLE. INCREASED NUTRITION NEEDS DUE TO CHRONIC WOUND. ADDING ENSURE MAX PROTEIN BID. PROVIDES ADDITIONAL 300 KCALS, 60 G PROTEIN. FOLLOW FOR INTAKE, WOUND HEALING, SUPPLEMENT ACCEPTANCE.
== END 2022-03-02 17:51 | disposition home health service (06) | DRG 690 ==
LOC: HO.ED 15:24 → HO.EDOVER 19:05 → HO.S3 22:14
PROVIDERS: Emergency Medicine; Nurse Practitioner Family; Student in an Organized Health Care Education/Training Program; Admitting Provider Student in an Organized Health Care Education/Training Program; Emergency Provider Emergency Medicine; PCP Nurse Practitioner Family; Visit Provider Internal Medicine
DX: N30.01 Acute cystitis with hematuria (principal); G82.20 Paraplegia, unspecified; E87.21 Acute metabolic acidosis; B96.20 Unspecified Escherichia coli [E. coli] as the cause of diseases classified elsewhere; N31.9 Neuromuscular dysfunction of bladder, unspecified; L89.219 Pressure ulcer of right hip, unspecified stage; Z74.01 Bed confinement status; Z87.440 Personal history of urinary (tract) infections; Z20.822 Contact with and (suspected) exposure to COVID-19; Z79.899 Other long term (current) drug therapy
CPT/HCPCS: 36415; 74176; 80053; 81001; 82248; 83605; 83690; 85025; 85027; 87040; 87086; 87088; 87186; 87635; 96361; 96374; 99285; J0696; J1650; J2185

== ENCOUNTER 2022-05-23 21:02 | Emergency (ER) | payer OTHER, SELFPAY ==
[2022-05-23 21:16] VITALS: BP 139/62; BP 96/48; PULSE 59; PULSE 68; RESP 18; TEMP 36.6; O2SAT 97; BMI 27.6
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
--- NOTE | 2022-05-23 22:29 | MHC.EDTECH ---
This tech assumed care for patient at 2200,Patient's vitals were obtained,patient was changed over,[place] Catheter placed due to paraplegic. Patient was repositioned for comfort and awaiting provider at this time. Call ryan in reach
[2022-05-23 23:26] LABS: COVID-19 Test Negative (Negative); IDNOW Serial# 55D5AD1C
[2022-05-24 00:40] VITALS: BP 125/93; PULSE 60; RESP 18; TEMP 36.4; O2SAT 98
[2022-05-24 00:42] LABS: MANUAL DIFF FLAG NO
--- NOTE | 2022-05-24 00:44 | MHC.EDTECH ---
Patient's labs were drawn,vitals obtained. Patient was repositioned to left side,pillows and blankets between legs and feet elevated for comfort.Call ryan in reach.
[2022-05-24 00:45] LABS: Basophils Absolute Auto 0.1 X10*3/uL (0.0-0.2); Basophils Percent Auto 0.4 % (0-2); Eosinophils Absolute Auto 0.7 X10*3/uL (0.0-0.4); Eosinophils Percent Auto 5.4 % (0-4); Hemoglobin 12.2 g/dl (14.0-18.0); Imm Gran Abs Auto 0.15 X10*3/uL (0.00-0.03); Imm Gran Pct Auto 1.3 % (0.0-0.4); Lymphocytes Absolute Auto 1.9 X10*3/uL (1.2-4.9); Lymphocytes Percent Auto 15.5 % (20-40); Mean Corpuscular HGB Conc 33.9 g/dl (31.0-36.0); Mean Corpuscular Volume 82.6 fL (80.0-98.0); Monocytes Absolute Auto 0.8 X10*3/uL (0.1-1.2); Monocytes Percent Auto 6.9 % (2-11); Neutrophils Absolute Auto 8.4 x10*3/uL (2.0-8.3); Neutrophils Percent Auto 70.5 % (45-73); Platelet Count 243 X10*3/uL (160-400); Red Blood Count 4.36 X10*6/uL (4.60-5.80); Red Cell Distribution Width 14.1 % (11.0-16.0)
[2022-05-24 01:11] LABS: Alanine Aminotransferase 24 U/L (0-40); Alkaline Phosphatase 64 U/L (39-117); Anion Gap 14 (12-20); Aspartate Amino Transferase 27 U/L (5-37); Bilirubin Total 0.8 mg/dL (0.0-1.0); Blood Urea Nitrogen 7 mg/dL (9-16); Calcium 8.8 mg/dL (8.4-10.2); Carbon Dioxide 25 mmol/L (22-29); Chloride 108 mmol/L (96-108); Creatinine Clr Calc Pharmacy 95.6; Estimated Glomerular Filt Rate > 60; Ethanol < 10 mg/dL; Glucose Random 101 mg/dL (60-115); Potassium 3.5 mmol/L (3.3-5.1); Sodium 143 mmol/L (135-145); Total Protein 7.4 g/dL (6.5-8.0)
[2022-05-24 03:23] VITALS: BP 141/73; PULSE 65; RESP 18; TEMP 36.6; O2SAT 98
--- NOTE | 2022-05-24 03:24 | MHC.EDTECH ---
Vitals obtained,patient was repositioned to right side for comfort.
[2022-05-24 03:46] LABS: Amphetamine Screen Urine Not Detected (Not Detect); Barbiturates, Urine Not Detected (Not Detect); Benzodiazepines Screen Urine Not Detected (Not Detect); Cannabinoid Screen Urine Not Detected (Not Detect); Cocaine Screen Urine Not Detected (Not Detect); Fentanyl, urine Not Detected (Not Detect); Opiate Screen Urine Not Detected (Not Detect); Phencyclidine Screen Urine Not Detected (Not Detect)
--- NOTE | 2022-05-24 04:14 | PC.NURSE ---
Pt presented to the ED with verbalized SI, brought in by EMS, presently on a section 12. Reports increased stress, feelings of frustration, depression, being overwhelmed at home with no support system. During moments of frustration and verbal escalation, pt is redirectable. Pt is mostly calm and cooperative, denies SI at present. Denies any new pain at present.
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
--- NOTE | 2022-05-24 04:46 | PC.NURSE ---
Pt has been asked multiple times not to pull blankets up over head and face, continues to do it despite being provided reasons not to.
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
[2022-05-24 06:20] VITALS: BP 128/72; PULSE 86; RESP 18; TEMP 36.5; O2SAT 96
--- NOTE | 2022-05-24 06:21 | MHC.EDTECH ---
Vitals taken,Patient was repositioned to left side.emptied 150cc of urine,patient was given 120cc of gingerale.Call ryan in reach
--- NOTE | 2022-05-24 08:55 | PHA.MEDREC ---
Pharmacy Consult ? Medication Reconciliation Pharmacy has completed the medication reconciliation. Patient asleep. Received list from [place] which matched medical record. Ludmila DerasD
[2022-05-24 09:15] LABS: Appearance Urine Cloudy; Color Urine Yellow; Glucose Urine UA Negative (Negative); Leukocyte Esterase Urine Large (3+) (Negative); Nitrite Urine Positive (Negative); UMIC TRIGGER UACC YES; Urine Blood Trace (Negative); Urine Ketones Negative (Negative); Urine Protein Negative (Neg-Trace)
[2022-05-24 09:22] LABS: Bacteria Urine 4+ (None Seen); Hyaline Casts Urine 0-2 /LPF (0-2); RBC Urine 0-2 /HPF (0-2); Squamous Epithelial Cell Urine 0-2 /HPF (0-2); UACC Culture Trigger YES; WBC Urine >50 /HPF (0-5)
[2022-05-24 11:19] VITALS: BP 141/51; PULSE 55; RESP 16; O2SAT 96
--- NOTE | 2022-05-24 12:53 | PC.NURSE ---
Patient to be discharged. Chair van to be booked for patient.
[2022-05-24 16:15] VITALS: BP 148/81; PULSE 50; RESP 16; TEMP 36.5; O2SAT 98
--- NOTE | 2022-05-24 16:52 | PC.NURSE ---
Patient waiting for ambulance to take him home at this time. Patient is laying on stretcher calm and cooperative.
--- NOTE | 2022-05-24 20:15 | PC.NURSE ---
Addendum entered by Helena Schulz RN 05/24/22 20:29: At 2014 Patient had bowel movement, patient was cleaned up, the dressing to his bottom was soiled and changed. Original Note: Patient
== END 2022-05-24 20:36 | disposition home or self-care (01) ==
PROVIDERS: Emergency Medicine; Emergency Provider Emergency Medicine Emergency Medical Services; PCP Nurse Practitioner Family
DX: F32.A Depression, unspecified (principal); R45.851 Suicidal ideations; R45.850 Homicidal ideations; L89.302 Pressure ulcer of unspecified buttock, stage 2; Z20.822 Contact with and (suspected) exposure to COVID-19; F41.9 Anxiety disorder, unspecified; G82.50 Quadriplegia, unspecified; F12.90 Cannabis use, unspecified, uncomplicated; Z72.89 Other problems related to lifestyle; Z63.8 Other specified problems related to primary support group; Z59.2 Discord with neighbors, lodgers and landlord; Z63.4 Disappearance and death of family member; Z79.899 Other long term (current) drug therapy; Z79.02 Long term (current) use of antithrombotics/antiplatelets
CPT/HCPCS: 36415; 80053; 80307; 81001; 82077; 85025; 87086; 87088; 87186; 87635; 99284; 99285; S9485

== ENCOUNTER 2024-07-11 09:55 | Inpatient (IN) | payer OTHER, SELFPAY ==
--- NOTE | ~2024-07-11 | XR_ITS ---
EXAMINATION: XR FOOT 1-2 VIEWS LEFT HISTORY: R/O osteo COMPARISON: There are no prior studies available for comparison. FINDINGS: AP and lateral views of the left foot are submitted. The bones are osteopenic. No area of lytic destruction is seen. There is an old fracture of the distal fibula. A portion of an intramedullary alycia is seen in the distal tibia. No acute fracture or dislocation is identified. There is diffuse mild degenerative change. There is marked diffuse soft tissue swelling. There are vascular calcifications. XR/XR foot LT 2V IMPRESSION: Osteopenia. No plain film evidence of osteomyelitis. If this remains a clinical concern, three-phase bone scan or MRI is recommended. Electronically signed by: Zach Andrews MD 07/11/2024 11:16 AM EDT
--- NOTE | ~2024-07-11 | MR_ITS ---
CLINICAL HISTORY: Rule out Osteomyelitis Pt concerned mid foot to heel, stated he had old ulcer on h eel. Increased FOV and slices to cover area of concerned. Pt's foot was unbale to flex in order to be in the Ankle/Foot coil, best position possible MR left ankle with and without intravenous contrast Comparison: X-rays of the right foot from 06/10/2024. Findings: Plantar ulceration involving lateral soft tissues of the plantar soft tissues of the forefoot extends to the 5th metatarsophalangeal joint with abnormal fluid and signal with septic arthropathy and enhancement with loss of the T1 signal at 5th metatarsal head of the osteomyelitis (image 5 of series 13). Marrow signal artifacts noted of the ankle where there is moderate to severe osteoarthritis and large effusion present. Additional marrow edema is multifocal including metatarsal phalangeal joints. Majority of the digits are obscured with edge of the field artifacts and excluded from field of view. Accessory ossicle is partly fused of the dorsal talus. Moderate osteoarthritis of the subtalar joint. Additional mild-moderate osteoarthritis includes imaged forefoot of the imaged midfoot. Fluid of the musculature as can be seen with myositis of the intrinsic musculature including imaged flexors and extensors; particularly medially. Complete tear proximal rupture of abductor hallucis. Likely old/chronic given Thin and likely chronic tear of the imaged deltoid ligament. Fluid of the tenosynovitis includes flexor tendons and peroneal tendons. Balvtyuy-[id number]-vwwweo fluid likely tenosynovitis of the additional hallucis tendons (1st digit), particularly distally. Mild tenosynovitis of the includes extensor digitorum digits. Partial-width tear of the peroneus of the pelvis. Diffuse superficial soft tissue edema enhancement as can be seen with venous stasis and cellulitis. Partially imaged Achilles unremarkable accounting for imaged field artifacts. Fluid and mixed signal with enhancement may reflect crystal deposition and/or findings of gout of the 1st metatarsal phalangeal joint. Septic arthropathy and other inflammatory arthropathy can have a similar fluid and enhancement. Metal of the plantar soft tissues and/or other foreign body questioned in the partially imaged 1st digit distally (imaged 52 of series 12 and 14. IMPRESSION: 1. Fluid and enhancement of the septic arthropathy of the 5th metatarsophalangeal joint with the adjacent plantar and lateral soft tissue ulceration. 2. Findings of myositis, multifocal cellulitis, and tenosynovitis. Fasciitis could also be considered given multiple cup compartment fluid. 3. 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 4. Additional tendinopathy and/or tenosynovitis with fluid is noted. This document has been electronically signed by: Douglas Lou MD on 07/11/2024 20:18:45
[2024-07-11 10:15] VITALS: BP 147/74; PULSE 66; RESP 18; TEMP 36.6; O2SAT 97; O2SAT 99; BMI 30.1
--- NOTE | 2024-07-11 10:21 | PC.NURSE ---
Pt has 2 wounds on left foot which are dressed typically by VN.
--- NOTE | 2024-07-11 10:22 | PC.NURSE ---
Pt has 2 foot wounds typically dressed by VNA. The left heel has aquacel covering it. Under left pinky toe has small wound surrounded by yellow tissue
[2024-07-11 11:13] LABS: MANUAL DIFF FLAG NO
[2024-07-11 11:16] LABS: Basophils Percent Auto 0.4 % (0-2); Eosinophils Absolute Auto 0.4 X10*3/uL (0.0-0.4); Eosinophils Percent Auto 3.9 % (0-4); Hematocrit 35.8 % (42.0-52.0); Hemoglobin 12.2 g/dl (14.0-18.0); Imm Gran Abs Auto 0.09 X10*3/uL (0.00-0.03); Lymphocytes Absolute Auto 0.9 X10*3/uL (1.2-4.9); Lymphocytes Percent Auto 9.7 % (20-40); Mean Corpuscular HGB Conc 34.1 g/dl (31.0-36.0); Mean Corpuscular Hemoglobin 29.3 pg (27.0-33.0); Mean Corpuscular Volume 86.1 fL (80.0-98.0); Mean Platelet Volume 9.2 fL (9.4-12.4); Monocytes Absolute Auto 0.7 X10*3/uL (0.1-1.2); Monocytes Percent Auto 7.5 % (2-11); Neutrophils Absolute Auto 7.2 x10*3/uL (2.0-8.3); Neutrophils Percent Auto 77.5 % (45-73); Platelet Count 223 X10*3/uL (160-400); Red Blood Count 4.16 X10*6/uL (4.60-5.80); Red Cell Distribution Width 15.3 % (11.0-16.0); White Blood Count 9.3 X10*3/uL (4.8-10.8)
--- NOTE | 2024-07-11 11:29 | ED.GENADULT ---
HPI - General Adult General Chief complaint: Extremity Problem Stated complaint: L FOOT INF PER EMS Time Seen by Provider: 07/11/24 11:03 History of Present Illness HPI narrative: Patient is a 59-year-old male presented today with having a ulcer to the left foot. Has a history of being paraplegic for the last 24 years. History of UTIs in the past. Patient from home. No fever no chills. Baseline has mild sensation from C7 found. He has no motor from C7 down. There is no fever no chills. Visiting nurse noted increasing redness to the foot and ulcer to the sole of the foot. Since patient in for further evaluation. Related Data Home Medications ?Medication ?Instructions ?Recorded ?Confirmed baclofen 10 mg tablet 10 mg PO BID 06/19/20 05/24/22 multivitamin with minerals 1 tab PO DAILY 06/19/20 05/24/22 sennosides 8.6 mg tablet (senna) 17.2 mg PO BID PRN Constipation 06/19/20 05/24/22 baclofen 10 mg tablet 5 mg PO DAILY@1200 05/24/22 05/24/22 docusate sodium 100 mg tablet 100 mg PO BID PRN Constipation 05/24/22 05/24/22 simvastatin 40 mg tablet 20 mg PO DAILY 05/24/22 05/24/22 Previous Rx's ?Medication ?Instructions ?Recorded cefuroxime axetil 250 mg tablet 250 mg PO BID #14 tabs 05/24/22 Allergies Allergy/AdvReac Type Severity Reaction Status Date / Time No Known Allergies Allergy Verified 07/11/24 10:21 [No Known Allergies*] Review of Systems Review of Systems: Positive ulcer to the lateral aspect of the distal sole of the foot. Areas an area of oozing out material. Surrounding by area of redness. FORMERLY [facility] Past Medical History Attestation statement: The following information was validated with the patient. Medical History Pressure ulcer Decubitus ulcer of buttock, stage 2 Urinary retention Paraplegia C7 spinal cord injury Paralysis Social History Social History Household Members: None Housing: House Do you presently have visiting nurse or other home services: Yes (VISUAL COORDINATOR Wednesday, WednesdayWednesday) Patient Tobacco Use Status: Never used Tobacco Smoked in Last 30 Days: No Use of substances other than those prescribed or required for medical reasons: No Substance Use Type: Marijuana Advance Directives: Yes Advance Directives Information Provided: Yes Advance Directives on File: No Do you have a plan to hurt others: No Plan service: Yes Current occupational status: retired and disabled Physical Exam ED Vital Signs: Vital Signs - 24 hr 07/11/24 10:15 07/11/24 11:49 Temperature 97.8 F 98.6 F Pulse Rate 66 59 Respiratory Rate 18 12 Blood Pressure 114/64 Pulse Oximetry 99 98 Oxygen Delivery Method Room Air BMI result Body Mass Index 30.1 Appearance: Alert. Oriented X3. No acute distress. Eyes: Pupils equal, round and reactive to light. ENT: Pharynx normal. Neck: Normal inspection. Neck supple. No lymph nodes noted. No crepitus CVS: Normal heart rate and rhythm. Pulses normal. Normal S1 and S2 Respiratory: No respiratory distress. Breath sounds normal. No Wheezing. No rales Abdomen: Soft and nontender. No rigidity. No distention. good BS x4. Extremities: We +edema in the right foot Positive redness to the sole of the foot with an area of ulceration that is oozing out serosanguineous material. Warmth to touch at the distal sole. Involving approximately 1/3 of the sole. Distal pulses intact Neuro: Oriented X 3. Only has flexion extension to the arm. No movement from C7 down Medications Administered Discontinued Medications Generic Name Dose Route Start Last Admin Trade Name Freq PRN Reason Stop Dose Admin Ampicillin Sodium/Sulbactam 100 mls @ 200 mls/hr 07/11/24 11:28 07/11/24 12:38 Sodium 3 gm/ Sodium Chloride IV 07/11/24 11:57 Infused ONCE ONE Infusion Medical Decision Making Medical Decision Making [facility] Narrative: Patient 59 years old presents today with having a foot ulcer increasing redness. White count was normal. Patient does have elevation in sed rate elevation in CRP. Cultures obtained. Antibiotics started. Will require admission for IV antibiotics. Currently in guarded condition. Patient is a paraplegic Differential Diagnosis Differential Diagnoses: The differential diagnosis associated with the presentation includes Cellulitis versus osteomyelitis Admission/Observation Consideration of admission/observation: Escalation of care including admission/observation considered Consult Healthcare Provider Management of the patient was discussed with: Hospitalist Lab Data MDM Lab Attestation statement: I reviewed the patient's lab results. 07/11/24 11:06 07/11/24 11:06 Labs: Lab Results 07/11/24 07/11/24 Range/Units 11:06 11:56 WBC 9.3 (4.8-10.8) X10*3/uL RBC 4.16 L (4.60-5.80) X10*6/uL Hgb 12.2 L (14.0-18.0) g/dl Hct 35.8 L (42.0-52.0) % MCV 86.1 (80.0-98.0) fL MCH 29.3 (27.0-33.0) pg MCHC 34.1 (31.0-36.0) g/dl RDW 15.3 (11.0-16.0) % Plt Count 223 (160-400) X10*3/uL MPV 9.2 L (9.4-12.4) fL Immature Gran % (Auto) 1.0 H (0.0-0.4) % Neut % (Auto) 77.5 H (45-73) % Lymph % (Auto) 9.7 L (20-40) % [place]cdowell % (Auto) 7.5 (2-11) % Eos % (Auto) 3.9 (0-4) % Baso % (Auto) 0.4 (0-2) % Lymph # (Auto) 0.9 L (1.2-4.9) X10*3/uL [place]cd[place] # (Auto) 0.7 (0.1-1.2) X10*3/uL Eos # (Auto) 0.4 (0.0-0.4) X10*3/uL Baso # (Auto) 0.0 (0.0-0.2) X10*3/uL Abs Immat Gran (auto) 0.09 H (0.00-0.03) X10*3/uL Absolute Neuts (auto) 7.2 (2.0-8.3) x10*3/uL Absolute Nucleated RBC 0.000 (0.0-0.012) X10*3/uL Nucleated RBC % (auto) 0.0 (0.0-0.2) /100WBC ESR 87 H (0-15) MM/HR Sodium 144 (135-145) mmol/L Potassium 3.6 (3.3-5.1) mmol/L Chloride 109 H (96-108) mmol/L Carbon Dioxide 30 H (22-29) mmol/L Anion Gap 9 L (12-20) BUN 16 (9-16) mg/dL Creatinine 0.83 (0.5-1.4) mg/dL Estim Creat Clear Calc 111.0 Estimated GFR > 60 Random Glucose 106 (60-115) mg/dL Lactic Acid 0.9 (0.5-2.0) mmol/L Calcium 9.0 (8.4-10.2) mg/dL Total Bilirubin 0.6 (0.0-1.0) mg/dL AST 22 (5-37) U/L ALT 12 (0-40) U/L Alkaline Phosphatase 73 (39-117) U/L C-Reactive Protein 10.38 H (< or = 0.50) mg/dL Total Protein 7.9 (6.5-8.0) g/dL Albumin 4.0 (3.5-5.0) g/dL Independent Interpretation I performed an independent interpretation of an: Plain X-Ray (X-ray showed no acute fracture.) Radiology Impression Discussion of test interpretation with radiology: I have reviewed the radiologist's reading. Radiologist Impression: Radiology felt that there is no evidence for osteo External Record Review External record reviewed: Inpatient record Discharge Plan Discharge Clinical Impression: Cellulitis Patient Disposition: Admitted As Inpatient Prescriptions: No Action sennosides [senna] 8.6 mg Tablet 17.2 mg PO BID PRN (Reason: Constipation) baclofen 10 mg Tablet 10 mg PO BID multivitamin with minerals Tablet 1 tab PO DAILY simvastatin 40 mg Tablet 20 mg PO DAILY baclofen 10 mg Tablet 5 mg PO DAILY@1200 docusate sodium 100 mg Tablet 100 mg PO BID PRN (Reason: Constipation) cefuroxime axetil 250 mg tablet 250 mg PO BID Qty: 14 0RF Print Language: Sami
[2024-07-11 11:40] LABS: Alanine Aminotransferase 12 U/L (0-40); Alkaline Phosphatase 73 U/L (39-117); Anion Gap 9 (12-20); Aspartate Amino Transferase 22 U/L (5-37); Bilirubin Total 0.6 mg/dL (0.0-1.0); Blood Urea Nitrogen 16 mg/dL (9-16); Carbon Dioxide 30 mmol/L (22-29); Chloride 109 mmol/L (96-108); Estimated Glomerular Filt Rate > 60; Glucose Random 106 mg/dL (60-115); Potassium 3.6 mmol/L (3.3-5.1); Sodium 144 mmol/L (135-145); Total Protein 7.9 g/dL (6.5-8.0)
[2024-07-11 11:44] LABS: C Reactive Protein 10.38 mg/dL (< or = 0.50)
[2024-07-11 11:49] VITALS: BP 114/64; PULSE 59; RESP 12; TEMP 37; O2SAT 98
[2024-07-11] MEDS: Ampicillin Sodium/Sulbactam Na 3 GM in 0.9 % Sodium Chloride 100 ML IV (11:59)
[2024-07-11 12:19] LABS: Erythrocyte Sedimentation Rate 87 MM/HR (0-15)
[2024-07-11 12:29] LABS: Lactic Acid 0.9 mmol/L (0.5-2.0)
[2024-07-11 14:15] VITALS: BP 122/65; PULSE 75; RESP 18; TEMP 36.5; O2SAT 97
--- NOTE | 2024-07-11 15:18 | PM.IMHP ---
History of Present Illness Date of Service: 07/11/24 Chief Complaint: Cellulitis, Left foot wound 59 year old male with PMH of paraplegia for 24 years, history of UTI, Decubitus Ulcer stage 2, C7 spinal cord injury, Paralysis who presents with Ulcer of the distal sole of his left foot. Drainage was present surrounded by redness. Patient lives home independently and drives. Has RUG FRAME MOUNTER three times a week and VNA twice weekly for wound care. Per patient over the weekend VNA noted wound on his left foot which had some redness. Patient reports he developed some redness and VNA recommended he present for evaluation. Patient reports that he had an appointment with his primary care doctor tomorrow and had planned to have his PCP evaluate. Baseline has mild sensation from C7 found. He has no motor from C7 down. He denies any pain. Denies fever or chills now but reports had some chills over the weekend. Denies any CP or SOB, denies any abdominal pain. Patient SC himself twice daily, reports that he voids throughout the day. White count was normal. Patient does have elevated CRP and ESR 87. Blood and wound cultures obtained. Received dose of Ampicillin. He will be admitted to hospital for Cellulitis and Rule out Osteomyelitis. Review of Systems Review of Systems: Denies any shortness of breath, chest pain, dizziness, lightheadedness, abdominal pain or discomfort, nausea vomiting or diarrhea. Denies any pain. FOR[facility], LAT[facility] Medical History Pressure ulcer Decubitus ulcer of buttock, stage 2 Urinary retention Paraplegia C7 spinal cord injury Paralysis Social History Household Members: None Housing: House Do you presently have visiting nurse or other home services: Yes (STRATEGIC MANAGER Wednesday, Wednesday, Wednesday) Patient Tobacco Use Status: Never used Tobacco Smoked in Last 30 Days: No Use of substances other than those prescribed or required for medical reasons: No Substance Use Type: Marijuana Advance Directives: Yes Advance Directives Information Provided: Yes Advance Directives on File: No Do you have a plan to hurt others: No Plan service: Yes Current occupational status: retired and disabled Meds Allergies Allergy/AdvReac Type Severity Reaction Status Date / Time No Known Allergies Allergy Verified 07/11/24 10:21 [No Known Allergies*] Home Medications ?Medication ?Instructions ?Recorded ?Confirmed ?Last Taken ?Type baclofen 10 mg tablet 10 mg PO BID 06/19/20 05/24/22 06/19/20 History multivitamin with minerals 1 tab PO DAILY 06/19/20 05/24/22 Unknown History sennosides 8.6 mg tablet (senna) 17.2 mg PO BID PRN Constipation 06/19/20 05/24/22 Unknown History baclofen 10 mg tablet 5 mg PO DAILY@1200 05/24/22 05/24/22 Unknown History docusate sodium 100 mg tablet 100 mg PO BID PRN Constipation 05/24/22 05/24/22 Unknown History simvastatin 40 mg tablet 20 mg PO DAILY 05/24/22 05/24/22 Unknown History Physical Exam Vital Signs and Narrative: Vital Signs: Last Vital Signs Temp 97.7 F 07/11/24 14:15 Pulse 75 07/11/24 14:15 Resp 18 07/11/24 14:15 BP 122/65 07/11/24 14:15 Pulse Ox 97 07/11/24 14:15 O2 Del Method Room Air 07/11/24 14:15 BMI result Body Mass Index 30.1 CONST: Alert and oriented, in NAD. Well nourished HEENT: Normocephalic, atraumatic, MMM, Eyes clear, Neck supple RESP: Lungs clear, RRR even and regular HEART:,RRR, S1, S2, trace edema GI:Abdomen Soft NT, ND. + BS times four :Deferred Extremities: Redness and warmth to lateral foot, dressing intact. Patient reports wound to coccyx, declines to turn at this time. DP intact. SKIN: Warm dry and intact, no visible lesions or rashes NEURO:CN II-XII Intact bilaterally, Sensation intact. Speech clear PSYCH: Normal affect Results Labs 07/11/24 11:06 07/11/24 11:06 Labs: Laboratory Results - last 24 hr 07/11/24 07/11/24 11:06 11:56 MCV 86.1 MCH 29.3 MCHC 34.1 RDW 15.3 Plt Count 223 MPV 9.2 L Immature Gran % (Auto) 1.0 H Neut % (Auto) 77.5 H Lymph % (Auto) 9.7 L Mckean % (Auto) 7.5 Eos % (Auto) 3.9 Baso % (Auto) 0.4 Lymph # (Auto) 0.9 L Mckean # (Auto) 0.7 Eos # (Auto) 0.4 Baso # (Auto) 0.0 Abs Immat Gran (auto) 0.09 H Absolute Neuts (auto) 7.2 Absolute Nucleated RBC 0.000 Nucleated RBC % (auto) 0.0 ESR 87 H Anion Gap 9 L Estim Creat Clear Calc 111.0 Estimated GFR > 60 Random Glucose 106 Lactic Acid 0.9 Calcium 9.0 Total Bilirubin 0.6 AST 22 ALT 12 Alkaline Phosphatase 73 C-Reactive Protein 10.38 H Total Protein 7.9 Albumin 4.0 Imaging Radiologist's Impressions: Impressions Foot X-Ray 07/11/24 10:55 IMPRESSION: Osteopenia. No plain film evidence of osteomyelitis. If this remains a clinical concern, three-phase bone scan or MRI is recommended. Electronically signed by: Zach Andrews MD 07/11/2024 11:16 AM EDT Assessment and Plan (1) Cellulitis of left foot: Status: Acute Plan 59-year-old male with a past medical history of paraplegia, history of UTIs, who was admitted from home with increased redness warmth and drainage to left lateral distal sole of foot. Will be admitted for wound management and IV ABT. Medication reconciliation pending Cellulitis Left foot Presented from home after drainage and redness developed to left foot Elevated Sed Rate and CRP MRI with contrast, Blood and wound cultures done. Will start Zosyn and Vancomycin Follow labs Consulted ID. Wound care consult. Paraplegia/History of UTI's/Neurogenic bladder Patient self caths twice daily Supportive care On Baclofen at home Patient is a FULL CODE DVT Prophylaxis: Lovenox Quality Stroke Does the patient have a stroke diagnosis?: No VTE Prior VTE?: No VTE Risk Level:: Medical - moderate - high VTE Device Contraindication: Treatment Not Indicated VTE Drug Contraindication: N/A - Med Ordered
--- NOTE | 2024-07-11 15:51 | PC.NURSE ---
Pt changed over to hospital bed to be re comfortable. Applied pillows under legs to take pressure of his heels. Also placed him off his coccyx.
--- NOTE | 2024-07-11 15:56 | MHC.EDTECH ---
Patient belonging was completed. Patient moved to hospital bed resting comfortably on it within call ryan in his reach.
[2024-07-11] MEDS: Piperacillin Sodium/Tazobactam 3.375 GM in 0.9 % Sodium Chloride 50 ML IV ×2 (16:19→22:16)
[2024-07-11] MEDS: Enoxaparin Sodium 40 MG/0.4 ML SYRINGE SUBCUT (16:19)
--- NOTE | 2024-07-11 16:56 | PC.NURSE ---
love held untill after Pt returns from MRI.
--- NOTE | 2024-07-11 17:18 | PHA.MEDREC ---
Pharmacy Consult ? Medication Reconciliation Pharmacy has completed the medication reconciliation. Med list obtained from [place]
[2024-07-11] MEDS: gadobutroL 10 ML VIAL IVPUSH (18:24)
[2024-07-11] MEDS: vancomycin/NS 2,000 MG/500 ML PLAST..BAG 250 MG IV (18:59)
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
[2024-07-11 19:17] VITALS: BP 118/61; PULSE 63; RESP 14; TEMP 36.9; O2SAT 99
[2024-07-11 19:48] VITALS: BMI 31.2
--- NOTE | 2024-07-11 20:11 | PHA.PROG ---
Admission Date/Time: July 11, 2024 12:51 Indication: SKIN Weight in k.254 kg Adjusted body weight in Kg: Marcellus body weight in Kg: Obesity Dosing Indication % IBW: Serum Creatinine - Last 168 Hours 07/11/24 11:06 Creatinine 0.83 Estimated CrCl and GFR - Last 168 Hours 07/11/24 11:06 Estim Creat Clear Calc 111.0 Estimated GFR > 60 Vancomycin Loading Dose: 2000 MG Current Vancomycin Dosing Regimen: 1000 MG Q12H Vancomycin Monitoring using AUC goal of 400 - 600 range with trough as surrogate marker: NLC=435 TROUGH=12.9 Date and Time for next Vancomycin Level to be drawn: 07/13/24 @0600 Pharmacist Comments on Vancomycin Plan: Vancomycin dosing will take advantage of [employer] as a clinical decision support tool that uses Bayesian modeling to calculate individual patient's pharmacokinetic parameters and forecast the patient's drug concentration time course with the target goal AUC 24 range of 400 - 600 mg/L/hr.
[2024-07-11 20:44] VITALS: BP 168/86; PULSE 62; RESP 18; TEMP 36.6; O2SAT 96
[2024-07-11] MEDS: Docusate Sodium 100 MG CAPSULE PO (22:14)
[2024-07-11] MEDS: Baclofen 20 MG TABLET PO (22:14)
[2024-07-12] MEDS: 0.9 % Sodium Chloride Flush 3 ML SYRINGE IVFLUSH ×3 (00:49→16:19)
[2024-07-12 03:27] VITALS: BP 123/61; PULSE 77; RESP 20; TEMP 37.7; O2SAT 96
[2024-07-12] MEDS: Piperacillin Sodium/Tazobactam 3.375 GM in 0.9 % Sodium Chloride 50 ML IV ×4 (05:00→21:11)
[2024-07-12 06:00] VITALS: RESP 16
[2024-07-12 06:16] LABS: MANUAL DIFF FLAG NO
[2024-07-12 06:34] LABS: Basophils Percent Auto 0.5 % (0-2); Eosinophils Absolute Auto 0.4 X10*3/uL (0.0-0.4); Eosinophils Percent Auto 5.9 % (0-4); Hematocrit 32.2 % (42.0-52.0); Hemoglobin 10.8 g/dl (14.0-18.0); Imm Gran Abs Auto 0.04 X10*3/uL (0.00-0.03); Imm Gran Pct Auto 0.5 % (0.0-0.4); Lymphocytes Absolute Auto 1.4 X10*3/uL (1.2-4.9); Lymphocytes Percent Auto 18.9 % (20-40); Mean Corpuscular HGB Conc 33.5 g/dl (31.0-36.0); Mean Corpuscular Hemoglobin 29.3 pg (27.0-33.0); Mean Corpuscular Volume 87.5 fL (80.0-98.0); Mean Platelet Volume 9.8 fL (9.4-12.4); Monocytes Absolute Auto 0.6 X10*3/uL (0.1-1.2); Monocytes Percent Auto 8.3 % (2-11); Neutrophils Absolute Auto 4.8 x10*3/uL (2.0-8.3); Neutrophils Percent Auto 65.9 % (45-73); Platelet Count 242 X10*3/uL (160-400); Red Blood Count 3.68 X10*6/uL (4.60-5.80); Red Cell Distribution Width 15.1 % (11.0-16.0); White Blood Count 7.3 X10*3/uL (4.8-10.8)
[2024-07-12 06:39] LABS: Alanine Aminotransferase 11 U/L (0-40); Albumin Level 3.5 g/dL (3.5-5.0); Alkaline Phosphatase 68 U/L (39-117); Anion Gap 9 (12-20); Aspartate Amino Transferase 21 U/L (5-37); Bilirubin Total 0.6 mg/dL (0.0-1.0); Blood Urea Nitrogen 12 mg/dL (9-16); Calcium 8.5 mg/dL (8.4-10.2); Carbon Dioxide 29 mmol/L (22-29); Chloride 110 mmol/L (96-108); Creatinine Clr Calc Pharmacy 97.5; Estimated Glomerular Filt Rate > 60; Glucose Random 97 mg/dL (60-115); Potassium 3.3 mmol/L (3.3-5.1); Sodium 145 mmol/L (135-145); Total Protein 7.1 g/dL (6.5-8.0)
[2024-07-12 06:40] LABS: Creatinine Clr Calc Pharmacy 108.8; Estimated Glomerular Filt Rate > 60
[2024-07-12 07:51] VITALS: BP 141/72; PULSE 71; RESP 17; TEMP 36.6; O2SAT 95
[2024-07-12] MEDS: Atorvastatin Calcium 80 MG TABLET PO (08:18)
[2024-07-12] MEDS: vancomycin HCL 1,000 MG in 0.9 % Sodium Chloride 250 ML 270 MG IV ×2 (08:19→19:29)
[2024-07-12] MEDS: Baclofen 20 MG TABLET PO ×2 (08:37→21:09)
[2024-07-12 11:17] VITALS: BMI 31.2
--- NOTE | 2024-07-12 11:20 | P.PNIM_ITS ---
Subjective Subjective Date of Service: 07/12/24 Interval History: seen and evaluated this morning denies fever or chills tolerating PO can not feel pain no other events Review of Systems Review of Systems: Yes all other systems are reviewed and are negative Physical Exam 2 Vital Signs: Vital Signs: Last Vital Signs Temp 97.8 F 07/12/24 07:51 Pulse 71 07/12/24 07:51 Resp 17 07/12/24 07:51 BP 141/72 H 07/12/24 07:51 Pulse Ox 95 07/12/24 07:51 O2 Del Method Room Air 07/12/24 07:51 BMI result Body Mass Index 31.2 Const: Other: Constitutional : Awake, interactive, not in distress Neck : Normal inspection, Supple Cardiovascular : RRR, no JVP, no lower extremity edema Respiratory : good bilateral air entry, no crackles, wheezes or rhonchi Gastrointestinal: soft, lax, Normal bowel sounds, Non tender Skin : Warm, Dry, The left foot lateral plantar aspect near the metatarsal head area wound was debrided with left foot moderate edemat with erythema. Neurological : Alert & oriented x3, paraplegic Objective Data Active Medications Acetaminophen (Acetaminophen 325 Mg Tablet) 650 mg PO Q6H PRN PRN Reason: Pain, Mild 1-3,fever,headache Atorvastatin Calcium (Atorvastatin Calcium 80 Mg Tablet) 80 mg PO DAILY [facility] Last Admin: 07/12/24 08:18 Dose: 80 mg Documented By: ISH Baclofen (Baclofen 20 Mg Tablet) 20 mg PO BID [facility] Last Admin: 07/12/24 08:37 Dose: 20 mg Documented By: ISH Calcium Carbonate (Calcium Carbonate 750 Mg Tab.Chew) 750 mg PO Q4H PRN PRN Reason: Heartburn Docusate Sodium (Docusate Sodium 100 Mg Capsule) 100 mg PO BID [facility] Last Admin: 07/12/24 08:19 Dose: Not Given Documented By: ISH Non-Admin Reason: Patient Refused Enoxaparin Sodium (Enoxaparin Sodium 40 Mg/0.4 Ml Syringe) 40 mg SUBCUT Q24H [facility] Last Admin: 07/11/24 16:19 Dose: 40 mg Documented By: KAEL Piperacillin Sod/Tazobactam (Sod 3.375 gm/ Sodium Chloride) 50 mls @ 100 mls/hr IV Q6H [facility] Last Admin: 07/12/24 10:23 Dose: 100 mls/hr Documented By: ISH Vancomycin HCl 1,000 mg/ (Sodium Chloride) 270 mls @ 270 mls/hr IV Q12H [facility] Last Infusion: 07/12/24 09:19 Dose: Infused Documented By: LUKAS Ibuprofen (Ibuprofen 600 Mg Tablet) 600 mg PO TID PRN PRN Reason: Pain (Scale Score 1-3) Magnesium Hydroxide (Milk Of Magnesia 30 Ml Oral.Susp) 30 ml PO DAILY PRN PRN Reason: Constipation Melatonin (Melatonin 3 Mg Tablet) 6 mg PO BEDTIME PRN PRN Reason: Insomnia Ondansetron HCl (Ondansetron Hcl 4 Mg/2 Ml Vial) 4 mg IVPUSH Q8H PRN PRN Reason: Nausea and Vomiting Pharmacy Consult (Consult Rx Vancomycin Dosing) 1 each MISCELLANE DAILY PRN PRN Reason: Consult order Polyethylene Glycol (Polyethylene Glycol 3350 17 Gm Powd.Pack) 17 gm PO DAILY PRN PRN Reason: Constipation Sodium Chloride (0.9 % Sodium Chloride Flush 3 Ml Syringe) 3 ml IVFLUSH QSHIFT [facility] Last Admin: 07/12/24 08:31 Dose: 3 ml Documented By: ISH Labs 07/12/24 06:00 07/12/24 06:00 Labs: Laboratory Results - last 24 hr 07/11/24 07/11/24 07/12/24 11:06 11:56 06:00 MCV 87.5 MCH 29.3 MCHC 33.5 RDW 15.1 Plt Count 242 MPV 9.8 Immature Gran % (Auto) 0.5 H Neut % (Auto) 65.9 Lymph % (Auto) 18.9 L [place] % (Auto) 8.3 Eos % (Auto) 5.9 H Baso % (Auto) 0.5 Lymph # (Auto) 1.4 [place] # (Auto) 0.6 Eos # (Auto) 0.4 Baso # (Auto) 0.0 Abs Immat Gran (auto) 0.04 H Absolute Neuts (auto) 4.8 Absolute Nucleated RBC 0.000 Nucleated RBC % (auto) 0.0 ESR 87 H Anion Gap 9 L 9 L Estim Creat Clear Calc 111.0 97.5 Estimated GFR > 60 Random Glucose 106 Lactic Acid 0.9 Calcium 9.0 Total Bilirubin 0.6 AST 22 ALT 12 Alkaline Phosphatase 73 C-Reactive Protein 10.38 H Total Protein 7.9 Albumin 4.0 07/12/24 07/12/24 06:00 06:00 MCV MCH MCHC RDW Plt Count MPV Immature Gran % (Auto) Neut % (Auto) Lymph % (Auto) [place] % (Auto) Eos % (Auto) Baso % (Auto) Lymph # (Auto) [place] # (Auto) Eos # (Auto) Baso # (Auto) Abs Immat Gran (auto) Absolute Neuts (auto) Absolute Nucleated RBC Nucleated RBC % (auto) ESR Anion Gap Estim Creat Clear Calc 108.8 Estimated GFR > 60 > 60 Random Glucose 97 Lactic Acid Calcium 8.5 Total Bilirubin 0.6 AST 21 ALT 11 Alkaline Phosphatase 68 C-Reactive Protein Total Protein 7.1 Albumin 3.5 Microbiology Microbiology Results: Microbiology 07/11/24 12:40 Gram Stain - Final Foot Left Routine Culture - Preliminary Culture in progress. Assessment and Plan (1) Cellulitis of left foot: Status: Acute (2) Neurogenic urinary bladder disorder: Status: Acute (3) Pressure ulcer of left foot, stage 3: Status: Acute Plan 59-year-old male with a past medical history of paraplegia, history of UTIs, who was admitted from home with increased redness warmth and drainage to left lateral distal sole of foot. Will be admitted for wound management and IV ABT. Medication reconciliation pending Cellulitis Left foot and stage 3 pressure wound MRI with contrast showing, Fluid and enhancement of the septic arthropathy of the 5th metatarsophalangeal joint with the adjacent plantar and lateral soft tissue ulceration. myositis, multifocal cellulitis, and tenosynovitis. Fasciitis could also be considered given multiple cup compartment fluid. Blood and wound cultures pending Continue Zosyn and Vancomycin Follow labs Consulted ID. Surgery following Wound care per surgery consider PICC and home Abx if ID recommend Follow Vancomycin trough Paraplegia/History of UTI's/Neurogenic bladder Patient self caths twice daily Supportive care On Baclofen at home Patient is a FULL CODE DVT Prophylaxis: Lovenox The patient will need hospital stay for treatment of cellulitis and septic arthropathy who need IV antibiotics treatment pending ID eval Quality Stroke Does the patient have a stroke diagnosis?: No VTE Prior VTE?: No VTE Risk Level:: Medical - moderate - high VTE Device Contraindication: Treatment Not Indicated VTE Drug Contraindication: N/A - Med Ordered
--- NOTE | 2024-07-12 11:30 | MHC.CLN ---
NUTRITION DIET=REGULAR. SKIN WITH UNSTAGEABLE PRESSURE INJURY TO RIGHT BUTTOCK. ADDING ENSURE MAX BID TO PROMOTE SKIN INTEGRITY. SUPPLEMENT PROVIDES 300 KCALS, 60 G PROTEIN. FOLLOW FOR PO INTAKE AND SKIN INTEGRITY. SEE CLINICAL NUTRITION ASSESSMENT 07/12/24.
--- NOTE | 2024-07-12 11:31 | MHC.CM.PN ---
Addendum entered by Jessica Luke 07/12/24 13:42: MESSAGE LEFT FOR [facility] WITH UPDATE ON POSSIBLE NEED FOR IV ABT AT HOME. AWAITING RETURN CALL. Original Note: CM MET WITH PT AT BEDSIDE AND IS NON-AMBULATORY DUE TO PARAPALEGIA. PT USES W/C FOR MOBILITY, HAS HOSPITAL BED WITH SPECIALTY MATTRESS, REMIGIO LIFT AND MODIFIED LIVING SPACE. +DRIVES. 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 PT STATES HE IS 100% [facility] CONNECT[facility]. +HCP, [facility]. PCP ALAN CHRISTIAN SALES PROFESSIONAL AT THE [facility]. DP: HOME WITH RESUMPTION OF SERVICES IS THE GOAL. PT MAY NEED LT IV ABT. AWAITING ID CONSULT. REFERRAL SENT TO [facility] SHOULD HOME IV BE THE PLAN. PT MAY NEED BLS TRANSPORT HOME. CM WILL CONTINUE TO FOLLOW FOR ANY CHANGE TO DC PLAN/NEEDS.
--- NOTE | 2024-07-12 13:47 | P.CDIM_ITS ---
PROVIDER RESPONSE TEXT: To clarify, the appropriate diagnosis supported by the clinical indicators: Pressure Injury Right Buttock: likely QUERY TEXT: PHYSICIAN'S DOCUMENTATION REQUEST Date of Query: 07/12/2024 12:27 PM EDT Patient Name: GIGI TRIPLETT Admit Date: 07/11/2024 Dear Linus Childress MD, A review of the medical record indicates additional documentation may be needed. Please review below and update the documentation accordingly. Clinical Indicators: Wound care assessment notes 07/11/24 - Pressure Injury Right Buttock, Unstageable Dry and Intact Adhesive dressing. Based on the above, could you please provide further information regarding the ulcer/wound/injury: Pressure Injury Right Buttock possible, probable, suspected, cannot rule out etc. Other (explain) Clinically unable to determine (explain) Thank you, Jazmine Umaña, CCS, CDIS Use of terms such as suspected, likely, concern for, or probable (associated with a specific diagnosi s that is being evaluated, monitored, or treated as if it exists) are acceptable and can be coded in the inpatient se tting, when documented at the time of discharge. Please use your independent medical judgment in providing your response. THIS QUERY IS PART OF THE PERMANENT MEDICAL RECORD
--- NOTE | 2024-07-12 14:28 | W.PM.IDCN ---
History of Present Illness Data of Consult Service Date: 07/12/24 Requesting physician: Linus Childress Primary Care Provider: Fernando Weber NP HPI Reason for consult: septic arthropathy 5th MTP He presents with 3-4 days lateral 5th toe redness and swelling. He has had chronic ulcer on heel that has not changed. He has paralysis for 24 years. He has MRI septic arthropathy 5th MTP joint. Review of Systems Review of Systems: Yes all other systems are reviewed and are negative PMFSH Past Medical History Medical History (Updated 07/12/24 @ 14:32 by Gillian Contreras MD) Septic arthritis of foot Pressure ulcer Decubitus ulcer of buttock, stage 2 Urinary retention Paraplegia C7 spinal cord injury Paralysis Family History Family history: reviewed and not pertinent Social History Social History Household Members: None Housing: House Do you presently have visiting nurse or other home services: Yes (Home health and VNA 3 days week but ajusts schedule as needed) Patient Tobacco Use Status: Never used Tobacco Second Hand Smoke Exposure: No Substance Use Type: Marijuana service: Yes Current occupational status: retired and disabled Meds Allergies Allergy/AdvReac Type Severity Reaction Status Date / Time No Known Allergies Allergy Verified 07/11/24 10:21 [No Known Allergies*] Active Medications: Current Medications Acetaminophen (Acetaminophen 325 Mg Tablet) 650 mg PO Q6H PRN PRN Reason: Pain, Mild 1-3,fever,headache Atorvastatin Calcium (Atorvastatin Calcium 80 Mg Tablet) 80 mg PO DAILY [facility] Last Admin: 07/12/24 08:18 Dose: 80 mg Baclofen (Baclofen 20 Mg Tablet) 20 mg PO BID [facility] Last Admin: 07/12/24 08:37 Dose: 20 mg Calcium Carbonate (Calcium Carbonate 750 Mg Tab.Chew) 750 mg PO Q4H PRN PRN Reason: Heartburn Docusate Sodium (Docusate Sodium 100 Mg Capsule) 100 mg PO BID [facility] Last Admin: 07/12/24 08:19 Dose: Not Given Enoxaparin Sodium (Enoxaparin Sodium 40 Mg/0.4 Ml Syringe) 40 mg SUBCUT Q24H [facility] Last Admin: 07/11/24 16:19 Dose: 40 mg Piperacillin Sod/Tazobactam (Sod 3.375 gm/ Sodium Chloride) 50 mls @ 100 mls/hr IV Q6H [facility] Last Infusion: 07/12/24 10:53 Dose: Infused Vancomycin HCl 1,000 mg/ (Sodium Chloride) 270 mls @ 270 mls/hr IV Q12H [facility] Last Infusion: 07/12/24 09:19 Dose: Infused Ibuprofen (Ibuprofen 600 Mg Tablet) 600 mg PO TID PRN PRN Reason: Pain (Scale Score 1-3) Magnesium Hydroxide (Milk Of Magnesia 30 Ml Oral.Susp) 30 ml PO DAILY PRN PRN Reason: Constipation Melatonin (Melatonin 3 Mg Tablet) 6 mg PO BEDTIME PRN PRN Reason: Insomnia Ondansetron HCl (Ondansetron Hcl 4 Mg/2 Ml Vial) 4 mg IVPUSH Q8H PRN PRN Reason: Nausea and Vomiting Pharmacy Consult (Consult Rx Vancomycin Dosing) 1 each MISCELLANE DAILY PRN PRN Reason: Consult order Polyethylene Glycol (Polyethylene Glycol 3350 17 Gm Powd.Pack) 17 gm PO DAILY PRN PRN Reason: Constipation Sodium Chloride (0.9 % Sodium Chloride Flush 3 Ml Syringe) 3 ml IVFLUSH QSHIFT [facility] Last Admin: 07/12/24 08:31 Dose: 3 ml Home Medications ?Medication ?Instructions ?Recorded ?Confirmed ?Last Taken ?Type simvastatin 40 mg tablet 20 mg PO DAILY 05/24/22 07/11/24 Unknown History baclofen 20 mg PO BID spasticity 07/11/24 07/11/24 Unknown History ibuprofen 600 mg tablet 600 mg PO TID PRN Pain (Scale 07/11/24 07/11/24 Unknown History Score 1-3) Physical Exam Vital Signs: Vital Signs: Last Vital Signs Temp 97.8 F 07/12/24 07:51 Pulse 71 07/12/24 07:51 Resp 17 07/12/24 07:51 BP 141/72 H 07/12/24 07:51 Pulse Ox 95 07/12/24 07:51 O2 Del Method Room Air 07/12/24 07:51 BMI result Body Mass Index 31.2 Extrem: Other: left foot reddened area open lateral 5th toe paralysis C7 Results Labs 07/12/24 06:00 07/12/24 06:00 Labs: Short CBC 07/12/24 Range/Units 06:00 WBC 7.3 (4.8-10.8) X10*3/uL Hgb 10.8 L (14.0-18.0) g/dl Hct 32.2 L (42.0-52.0) % Plt Count 242 (160-400) X10*3/uL BMP 07/12/24 07/12/24 06:00 06:00 Sodium 145 Potassium 3.3 Chloride 110 H Carbon Dioxide 29 BUN 12 Creatinine 0.96 0.86 Calcium 8.5 Liver Function 07/12/24 Range/Units 06:00 Total Bilirubin 0.6 (0.0-1.0) mg/dL AST 21 (5-37) U/L ALT 11 (0-40) U/L Alkaline Phosphatase 68 (39-117) U/L Albumin 3.5 (3.5-5.0) g/dL Microbiology Microbiology Results: Microbiology 07/11/24 11:46 Blood - Venous Blood Culture - Preliminary No growth after 24 hours. 07/11/24 11:46 Blood - Venous Blood Culture - Preliminary No growth after 24 hours. 07/11/24 12:40 Foot Left Gram Stain - Final 07/11/24 12:40 Foot Left Routine Culture - Preliminary Culture in progress. Assessment and Plan (1) Pressure ulcer of left foot, stage 3: Status: Acute (2) Septic arthritis of foot: Status: Acute Plan There is no bacteremia or organism growing from foot. He has prior Providencia There is no distinct OM but septic arthropathy 5th MTP Would continue IV Vancomycin and Zosyn for now and if no growth IV Ertapenem and Vancomycin outpatient for 3-4 weeks
[2024-07-12 15:43] VITALS: BP 170/87; PULSE 64; RESP 18; TEMP 36.9; O2SAT 98
[2024-07-12] MEDS: Enoxaparin Sodium 40 MG/0.4 ML SYRINGE SUBCUT (16:19)
--- NOTE | 2024-07-12 17:13 | HO.WOUND ---
Wound Consult: Initial 59yr old?male admitted to [facility] on 07/11/24 - See progress notes and H&P for detailed history.? Wound consult placed for Left ischium.? Patient agreeable to assessment and photo documentation.? Arrival to bedside patient reports he had had the wound for sometime and treats topically with Alginate and seeks care at the ID and follows wit wound care through the ID. He reports he had various pressure injuries over the last 20hrs (Sacrum Bilateral Hips, Trochanters, Ischium heels and Feet). Of note the patient is a paraplegic and currently left foot is followed by general surgery this admission and topical orders are in place and will defer to them for continued topical care. The patient is noted to have scattered areas of dark maroon scabs to the knees unclear if pressure or abrasion related - stable scabs may leave [employer] and off load pressure from surfaces. Right Ischium Etiology: ?Stage 4 Pressure Injury ?Present on Admission Measurements: 6cm x 2cm x 2cm Wound Bed: full thickness tissue loss - down to bone without bone exposed Drainage / Odor: no odor - moderate to large amount of lozada drainage Edges: ? macerated and epibole Adele wound: ?MASD - No Induration, Fluctuance or Warmth noted Pain: denies pain / feeling paraplegic Goals of Treatment: ? Durafiber for moisture management Recommendations: 1. Turn and Reposition every 2 hours and as needed for patient comfort.? Use pillows or wedges to support off loading positions. 2. Off Load all bony prominences with use of pillows and heel boots if needed.? Apply Preventative foams where needed. ? 3. Monitor for incontinence and moisture control, use barrier creams when needed for prevention and treatment. 4. Provide adequate and supplemental nutrition.? 5. Order Specialty mattress from [employer] - Pulsate Air loss. 6. When applicable maintain blood glucose levels per Providers order. Right Ischium and Left Heel - Off Load Pressure with Q2 hr turns and use of pillows Cleanse and irrigate with NS, Pat dry.? Apply barrier to periwound, lightly pack with Durafiber AG, be sure to leave a wick to easy removal.? Cover with Foam dressing or gauze wrap.? Change every other day. Left Plantar - Off Load Pressure with Q2 hr turns and use of pillows Cleanse and irrigate with NS, Pat dry.? Apply barrier to periwound, lightly pack with saline wet gauze, cover with dry gauze, ABD pad and gauze wrap.? Change Daily May follow with Yemi wrap. Re-consult wound care Nurse for wound deterioration or wound changes.
[2024-07-12 19:19] VITALS: BP 155/72
[2024-07-12 19:34] VITALS: PULSE 56; RESP 18; TEMP 37.1; O2SAT 95
--- NOTE | 2024-07-12 22:30 | PC.NURSE ---
Patient refusing to reposition at this time, pt allowed to offload with pillows. Awaiting specialty bed, should be arriving shortly this evening.
--- NOTE | 2024-07-12 23:05 | PC.NURSE ---
Patient transferred into a specialty bed with multiple staff. Patient repositioned, pillows for offloading.
[2024-07-13] MEDS: 0.9 % Sodium Chloride Flush 3 ML SYRINGE IVFLUSH ×3 (00:43→16:38)
[2024-07-13 03:11] VITALS: BP 141/87; PULSE 59; RESP 18; TEMP 36.4; O2SAT 96
[2024-07-13] MEDS: Piperacillin Sodium/Tazobactam 3.375 GM in 0.9 % Sodium Chloride 50 ML IV ×4 (04:04→21:02)
[2024-07-13 06:51] LABS: MANUAL DIFF FLAG NO
[2024-07-13 06:58] LABS: Basophils Absolute Auto 0.1 X10*3/uL (0.0-0.2); Eosinophils Absolute Auto 0.5 X10*3/uL (0.0-0.4); Eosinophils Percent Auto 6.4 % (0-4); Hematocrit 33.6 % (42.0-52.0); Hemoglobin 11.4 g/dl (14.0-18.0); Imm Gran Abs Auto 0.08 X10*3/uL (0.00-0.03); Imm Gran Pct Auto 1.1 % (0.0-0.4); Lymphocytes Absolute Auto 1.6 X10*3/uL (1.2-4.9); Lymphocytes Percent Auto 22.7 % (20-40); Mean Corpuscular HGB Conc 33.9 g/dl (31.0-36.0); Mean Corpuscular Hemoglobin 29.5 pg (27.0-33.0); Mean Platelet Volume 9.4 fL (9.4-12.4); Monocytes Absolute Auto 0.6 X10*3/uL (0.1-1.2); Monocytes Percent Auto 8.9 % (2-11); Neutrophils Absolute Auto 4.3 x10*3/uL (2.0-8.3); Neutrophils Percent Auto 59.9 % (45-73); Platelet Count 234 X10*3/uL (160-400); Red Blood Count 3.86 X10*6/uL (4.60-5.80); White Blood Count 7.2 X10*3/uL (4.8-10.8)
[2024-07-13 07:26] LABS: Vancomycin Random 13.3 mcg/mL (15-20)
[2024-07-13 07:28] LABS: Anion Gap 11 (12-20); Blood Urea Nitrogen 11 mg/dL (9-16); Calcium 8.8 mg/dL (8.4-10.2); Carbon Dioxide 30 mmol/L (22-29); Chloride 109 mmol/L (96-108); Creatinine Clr Calc Pharmacy 106.3; Estimated Glomerular Filt Rate > 60; Glucose Random 89 mg/dL (60-115); Potassium 3.6 mmol/L (3.3-5.1); Sodium 146 mmol/L (135-145)
[2024-07-13 08:08] VITALS: BP 154/74; PULSE 59; RESP 18; TEMP 36.6; O2SAT 95
[2024-07-13] MEDS: vancomycin HCL 1,000 MG in 0.9 % Sodium Chloride 250 ML 270 MG IV ×2 (08:44→19:32)
[2024-07-13] MEDS: Atorvastatin Calcium 80 MG TABLET PO (08:49)
[2024-07-13] MEDS: Baclofen 20 MG TABLET PO ×2 (08:49→21:01)
--- NOTE | 2024-07-13 12:25 | MHC.CM.PN ---
Addendum entered by Angella Alvarez RN 07/13/24 12:31: Requested copy of HCP from [facility]. Original Note: Patient will need 3-4 weeks of IV abx on dc - daily ertapenem and BID vanco. Unable to manage independently, VNA unable to accommodate daily/BID visits and patient's family is not local to assist. Discussed w/ patient who agrees to SNF for duration of abx. Accepted a bed at [facility]. Clinicals faxed to Anjelica @ [facility], who will initiate auth. Anticipate dc tomorrow.
--- NOTE | 2024-07-13 14:20 | PM.PNGS ---
Subjective Subjective Date of Service: 07/13/24 Interval history: Seen for a wound check of ulcers on the left heel area and left lateral foot Patient is a paraplegic Has been diagnosed to have septic arthritis of the 5th metatarsal as well Physical Exam Vital Signs: Vital Signs: Last Vital Signs Temp 98 F 07/13/24 08:08 Pulse 59 07/13/24 08:08 Resp 18 07/13/24 08:08 BP 154/74 H 07/13/24 08:08 Pulse Ox 95 07/13/24 08:08 O2 Del Method Room Air 07/13/24 08:08 BMI result Body Mass Index 31.2 Const: General: comfortable and no acute distress Resp: Effort & Inspection: normal respiratory effort Cardio: Rate: regular rate Extrem: Other: ulcer, 2 x 2 cm, left heel, clean, superficial, no pus Ulcer, 2.5 x 2 cm, forefoot at the area of the 5th metatarsal head, also clean, no pus, superficial Objective Data Active Medications Acetaminophen (Acetaminophen 325 Mg Tablet) 650 mg PO Q6H PRN PRN Reason: Pain, Mild 1-3,fever,headache Atorvastatin Calcium (Atorvastatin Calcium 80 Mg Tablet) 80 mg PO DAILY [facility] Last Admin: 07/13/24 08:49 Dose: 80 mg Documented By: LUKAS Baclofen (Baclofen 20 Mg Tablet) 20 mg PO BID [facility] Last Admin: 07/13/24 08:49 Dose: 20 mg Documented By: LUKAS Calcium Carbonate (Calcium Carbonate 750 Mg Tab.Chew) 750 mg PO Q4H PRN PRN Reason: Heartburn Docusate Sodium (Docusate Sodium 100 Mg Capsule) 100 mg PO BID [facility] Last Admin: 07/13/24 08:51 Dose: Not Given Documented By: LUKAS Non-Admin Reason: Patient Refused Enoxaparin Sodium (Enoxaparin Sodium 40 Mg/0.4 Ml Syringe) 40 mg SUBCUT Q24H [facility] Last Admin: 07/12/24 16:19 Dose: 40 mg Documented By: LUKAS Piperacillin Sod/Tazobactam (Sod 3.375 gm/ Sodium Chloride) 50 mls @ 100 mls/hr IV Q6H [facility] Last Infusion: 07/13/24 11:06 Dose: Infused Documented By: LUKAS Vancomycin HCl 1,000 mg/ (Sodium Chloride) 270 mls @ 270 mls/hr IV Q12H [facility] Last Infusion: 07/13/24 09:44 Dose: Infused Documented By: LUKAS Ibuprofen (Ibuprofen 600 Mg Tablet) 600 mg PO TID PRN PRN Reason: Pain (Scale Score 1-3) Magnesium Hydroxide (Milk Of Magnesia 30 Ml Oral.Susp) 30 ml PO DAILY PRN PRN Reason: Constipation Melatonin (Melatonin 3 Mg Tablet) 6 mg PO BEDTIME PRN PRN Reason: Insomnia Ondansetron HCl (Ondansetron Hcl 4 Mg/2 Ml Vial) 4 mg IVPUSH Q8H PRN PRN Reason: Nausea and Vomiting Pharmacy Consult (Consult Rx Vancomycin Dosing) 1 each MISCELLANE DAILY PRN PRN Reason: Consult order Polyethylene Glycol (Polyethylene Glycol 3350 17 Gm Powd.Pack) 17 gm PO DAILY PRN PRN Reason: Constipation Sodium Chloride (0.9 % Sodium Chloride Flush 3 Ml Syringe) 3 ml IVFLUSH QSHIFT [facility] Last Admin: 07/13/24 08:43 Dose: 3 ml Documented By: LUKAS Labs 07/13/24 06:10 07/13/24 06:10 Labs: Laboratory Results - last 24 hr 07/13/24 06:10 MCV 87.0 MCH 29.5 MCHC 33.9 RDW 15.0 Plt Count 234 MPV 9.4 Immature Gran % (Auto) 1.1 H Neut % (Auto) 59.9 Lymph % (Auto) 22.7 [place] % (Auto) 8.9 Eos % (Auto) 6.4 H Baso % (Auto) 1.0 Lymph # (Auto) 1.6 [place] # (Auto) 0.6 Eos # (Auto) 0.5 H Baso # (Auto) 0.1 Abs Immat Gran (auto) 0.08 H Absolute Neuts (auto) 4.3 Absolute Nucleated RBC 0.000 Nucleated RBC % (auto) 0.0 Anion Gap 11 L Estim Creat Clear Calc 106.3 Estimated GFR > 60 Random Glucose 89 Calcium 8.8 Random Vancomycin 13.3 L Microbiology Microbiology Results: Microbiology 07/11/24 11:46 Blood Culture - Preliminary Blood - Venous No growth after 48 hours. 07/11/24 11:46 Blood Culture - Preliminary Blood - Venous Prelim: GPC Gram Stain only 07/11/24 12:40 Gram Stain - Final Foot Left Routine Culture - Preliminary Culture in progress. Procedures Date of Service Date of Service: 07/13/24 Progress Note: A&P Assessment and plan (1) Cellulitis of left foot: Status: Acute Assessment and Plan: Both ulcers are well healing and clean Cellulitis seems to have resolved I have changed his dressings - gauze applied and the foot wrapped in Duy roll Bed sore precautions He is also to be treated with long-term IV antibiotics for septic arthritis as per hospitalist service Time Spent With Patient Time: Total time managing care of this patient today ____ minutes. Quality Stroke Does the patient have a stroke diagnosis?: No VTE Prior VTE?: No VTE Risk Level:: Medical - moderate - high VTE Device Contraindication: Treatment Not Indicated VTE Drug Contraindication: N/A - Med Ordered
--- NOTE | 2024-07-13 15:53 | P.PNIM_ITS ---
Subjective Subjective Date of Service: 07/13/24 Interval History: Seen and examined this morning Follow-up for foot wound/septic arthropathy No overnight events Does not have pain Review of Systems Review of Systems: Yes all other systems are reviewed and are negative Constitutional Constitutional: Denies chills and Denies fever(s) Cardiovascular Cardiovascular: Denies chest pain and Denies palpitations Endocrine Endocrine: Denies palpitations Physical Exam 2 Vital Signs: Vital Signs: Last Vital Signs Temp 98 F 07/13/24 08:08 Pulse 59 07/13/24 08:08 Resp 18 07/13/24 08:08 BP 154/74 H 07/13/24 08:08 Pulse Ox 95 07/13/24 08:08 O2 Del Method Room Air 07/13/24 08:08 BMI result Body Mass Index 31.2 Const: General: no acute distress, alert and awake Nutritional Appearance: overweight Orientation/consciousness: patient oriented x3 Resp: Effort & Inspection: no respiratory distress and no use of accessory muscles Auscultation: clear to auscultation bilaterally GI: Inspection: No distended Palpation (GI): Soft to palpation Neuro: General: patient oriented x3 Extrem: Other: left foot clean/dry dressing Objective Data Active Medications Acetaminophen (Acetaminophen 325 Mg Tablet) 650 mg PO Q6H PRN PRN Reason: Pain, Mild 1-3,fever,headache Atorvastatin Calcium (Atorvastatin Calcium 80 Mg Tablet) 80 mg PO DAILY [facility] Last Admin: 07/13/24 08:49 Dose: 80 mg Documented By: LUKAS Baclofen (Baclofen 20 Mg Tablet) 20 mg PO BID [facility] Last Admin: 07/13/24 08:49 Dose: 20 mg Documented By: LUKAS Calcium Carbonate (Calcium Carbonate 750 Mg Tab.Chew) 750 mg PO Q4H PRN PRN Reason: Heartburn Docusate Sodium (Docusate Sodium 100 Mg Capsule) 100 mg PO BID [facility] Last Admin: 07/13/24 08:51 Dose: Not Given Documented By: LUKAS Non-Admin Reason: Patient Refused Enoxaparin Sodium (Enoxaparin Sodium 40 Mg/0.4 Ml Syringe) 40 mg SUBCUT Q24H [facility] Last Admin: 07/12/24 16:19 Dose: 40 mg Documented By: LUKAS Piperacillin Sod/Tazobactam (Sod 3.375 gm/ Sodium Chloride) 50 mls @ 100 mls/hr IV Q6H [facility] Last Infusion: 07/13/24 11:06 Dose: Infused Documented By: LUKAS Vancomycin HCl 1,000 mg/ (Sodium Chloride) 270 mls @ 270 mls/hr IV Q12H [facility] Last Infusion: 07/13/24 09:44 Dose: Infused Documented By: LUKAS Ibuprofen (Ibuprofen 600 Mg Tablet) 600 mg PO TID PRN PRN Reason: Pain (Scale Score 1-3) Magnesium Hydroxide (Milk Of Magnesia 30 Ml Oral.Susp) 30 ml PO DAILY PRN PRN Reason: Constipation Melatonin (Melatonin 3 Mg Tablet) 6 mg PO BEDTIME PRN PRN Reason: Insomnia Ondansetron HCl (Ondansetron Hcl 4 Mg/2 Ml Vial) 4 mg IVPUSH Q8H PRN PRN Reason: Nausea and Vomiting Pharmacy Consult (Consult Rx Vancomycin Dosing) 1 each MISCELLANE DAILY PRN PRN Reason: Consult order Polyethylene Glycol (Polyethylene Glycol 3350 17 Gm Powd.Pack) 17 gm PO DAILY PRN PRN Reason: Constipation Sodium Chloride (0.9 % Sodium Chloride Flush 3 Ml Syringe) 3 ml IVFLUSH QSHIFT [facility] Last Admin: 07/13/24 08:43 Dose: 3 ml Documented By: LUKAS Labs 07/13/24 06:10 07/13/24 06:10 Labs: Laboratory Results - last 24 hr 07/13/24 06:10 MCV 87.0 MCH 29.5 MCHC 33.9 RDW 15.0 Plt Count 234 MPV 9.4 Immature Gran % (Auto) 1.1 H Neut % (Auto) 59.9 Lymph % (Auto) 22.7 [place] % (Auto) 8.9 Eos % (Auto) 6.4 H Baso % (Auto) 1.0 Lymph # (Auto) 1.6 [place] # (Auto) 0.6 Eos # (Auto) 0.5 H Baso # (Auto) 0.1 Abs Immat Gran (auto) 0.08 H Absolute Neuts (auto) 4.3 Absolute Nucleated RBC 0.000 Nucleated RBC % (auto) 0.0 Anion Gap 11 L Estim Creat Clear Calc 106.3 Estimated GFR > 60 Random Glucose 89 Calcium 8.8 Random Vancomycin 13.3 L Microbiology Microbiology Results: Microbiology 07/11/24 11:46 Blood Culture - Preliminary Blood - Venous No growth after 48 hours. 07/11/24 11:46 Blood Culture - Preliminary Blood - Venous Prelim: GPC Gram Stain only 07/11/24 12:40 Gram Stain - Final Foot Left Routine Culture - Preliminary Culture in progress. Assessment and Plan (1) Septic arthritis of foot: Status: Acute Plan 59-year-old male with a past medical history of paraplegia, history of UTIs, who was admitted from home with increased redness warmth and drainage to left lateral distal sole of foot. Will be admitted for wound management and IV ABT. Medication reconciliation pending Cellulitis Left foot and stage 3 pressure wound MRI with contrast showing, Fluid and enhancement of the septic arthropathy of the 5th metatarsophalangeal joint with the adjacent plantar and lateral soft tissue ulceration. myositis, multifocal cellulitis, and tenosynovitis. Fasciitis could also be considered given multiple cup compartment fluid. Blood cultures 1/2 GPC possible [id number] final culture results wound cultures pending Continue Zosyn and Vancomycin Seen by ID-recommend 3-4 weeks of IV ertapenem and vancomycin Surgery following -recommend dry dressing Likely PICC line placement and to SNF for long-term IV antibiotic Follow Vancomycin trough mild hypernatremia follow BMP Paraplegia/History of UTI's/Neurogenic bladder Patient self caths twice daily Supportive care On Baclofen at home HLD statin Patient is a FULL CODE DVT Prophylaxis: Lovenox The patient will need hospital stay for treatment of cellulitis and septic arthropathy who need IV antibiotics treatment pending ID eval Quality Stroke Does the patient have a stroke diagnosis?: No VTE Prior VTE?: No VTE Risk Level:: Medical - moderate - high VTE Device Contraindication: Treatment Not Indicated VTE Drug Contraindication: N/A - Med Ordered
[2024-07-13 16:22] VITALS: BP 170/88; PULSE 52; RESP 18; TEMP 36.8; O2SAT 97
[2024-07-13] MEDS: Enoxaparin Sodium 40 MG/0.4 ML SYRINGE SUBCUT (16:37)
[2024-07-13 19:58] VITALS: BP 120/71; PULSE 68; RESP 18; TEMP 36.8; O2SAT 94
[2024-07-14] MEDS: 0.9 % Sodium Chloride Flush 3 ML SYRINGE IVFLUSH ×2 (00:10→19:38)
[2024-07-14] MEDS: bisacodyL 10 MG SUPP.RECT PR (00:10)
[2024-07-14] MEDS: Piperacillin Sodium/Tazobactam 3.375 GM in 0.9 % Sodium Chloride 50 ML IV ×4 (03:09→20:51)
[2024-07-14 04:00] VITALS: BP 152/76; PULSE 59; RESP 18; TEMP 36.6; O2SAT 96
[2024-07-14 06:24] LABS: Anion Gap 11 (12-20); Blood Urea Nitrogen 11 mg/dL (9-16); Calcium 8.8 mg/dL (8.4-10.2); Carbon Dioxide 27 mmol/L (22-29); Chloride 111 mmol/L (96-108); Creatinine Clr Calc Pharmacy 106.3; Estimated Glomerular Filt Rate > 60; Glucose Random 96 mg/dL (60-115); Potassium 3.6 mmol/L (3.3-5.1); Sodium 145 mmol/L (135-145)
[2024-07-14 06:26] LABS: Vancomycin Trough 13.6 mcg/mL (10.0-20.0)
--- NOTE | 2024-07-14 06:39 | HE.PHANOTE ---
VANCO DOSE ADJUSTMENT BASED ON SCR AND TROUGH OF 13.6 DOSE CONTINUED AT 1000 Q 12H. NEXT TROUGH 07/15 @ 13.6
[2024-07-14] MEDS: Baclofen 20 MG TABLET PO ×2 (07:42→20:51)
[2024-07-14] MEDS: Atorvastatin Calcium 80 MG TABLET PO (07:42)
[2024-07-14] MEDS: vancomycin HCL 1,000 MG in 0.9 % Sodium Chloride 250 ML 270 MG IV ×2 (07:42→19:38)
[2024-07-14 08:04] VITALS: BP 162/83; PULSE 56; RESP 18; TEMP 36.3; O2SAT 95
--- NOTE | 2024-07-14 11:48 | MHC.CLN ---
F/U DIET=REGULAR. ENSURE MAX BID TO PROMOTE SKIN INTEGRITY. SUPPLEMENT PROVIDES 300 KCALS, 60 G PROTEIN. SEEN BY WOUND RN. SKIN WITH STAGE IV TO RIGHT ISCHIUM AND STAGE 4 TO LEFT PLANTAR. INTAKE AT MEALS VARIABLE, 0-100%. CONTINUE CURRENT DIET AND SUPPLEMENT. FOLLOW FOR PO INTAKE AND SKIN INTEGRITY.
--- NOTE | 2024-07-14 13:39 | MHC.CM.PN ---
EMR reviewed and per MD rounds, pt is not medically cleared for discharge due to pending cultures, he also needs a PICC line (pending on Wednesday). This CM met with pt to discuss discharge plan, and he is in agreement with going to the [facility] in [place] tentatively on Wednesday after PICC line placement. This CM spoke with salesperson women's hats from the [place], Wendy Cardoso ([phone]), requested clinicals faxed to her at ([phone]) for their review.
--- NOTE | 2024-07-14 15:22 | P.PNIM_ITS ---
Subjective Subjective Date of Service: 07/14/24 Interval History: Seen and examined this morning Follow-up for foot wound/septic arthropathy No overnight events Does not have pain Constitutional Constitutional: Denies chills and Denies fever(s) Cardiovascular Cardiovascular: Denies chest pain and Denies palpitations Endocrine Endocrine: Denies palpitations Physical Exam 2 Vital Signs: Vital Signs: Last Vital Signs Temp 97.3 F 07/14/24 08:04 Pulse 56 07/14/24 08:04 Resp 18 07/14/24 08:04 BP 162/83 H 07/14/24 08:04 Pulse Ox 95 07/14/24 08:04 O2 Del Method Room Air 07/14/24 08:04 BMI result Body Mass Index 31.2 Const: General: no acute distress, alert and awake Nutritional Appearance: overweight Orientation/consciousness: patient oriented x3 Resp: Effort & Inspection: no respiratory distress and no use of accessory muscles Auscultation: clear to auscultation bilaterally GI: Inspection: No distended Palpation (GI): Soft to palpation Neuro: General: patient oriented x3 Extrem: Other: left foot clean/dry dressing Objective Data Active Medications Acetaminophen (Acetaminophen 325 Mg Tablet) 650 mg PO Q6H PRN PRN Reason: Pain, Mild 1-3,fever,headache Atorvastatin Calcium (Atorvastatin Calcium 80 Mg Tablet) 80 mg PO DAILY [facility] Last Admin: 07/14/24 07:42 Dose: 80 mg Documented By: SETH Baclofen (Baclofen 20 Mg Tablet) 20 mg PO BID [facility] Last Admin: 07/14/24 07:42 Dose: 20 mg Documented By: SETH Calcium Carbonate (Calcium Carbonate 750 Mg Tab.Chew) 750 mg PO Q4H PRN PRN Reason: Heartburn Docusate Sodium (Docusate Sodium 100 Mg Capsule) 100 mg PO BID [facility] Last Admin: 07/14/24 08:56 Dose: Not Given Documented By: SETH Non-Admin Reason: Patient Refused Enoxaparin Sodium (Enoxaparin Sodium 40 Mg/0.4 Ml Syringe) 40 mg SUBCUT Q24H [facility] Last Admin: 07/13/24 16:37 Dose: 40 mg Documented By: BROJulissa Piperacillin Sod/Tazobactam (Sod 3.375 gm/ Sodium Chloride) 50 mls @ 100 mls/hr IV Q6H [facility] Last Infusion: 07/14/24 10:06 Dose: Infused Documented By: SETH Vancomycin HCl 1,000 mg/ (Sodium Chloride) 270 mls @ 270 mls/hr IV Q12H [facility] Last Infusion: 07/14/24 08:50 Dose: Infused Documented By: SETH Ibuprofen (Ibuprofen 600 Mg Tablet) 600 mg PO TID PRN PRN Reason: Pain (Scale Score 1-3) Magnesium Hydroxide (Milk Of Magnesia 30 Ml Oral.Susp) 30 ml PO DAILY PRN PRN Reason: Constipation Melatonin (Melatonin 3 Mg Tablet) 6 mg PO BEDTIME PRN PRN Reason: Insomnia Ondansetron HCl (Ondansetron Hcl 4 Mg/2 Ml Vial) 4 mg IVPUSH Q8H PRN PRN Reason: Nausea and Vomiting Pharmacy Consult (Consult Rx Vancomycin Dosing) 1 each MISCELLANE DAILY PRN PRN Reason: Consult order Polyethylene Glycol (Polyethylene Glycol 3350 17 Gm Powd.Pack) 17 gm PO DAILY PRN PRN Reason: Constipation Sodium Chloride (0.9 % Sodium Chloride Flush 3 Ml Syringe) 3 ml IVFLUSH QSHIFT [facility] Last Admin: 07/14/24 12:12 Dose: Not Given Documented By: SETH Non-Admin Reason: Previously Administered Labs 07/13/24 06:10 07/14/24 05:59 Labs: Laboratory Results - last 24 hr 07/14/24 05:59 Anion Gap 11 L Estim Creat Clear Calc 106.3 Estimated GFR > 60 Random Glucose 96 Calcium 8.8 Vancomycin Trough 13.6 Microbiology Microbiology Results: Microbiology 07/11/24 11:46 Blood Culture - Preliminary Blood - Venous Prelim: GPC Gram Stain only 07/11/24 12:40 Gram Stain - Final Foot Left Routine Culture - Preliminary Staphylococcus aureus 07/11/24 11:46 Blood Culture - Preliminary Blood - Venous No growth after 48 hours. Assessment and Plan (1) Septic arthritis of foot: Status: Acute Plan 59-year-old male with a past medical history of paraplegia, history of UTIs, who was admitted from home with increased redness warmth and drainage to left lateral distal sole of foot. Will be admitted for wound management and IV ABT. Medication reconciliation pending Cellulitis Left foot and stage 3 pressure wound MRI with contrast showing, Fluid and enhancement of the septic arthropathy of the 5th metatarsophalangeal joint with the adjacent plantar and lateral soft tissue ulceration. myositis, multifocal cellulitis, and tenosynovitis. Fasciitis could also be considered given multiple cup compartment fluid. Blood cultures 1/2 GPC possible [id number] final culture results still pending; d/w micro, will not have final result until tomorrow (wednesday) wound culture growing staph aureus Continue Zosyn and Vancomycin Seen by ID-recommend 3-4 weeks of IV ertapenem and vancomycin Surgery following -s/p debridement. recommend dry dressings, no further debridement required will need PICC line placement and SNF for long-term IV antibiotic Follow Vancomycin trough mild hypernatremia resolved Paraplegia/History of UTI's/Neurogenic bladder Patient self caths twice daily Supportive care On Baclofen at home right ischium stage 4 pressure injury. POA management as per wound care nurse - see full note for recommendations HLD statin Patient is a FULL CODE DVT Prophylaxis: Lovenox The patient will need hospital stay for treatment of cellulitis and septic arthropathy who need IV antibiotics, PICC line and placement Quality Stroke Does the patient have a stroke diagnosis?: No VTE Prior VTE?: No VTE Risk Level:: Medical - moderate - high VTE Device Contraindication: Treatment Not Indicated VTE Drug Contraindication: N/A - Med Ordered
[2024-07-14] MEDS: Enoxaparin Sodium 40 MG/0.4 ML SYRINGE SUBCUT (15:32)
[2024-07-14 16:07] VITALS: BP 123/66; PULSE 82; RESP 18; TEMP 37.1; O2SAT 94
[2024-07-14 19:50] VITALS: BP 132/65; PULSE 67; RESP 18; TEMP 37; O2SAT 94
[2024-07-15 03:22] VITALS: BP 128/64; PULSE 54; RESP 18; TEMP 36.6; O2SAT 93
[2024-07-15] MEDS: Piperacillin Sodium/Tazobactam 3.375 GM in 0.9 % Sodium Chloride 50 ML IV ×4 (03:36→21:49)
[2024-07-15 06:57] LABS: Creatinine Clr Calc Pharmacy 91.7; Estimated Glomerular Filt Rate > 60
[2024-07-15 07:55] VITALS: BP 142/85; PULSE 77; RESP 18; TEMP 36.9; O2SAT 97
[2024-07-15 08:08] VITALS: BP 154/86; PULSE 55; RESP 14; TEMP 36.9
[2024-07-15] MEDS: vancomycin HCL 1,000 MG in 0.9 % Sodium Chloride 250 ML 270 MG IV ×2 (08:38→19:46)
[2024-07-15] MEDS: Atorvastatin Calcium 80 MG TABLET PO (08:38)
[2024-07-15] MEDS: Baclofen 20 MG TABLET PO ×2 (08:38→20:49)
[2024-07-15] MEDS: 0.9 % Sodium Chloride Flush 3 ML SYRINGE IVFLUSH ×3 (08:47→20:49)
--- NOTE | 2024-07-15 11:36 | P.PNIM_ITS ---
Subjective Subjective Date of Service: 07/15/24 Interval History: Seen and examined this morning Follow-up for foot wound/septic arthropathy No overnight events Does not have pain Constitutional Constitutional: Denies chills and Denies fever(s) Cardiovascular Cardiovascular: Denies chest pain and Denies palpitations Endocrine Endocrine: Denies palpitations Physical Exam 2 Vital Signs: Vital Signs: Last Vital Signs Temp 98.4 F 07/15/24 08:08 Pulse 55 07/15/24 08:08 Resp 14 07/15/24 08:08 BP 154/86 H 07/15/24 08:08 Pulse Ox 97 07/15/24 07:55 O2 Del Method Room Air 07/15/24 07:55 BMI result Body Mass Index 31.2 Appearing in no acute distress lung sounds are clear to auscultation heart regular rate rhythm, clear S1, S2 positive bowel sounds, abdomen is soft, nontender neuro patient is alert x3, no focal deficits Objective Data Active Medications Acetaminophen (Acetaminophen 325 Mg Tablet) 650 mg PO Q6H PRN PRN Reason: Pain, Mild 1-3,fever,headache Atorvastatin Calcium (Atorvastatin Calcium 80 Mg Tablet) 80 mg PO DAILY [facility] BEDS AT [facility] Last Admin: 07/15/24 08:38 Dose: 80 mg Documented By: TANIYA Baclofen (Baclofen 20 Mg Tablet) 20 mg PO BID [facility] 234 BEDS AT [facility] Last Admin: 07/15/24 08:38 Dose: 20 mg Documented By: TANIYA Calcium Carbonate (Calcium Carbonate 750 Mg Tab.Chew) 750 mg PO Q4H PRN PRN Reason: Heartburn Docusate Sodium (Docusate Sodium 100 Mg Capsule) 100 mg PO BID [facility] 234 BEDS AT [facility] Last Admin: 07/15/24 08:38 Dose: Not Given Documented By: TANIYA Non-Admin Reason: Patient Refused Enoxaparin Sodium (Enoxaparin Sodium 40 Mg/0.4 Ml Syringe) 40 mg SUBCUT Q24H [facility] 234 BEDS AT [facility] Last Admin: 07/14/24 15:32 Dose: 40 mg Documented By: SETH Piperacillin Sod/Tazobactam (Sod 3.375 gm/ Sodium Chloride) 50 mls @ 100 mls/hr IV Q6H [facility] 234 BEDS AT [facility] Last Infusion: 07/15/24 10:47 Dose: Infused Documented By: TANIYA Vancomycin HCl 1,000 mg/ (Sodium Chloride) 270 mls @ 270 mls/hr IV Q12H [facility]CLUDE 234 BEDS AT THE [facility] Last Infusion: 07/15/24 09:51 Dose: Infused Documented By: TANIYA Ibuprofen (Ibuprofen 600 Mg Tablet) 600 mg PO TID PRN PRN Reason: Pain (Scale Score 1-3) Magnesium Hydroxide (Milk Of Magnesia 30 Ml Oral.Susp) 30 ml PO DAILY PRN PRN Reason: Constipation Melatonin (Melatonin 3 Mg Tablet) 6 mg PO BEDTIME PRN PRN Reason: Insomnia Ondansetron HCl (Ondansetron Hcl 4 Mg/2 Ml Vial) 4 mg IVPUSH Q8H PRN PRN Reason: Nausea and Vomiting Pharmacy Consult (Consult Rx Vancomycin Dosing) 1 each MISCELLANE DAILY PRN PRN Reason: Consult order Polyethylene Glycol (Polyethylene Glycol 3350 17 Gm Powd.Pack) 17 gm PO DAILY PRN PRN Reason: Constipation Sodium Chloride (0.9 % Sodium Chloride Flush 3 Ml Syringe) 3 ml IVFLUSH QSHIFT COUNTS [facility]CLUDE 234 BEDS AT THE [facility] Last Admin: 07/15/24 08:47 Dose: 3 ml Documented By: TANIYA Labs 07/13/24 06:10 07/15/24 06:06 Labs: Laboratory Results - last 24 hr 07/15/24 07/15/24 05:40 06:06 Hold Purple Top SEE NOTE Estim Creat Clear Calc 91.7 Estimated GFR > 60 Vancomycin Trough 14.0 Microbiology Microbiology Results: Microbiology 07/11/24 11:46 Blood Culture - Preliminary Blood - Venous Prelim: GPC Gram Stain only 07/11/24 12:40 Gram Stain - Final Foot Left Routine Culture - Final Staphylococcus aureus Assessment and Plan (1) Septic arthritis of foot: Status: Acute Plan 59-year-old male with a past medical history of paraplegia, history of UTIs, who was admitted from home with increased redness warmth and drainage to left lateral distal sole of foot. Will be admitted for wound management and IV ABT. Medication reconciliation pending Cellulitis Left foot and stage 3 pressure wound MRI with contrast showing, Fluid and enhancement of the septic arthropathy of the 5th metatarsophalangeal joint with the adjacent plantar and lateral soft tissue ulceration. myositis, multifocal cellulitis, and tenosynovitis. Fasciitis could also be considered given multiple cup compartment fluid. Blood cultures 1/2 GPC possible [id number] final culture results still pending; d/w micro, will not have final result until tomorrow (wednesday) wound culture growing staph aureus Continue Zosyn and Vancomycin Seen by ID-recommend 3-4 weeks of IV ertapenem and vancomycin Surgery following -s/p debridement. recommend dry dressings, no further debridement required will need PICC line placement and SNF for long-term IV antibiotic Follow Vancomycin trough mild hypernatremia resolved Paraplegia/History of UTI's/Neurogenic bladder Patient self caths twice daily Supportive care On Baclofen at home right ischium stage 4 pressure injury. POA management as per wound care nurse - see full note for recommendations HLD statin Patient is a FULL CODE DVT Prophylaxis: Lovenox The patient will need hospital stay for treatment of cellulitis and septic arthropathy who need IV antibiotics, PICC line and placement Quality Stroke Does the patient have a stroke diagnosis?: No VTE Prior VTE?: No VTE Risk Level:: Medical - moderate - high VTE Device Contraindication: Treatment Not Indicated VTE Drug Contraindication: N/A - Med Ordered
[2024-07-15 16:00] VITALS: BP 120/59; PULSE 91; RESP 18; TEMP 36.8; O2SAT 95
[2024-07-15] MEDS: Enoxaparin Sodium 40 MG/0.4 ML SYRINGE SUBCUT (16:46)
[2024-07-15 20:00] VITALS: BP 116/68; PULSE 75; RESP 18; TEMP 36.8; O2SAT 93
[2024-07-15] MEDS: Docusate Sodium 100 MG CAPSULE PO (20:49)
[2024-07-16] MEDS: bisacodyL 10 MG SUPP.RECT PR (02:15)
[2024-07-16] MEDS: Piperacillin Sodium/Tazobactam 3.375 GM in 0.9 % Sodium Chloride 50 ML IV ×4 (03:31→22:20)
[2024-07-16 03:58] VITALS: BP 141/82; PULSE 64; RESP 18; TEMP 36.3; O2SAT 95
[2024-07-16 06:39] LABS: Creatinine Clr Calc Pharmacy 96.4; Estimated Glomerular Filt Rate > 60
--- NOTE | 2024-07-16 06:55 | HE.PHANOTE ---
Re: Ankit Renal function is fluctuating but still in good condition. Trough returned at 15, pt is therapeutic. Continue current dose of 1,000 mg q12h with predicted AUC 444, predicted trough 13.7. Next trough 07/17 @ 0600.
[2024-07-16 07:22] VITALS: BP 150/58; PULSE 58; RESP 16; TEMP 36.8; O2SAT 96
[2024-07-16] MEDS: Atorvastatin Calcium 80 MG TABLET PO (08:21)
[2024-07-16] MEDS: Baclofen 20 MG TABLET PO ×2 (08:22→19:52)
[2024-07-16] MEDS: vancomycin HCL 1,000 MG in 0.9 % Sodium Chloride 250 ML 270 MG IV ×2 (08:24→19:51)
[2024-07-16] MEDS: 0.9 % Sodium Chloride Flush 3 ML SYRINGE IVFLUSH ×3 (08:24→22:21)
--- NOTE | 2024-07-16 09:19 | P.PNIM_ITS ---
Subjective Subjective Date of Service: 07/16/24 Interval History: Follow-up for foot wound/septic arthropathy No overnight events Does not have pain Constitutional Constitutional: Denies chills and Denies fever(s) Cardiovascular Cardiovascular: Denies chest pain and Denies palpitations Endocrine Endocrine: Denies palpitations Physical Exam 2 Vital Signs: Vital Signs: Last Vital Signs Temp 98.2 F 07/16/24 07:22 Pulse 58 07/16/24 07:22 Resp 16 07/16/24 07:22 BP 150/58 H 07/16/24 07:22 Pulse Ox 96 07/16/24 07:22 O2 Del Method Room Air 07/16/24 07:22 BMI result Body Mass Index 31.2 Appearing in no acute distress lung sounds are clear to auscultation heart regular rate rhythm, clear S1, S2 positive bowel sounds, abdomen is soft, nontender neuro patient is alert x3, no focal deficits paraplegia Objective Data Active Medications Acetaminophen (Acetaminophen 325 Mg Tablet) 650 mg PO Q6H PRN PRN Reason: Pain, Mild 1-3,fever,headache Atorvastatin Calcium (Atorvastatin Calcium 80 Mg Tablet) 80 mg PO DAILY [facility] Last Admin: 07/16/24 08:21 Dose: 80 mg Documented By: ASHISH Baclofen (Baclofen 20 Mg Tablet) 20 mg PO BID [facility] Last Admin: 07/16/24 08:22 Dose: 20 mg Documented By: ASHISH Bisacodyl (Bisacodyl 10 Mg Supp.Rect) 10 mg [place] BEDTIME PRN PRN Reason: Constipation Last Admin: 07/16/24 02:15 Dose: 10 mg Documented By: HELLEN Calcium Carbonate (Calcium Carbonate 750 Mg Tab.Chew) 750 mg PO Q4H PRN PRN Reason: Heartburn Docusate Sodium (Docusate Sodium 100 Mg Capsule) 100 mg PO BID [facility] Last Admin: 07/16/24 08:23 Dose: Not Given Documented By: ASHISH Non-Admin Reason: Patient Refused Enoxaparin Sodium (Enoxaparin Sodium 40 Mg/0.4 Ml Syringe) 40 mg SUBCUT Q24H [facility] Last Admin: 07/15/24 16:46 Dose: 40 mg Documented By: TANIYA Piperacillin Sod/Tazobactam (Sod 3.375 gm/ Sodium Chloride) 50 mls @ 100 mls/hr IV Q6H [facility] Last Infusion: 07/16/24 04:02 Dose: Infused Documented By: HELLEN Vancomycin HCl 1,000 mg/ (Sodium Chloride) 270 mls @ 270 mls/hr IV Q12H [facility] Last Admin: 07/16/24 08:24 Dose: 270 mls/hr Documented By: ASHISH Ibuprofen (Ibuprofen 600 Mg Tablet) 600 mg PO TID PRN PRN Reason: Pain (Scale Score 1-3) Magnesium Hydroxide (Milk Of Magnesia 30 Ml Oral.Susp) 30 ml PO DAILY PRN PRN Reason: Constipation Melatonin (Melatonin 3 Mg Tablet) 6 mg PO BEDTIME PRN PRN Reason: Insomnia Ondansetron HCl (Ondansetron Hcl 4 Mg/2 Ml Vial) 4 mg IVPUSH Q8H PRN PRN Reason: Nausea and Vomiting Pharmacy Consult (Consult Rx Vancomycin Dosing) 1 each MISCELLANE DAILY PRN PRN Reason: Consult order Polyethylene Glycol (Polyethylene Glycol 3350 17 Gm Powd.Pack) 17 gm PO DAILY PRN PRN Reason: Constipation Sodium Chloride (0.9 % Sodium Chloride Flush 3 Ml Syringe) 3 ml IVFLUSH QSHIFT [facility] Last Admin: 07/16/24 08:24 Dose: 3 ml Documented By: ASHISH Labs 07/13/24 06:10 07/16/24 06:16 Labs: Laboratory Results - last 24 hr 07/16/24 06:16 Estim Creat Clear Calc 96.4 Estimated GFR > 60 Random Vancomycin 15.0 Microbiology Microbiology Results: Microbiology 07/11/24 11:46 Blood Culture - Preliminary Blood - Venous Prelim: GPC Gram Stain only 07/11/24 12:40 Gram Stain - Final Foot Left Routine Culture - Final Staphylococcus aureus Assessment and Plan (1) Septic arthritis of foot: Status: Acute Plan 59-year-old male with a past medical history of paraplegia, history of UTIs, who was admitted from home with increased redness warmth and drainage to left lateral distal sole of foot. Will be admitted for wound management and IV ABT. Medication reconciliation pending Cellulitis Left foot and stage 3 pressure wound MRI with contrast showing, Fluid and enhancement of the septic arthropathy of the 5th metatarsophalangeal joint with the adjacent plantar and lateral soft tissue ulceration. myositis, multifocal cellulitis, and tenosynovitis. Fasciitis could also be considered given multiple cup compartment fluid. Blood cultures 1/2 GPC possible [id number] final culture results still pending wound culture growing staph aureus Continue Zosyn and Vancomycin Seen by ID-recommend 3-4 weeks of IV ertapenem and vancomycin Surgery following>s/p debridement. recommend dry dressings, no further debridement required will need PICC line placement and SNF for long-term IV antibiotic Follow Vancomycin trough Mild hypernatremia resolved Paraplegia/History of UTI's/Neurogenic bladder Patient self caths twice daily Supportive care On Baclofen at home Right ischium stage 4 pressure injury. POA management as per wound care nurse - see full note for recommendations HLD statin Patient is a FULL CODE DVT Prophylaxis: Lovenox Quality Stroke Does the patient have a stroke diagnosis?: No VTE Prior VTE?: No VTE Risk Level:: Medical - moderate - high VTE Device Contraindication: Treatment Not Indicated VTE Drug Contraindication: N/A - Med Ordered
[2024-07-16 16:00] VITALS: BP 146/68; PULSE 67; RESP 18; TEMP 36.7; O2SAT 97
[2024-07-16] MEDS: Enoxaparin Sodium 40 MG/0.4 ML SYRINGE SUBCUT (16:08)
[2024-07-16] MEDS: Docusate Sodium 100 MG CAPSULE PO (19:52)
[2024-07-16 20:00] VITALS: BP 140/71; PULSE 56; RESP 16; TEMP 36.7; O2SAT 96
[2024-07-17 04:00] VITALS: BP 157/88; PULSE 58; RESP 17; TEMP 36.7; O2SAT 96
[2024-07-17] MEDS: Piperacillin Sodium/Tazobactam 3.375 GM in 0.9 % Sodium Chloride 50 ML IV ×4 (04:26→21:42)
[2024-07-17 06:19] LABS: Vancomycin Random 16.2 mcg/mL (15-20)
[2024-07-17 06:20] LABS: Creatinine Clr Calc Pharmacy 108.8; Estimated Glomerular Filt Rate > 60
--- NOTE | 2024-07-17 06:34 | HE.PHANOTE ---
Re: Vanco Renal function fluctuating. Trough returned at 16.2. Continue current dose of 1,000 mg q12h, predicted AUC 409, predicted trough 12.6. Next trough 07/18 @ 0600.
[2024-07-17 07:38] VITALS: BP 176/95; PULSE 67; RESP 16; TEMP 36.5; O2SAT 96
[2024-07-17 08:22] VITALS: BP 148/82
[2024-07-17] MEDS: Atorvastatin Calcium 80 MG TABLET PO (08:23)
[2024-07-17] MEDS: Docusate Sodium 100 MG CAPSULE PO (08:23)
[2024-07-17] MEDS: Baclofen 20 MG TABLET PO ×2 (08:23→21:38)
[2024-07-17] MEDS: 0.9 % Sodium Chloride Flush 3 ML SYRINGE IVFLUSH ×3 (08:24→23:02)
[2024-07-17] MEDS: vancomycin HCL 1,000 MG in 0.9 % Sodium Chloride 250 ML 270 MG IV ×2 (08:24→19:31)
--- NOTE | 2024-07-17 08:46 | HO.PM.IMPN ---
Subjective Subjective Date of Service: 07/17/24 Interval History: Follow-up for foot wound/septic arthropathy No overnight events Does not have pain Constitutional Constitutional: Denies chills and Denies fever(s) Cardiovascular Cardiovascular: Denies chest pain and Denies palpitations Endocrine Endocrine: Denies palpitations Physical Exam Vital Signs: Vital Signs: Last Vital Signs Temp 97.7 F 07/17/24 07:38 Pulse 67 07/17/24 07:38 Resp 16 07/17/24 07:38 BP 148/82 H 07/17/24 08:22 Pulse Ox 96 07/17/24 07:38 O2 Del Method Room Air 07/17/24 07:38 BMI result Body Mass Index 31.2 Appearing in no acute distress lung sounds are clear to auscultation heart regular rate rhythm, clear S1, S2 positive bowel sounds, abdomen is soft, nontender neuro patient is alert x3, no focal deficits paraplegia Objective Data Active Medications Acetaminophen (Acetaminophen 325 Mg Tablet) 650 mg PO Q6H PRN PRN Reason: Pain, Mild 1-3,fever,headache Atorvastatin Calcium (Atorvastatin Calcium 80 Mg Tablet) 80 mg PO DAILY REPLACED BY [facility] Last Admin: 07/17/24 08:23 Dose: 80 mg Documented By: TIN Baclofen (Baclofen 20 Mg Tablet) 20 mg PO BID REPLACED BY [facility] Last Admin: 07/17/24 08:23 Dose: 20 mg Documented By: TIN Bisacodyl (Bisacodyl 10 Mg Supp.Rect) 10 mg [place] BEDTIME PRN PRN Reason: Constipation Last Admin: 07/16/24 02:15 Dose: 10 mg Documented By: HELLEN Calcium Carbonate (Calcium Carbonate 750 Mg Tab.Chew) 750 mg PO Q4H PRN PRN Reason: Heartburn Docusate Sodium (Docusate Sodium 100 Mg Capsule) 100 mg PO BID REPLACED BY [facility] Last Admin: 07/17/24 08:23 Dose: 100 mg Documented By: TIN Enoxaparin Sodium (Enoxaparin Sodium 40 Mg/0.4 Ml Syringe) 40 mg SUBCUT Q24H REPLACED BY [facility] Last Admin: 07/16/24 16:08 Dose: 40 mg Documented By: ASHISH Piperacillin Sod/Tazobactam (Sod 3.375 gm/ Sodium Chloride) 50 mls @ 100 mls/hr IV Q6H REPLACED BY [facility] Last Infusion: 07/17/24 05:04 Dose: Infused Documented By: LEONARDO Vancomycin HCl 1,000 mg/ (Sodium Chloride) 270 mls @ 270 mls/hr IV Q12H REPLACED BY [facility] Last Admin: 07/17/24 08:24 Dose: 270 mls/hr Documented By: TIN Ibuprofen (Ibuprofen 600 Mg Tablet) 600 mg PO TID PRN PRN Reason: Pain (Scale Score 1-3) Magnesium Hydroxide (Milk Of Magnesia 30 Ml Oral.Susp) 30 ml PO DAILY PRN PRN Reason: Constipation Melatonin (Melatonin 3 Mg Tablet) 6 mg PO BEDTIME PRN PRN Reason: Insomnia Ondansetron HCl (Ondansetron Hcl 4 Mg/2 Ml Vial) 4 mg IVPUSH Q8H PRN PRN Reason: Nausea and Vomiting Pharmacy Consult (Consult Rx Vancomycin Dosing) 1 each MISCELLANE DAILY PRN PRN Reason: Consult order Polyethylene Glycol (Polyethylene Glycol 3350 17 Gm Powd.Pack) 17 gm PO DAILY PRN PRN Reason: Constipation Sodium Chloride (0.9 % Sodium Chloride Flush 3 Ml Syringe) 3 ml IVFLUSH QSHIFT REPLACED BY [facility] Last Admin: 07/17/24 08:24 Dose: 3 ml Documented By: TIN Labs 07/13/24 06:10 07/17/24 05:55 Labs: Laboratory Results - last 24 hr 07/17/24 05:55 Hold Purple Top SEE NOTE Estim Creat Clear Calc 108.8 Estimated GFR > 60 Random Vancomycin 16.2 Microbiology Microbiology Results: Microbiology 07/11/24 11:46 Blood Culture - Final Blood - Venous No growth after 5 days. 07/11/24 11:46 Blood Culture - Preliminary Blood - Venous Prelim: GPC Gram Stain only Assessment and Plan (1) Septic arthritis of foot: Status: Acute Plan 59-year-old male with a past medical history of paraplegia, history of UTIs, who was admitted from home with increased redness warmth and drainage to left lateral distal sole of foot. Will be admitted for wound management and IV ABT. Medication reconciliation pending Cellulitis Left foot and stage 3 pressure wound MRI with contrast showing, Fluid and enhancement of the septic arthropathy of the 5th metatarsophalangeal joint with the adjacent plantar and lateral soft tissue ulceration. myositis, multifocal cellulitis, and tenosynovitis. Fasciitis could also be considered given multiple cup compartment fluid. Blood cultures 1/2 GPC possible [id number] final culture results still pending wound culture growing staph aureus Continue Zosyn and Vancomycin Seen by ID-recommend 3-4 weeks of IV ertapenem and vancomycin Surgery following>s/p debridement. recommend dry dressings, no further debridement required PICC line placement and SNF for long-term IV antibiotic Mild hypernatremia resolved Paraplegia/History of UTI's/Neurogenic bladder Patient self caths twice daily Supportive care On Baclofen at home Right ischium stage 4 pressure injury. POA management as per wound care nurse - see full note for recommendations HLD statin Patient is a FULL CODE DVT Prophylaxis: Lovenox Plan is for tx to [place] rehab facility Quality Stroke Does the patient have a stroke diagnosis?: No VTE Prior VTE?: No VTE Risk Level:: Medical - moderate - high VTE Device Contraindication: Treatment Not Indicated VTE Drug Contraindication: N/A - Med Ordered
--- NOTE | 2024-07-17 11:45 | MHC.CM.PN ---
EMR REVIEWED, PT W/OSTEO AWAITING PICC LINE AND MICRO WHICH WILL BE AVAILABLE AFTER 3:30PM, CM RETURNED CALL TO [facility] [phone] WHO REPORTED [facility] [place] [facility] AT THE VERY LATEST THEIR MD'S LEAVE AT 4PM, IF MICRO COMES BACK CONTAMINUTE ANTIC PT WILL BE ABLE TO DC TOMORROW 09/17, CM TO FOLLOW UP W[facility] FOR TRAN[facility].
--- NOTE | 2024-07-17 14:01 | MHC.CLN ---
F/U DIET=REGULAR. ENSURE MAX BID TO PROMOTE WOUND HEALING. SUPPLEMENT PROVIDES 300 KCALS, 60 G PROTEIN. SKIN WITH STAGE IV TO RIGHT ISCHIUM AND STAGE IV TO LEFT PLANTAR. INTAKE AT MEALS VARIABLE, 50-100%. CONTINUE CURRENT DIET AND SUPPLEMENT. FOLLOW FOR PO INTAKE AND SKIN INTEGRITY.
[2024-07-17 16:00] VITALS: BP 159/86; PULSE 56; RESP 18; TEMP 36.7; O2SAT 96
--- NOTE | 2024-07-17 16:00 | HO.SKINPHOTO ---
Location: Left Heel Location: Left Plantar Location: Right Ischium Wound care performed on all wounds per order. Preventative foam dressing applied to sacrum. Heels floating, pillows used to reposition patient, specialty bed operating.
[2024-07-17] MEDS: Enoxaparin Sodium 40 MG/0.4 ML SYRINGE SUBCUT (17:11)
[2024-07-17 19:27] VITALS: BP 131/71; PULSE 74; RESP 18; TEMP 36.7; O2SAT 96
[2024-07-17] MEDS: bisacodyL 10 MG SUPP.RECT PR (22:01)
[2024-07-18 04:00] VITALS: BP 144/72; PULSE 64; RESP 18; TEMP 36.7; O2SAT 96
[2024-07-18] MEDS: Piperacillin Sodium/Tazobactam 3.375 GM in 0.9 % Sodium Chloride 50 ML IV ×4 (04:16→21:21)
[2024-07-18 07:30] LABS: Vancomycin Random 15.9 mcg/mL (15-20)
[2024-07-18 07:31] LABS: Creatinine Clr Calc Pharmacy 97.5; Estimated Glomerular Filt Rate > 60
[2024-07-18 07:52] VITALS: BP 155/85; PULSE 65; RESP 16; TEMP 36.5; O2SAT 96
--- NOTE | 2024-07-18 08:08 | P.PNIM_ITS ---
Subjective Subjective Date of Service: 07/18/24 Interval History: Follow-up for foot wound/septic arthropathy No overnight events Does not have pain Constitutional Constitutional: Denies chills and Denies fever(s) Cardiovascular Cardiovascular: Denies chest pain and Denies palpitations Endocrine Endocrine: Denies palpitations Physical Exam 2 Vital Signs: Vital Signs: Last Vital Signs Temp 97.7 F 07/18/24 07:52 Pulse 65 07/18/24 07:52 Resp 16 07/18/24 07:52 BP 155/85 H 07/18/24 07:52 Pulse Ox 96 07/18/24 07:52 O2 Del Method Room Air 07/18/24 07:52 BMI result Body Mass Index 31.2 Appearing in no acute distress lung sounds are clear to auscultation heart regular rate rhythm, clear S1, S2 positive bowel sounds, abdomen is soft, nontender neuro patient is alert x3, no focal deficits Objective Data Active Medications Acetaminophen (Acetaminophen 325 Mg Tablet) 650 mg PO Q6H PRN PRN Reason: Pain, Mild 1-3,fever,headache Atorvastatin Calcium (Atorvastatin Calcium 80 Mg Tablet) 80 mg PO DAILY [facility] Last Admin: 07/17/24 08:23 Dose: 80 mg Documented By: COLBURMckenna Baclofen (Baclofen 20 Mg Tablet) 20 mg PO BID [facility] Last Admin: 07/17/24 21:38 Dose: 20 mg Documented By: CHATA Bisacodyl (Bisacodyl 10 Mg Supp.Rect) 10 mg [place] BEDTIME PRN PRN Reason: Constipation Last Admin: 07/17/24 22:01 Dose: 10 mg Documented By: CHATA Calcium Carbonate (Calcium Carbonate 750 Mg Tab.Chew) 750 mg PO Q4H PRN PRN Reason: Heartburn Docusate Sodium (Docusate Sodium 100 Mg Capsule) 100 mg PO BID [facility] Last Admin: 07/17/24 21:45 Dose: Not Given Documented By: CHATA Non-Admin Reason: pt refused; requesting dulcolax Enoxaparin Sodium (Enoxaparin Sodium 40 Mg/0.4 Ml Syringe) 40 mg SUBCUT Q24H [facility] Last Admin: 07/17/24 17:11 Dose: 40 mg Documented By: LUCIAME Piperacillin Sod/Tazobactam (Sod 3.375 gm/ Sodium Chloride) 50 mls @ 100 mls/hr IV Q6H [facility] Last Infusion: 07/18/24 04:47 Dose: Infused Documented By: CHATA Vancomycin HCl 1,000 mg/ (Sodium Chloride) 270 mls @ 270 mls/hr IV Q12H [facility] Last Infusion: 07/17/24 20:32 Dose: Infused Documented By: CHATA Ibuprofen (Ibuprofen 600 Mg Tablet) 600 mg PO TID PRN PRN Reason: Pain (Scale Score 1-3) Magnesium Hydroxide (Milk Of Magnesia 30 Ml Oral.Susp) 30 ml PO DAILY PRN PRN Reason: Constipation Melatonin (Melatonin 3 Mg Tablet) 6 mg PO BEDTIME PRN PRN Reason: Insomnia Ondansetron HCl (Ondansetron Hcl 4 Mg/2 Ml Vial) 4 mg IVPUSH Q8H PRN PRN Reason: Nausea and Vomiting Pharmacy Consult (Consult Rx Vancomycin Dosing) 1 each MISCELLANE DAILY PRN PRN Reason: Consult order Polyethylene Glycol (Polyethylene Glycol 3350 17 Gm Powd.Pack) 17 gm PO DAILY PRN PRN Reason: Constipation Sodium Chloride (0.9 % Sodium Chloride Flush 3 Ml Syringe) 3 ml IVFLUSH QSHIFT [facility] Last Admin: 07/17/24 23:02 Dose: 3 ml Documented By: CHATA Labs 07/13/24 06:10 07/18/24 06:08 Labs: Laboratory Results - last 24 hr 07/18/24 06:08 Hold Purple Top SEE NOTE Estim Creat Clear Calc 97.5 Estimated GFR > 60 Random Vancomycin 15.9 Microbiology Microbiology Results: Microbiology 07/11/24 11:46 Blood Culture - Preliminary Blood - Venous Anaerobic gram positive cocci Assessment and Plan (1) Septic arthritis of foot: Status: Acute Plan 59-year-old male with a past medical history of paraplegia, history of UTIs, who was admitted from home with increased redness warmth and drainage to left lateral distal sole of foot. Will be admitted for wound management and IV ABT. Medication reconciliation pending Cellulitis Left foot and stage 3 pressure wound MRI with contrast showing, Fluid and enhancement of the septic arthropathy of the 5th metatarsophalangeal joint with the adjacent plantar and lateral soft tissue ulceration. myositis, multifocal cellulitis, and tenosynovitis. Fasciitis could also be considered given multiple cup compartment fluid. wound culture growing staph aureus Continue Zosyn and Vancomycin Seen by ID-recommend 3-4 weeks of IV ertapenem and vancomycin Surgery following>s/p debridement. recommend dry dressings, no further debridement required PICC line placement and SNF for long-term IV antibiotic still waiting on blood cx to finalize Mild hypernatremia resolved Paraplegia/History of UTI's/Neurogenic bladder Patient self caths twice daily Supportive care On Baclofen at home Right ischium stage 4 pressure injury. POA management as per wound care nurse - see full note for recommendations HLD statin Patient is a FULL CODE DVT Prophylaxis: Lovenox Plan is for tx to [place] rehab facility Quality Stroke Does the patient have a stroke diagnosis?: No VTE Prior VTE?: No VTE Risk Level:: Medical - moderate - high VTE Device Contraindication: Treatment Not Indicated VTE Drug Contraindication: N/A - Med Ordered
[2024-07-18] MEDS: vancomycin HCL 1,000 MG in 0.9 % Sodium Chloride 250 ML 270 MG IV ×2 (08:34→20:02)
[2024-07-18] MEDS: 0.9 % Sodium Chloride Flush 3 ML SYRINGE IVFLUSH ×3 (08:35→20:03)
[2024-07-18] MEDS: Baclofen 20 MG TABLET PO ×2 (08:35→20:03)
[2024-07-18] MEDS: Atorvastatin Calcium 80 MG TABLET PO (08:35)
[2024-07-18] MEDS: Docusate Sodium 100 MG CAPSULE PO (08:35)
--- NOTE | 2024-07-18 09:38 | MHC.CM.PN ---
EMR REVIEWED, PT W/OSTEO AWAITING BC'S, [facility] KIRAN CARTY [phone] UPDATED VIA PHONE, ANTIC W/LL DC TO STR ONCE BC'S CLEAR AND PICC LINE PLACED, CM WILL CONT TO FOLLOW DC NEEDS.
--- NOTE | 2024-07-18 11:21 | P.CDIM_ITS ---
PROVIDER RESPONSE TEXT: To clarify, the appropriate diagnosis supported by the clinical indicators: Pressure injury left foot (plantar) Stage 4 QUERY TEXT: PHYSICIAN'S DOCUMENTATION REQUEST Date of Query: 07/18/2024 07:40 AM EDT Patient Name: GIGI TRIPLETT Admit Date: 07/11/2024 Dear Silvia Camarena [employer] TEAM MEMBER, A review of the medical record indicates additional documentation may be needed. Please review below and update the documentation accordingly. Clinical Indicators: Progress note 07/15/24 - Cellulitis left foot and stage 3 pressure wound, Continue Zosyn and Vancomycin Will need PICC line placement and SNF. Plate Keeper progress note 07/17/24 - Ensure MAX BID to promote wound healing. Skin with Stage IV to right ischium and Stage IV to left plantar. Wound care assessment notes 07/17/24 - Left plantar Stage IV Dressing c/d/i changed prev shift. Based on the above, could you please provide further clarity regarding the stage of the noted ulcer/w ound/injury: Pressure Injury left foot (plantar) Stage 3 possible, suspected, probable, etc. Pressure injury left foot (plantar) Stage 4 Other (explain) Clinically unable to determine (explain) Thank you, Jazmine Umaña, CCS, CDIS Use of terms such as suspected, likely, concern for, or probable (associated with a specific diagnosi s that is being evaluated, monitored, or treated as if it exists) are acceptable and can be coded in the inpatient se tting, when documented at the time of discharge. Please use your independent medical judgment in providing your response. THIS QUERY IS PART OF THE PERMANENT MEDICAL RECORD
[2024-07-18 15:53] VITALS: BP 115/63; PULSE 73; RESP 16; TEMP 36.2; O2SAT 94
[2024-07-18] MEDS: Enoxaparin Sodium 40 MG/0.4 ML SYRINGE SUBCUT (15:54)
[2024-07-18 19:31] VITALS: BP 120/71; PULSE 80; RESP 18; TEMP 37.1; O2SAT 94
[2024-07-19 03:23] VITALS: BP 130/75; PULSE 76; RESP 16; TEMP 36.8; O2SAT 94
[2024-07-19] MEDS: Piperacillin Sodium/Tazobactam 3.375 GM in 0.9 % Sodium Chloride 50 ML IV ×4 (04:06→21:20)
[2024-07-19 06:47] LABS: Vancomycin Random 16.5 mcg/mL (15-20)
[2024-07-19 06:49] LABS: Creatinine Clr Calc Pharmacy 112.7; Estimated Glomerular Filt Rate > 60
--- NOTE | 2024-07-19 07:00 | HE.PHANOTE ---
RE: VANCO DOSING Trough came back as 16.5 mg/L and renal function is stable. Continue with dose 1000 mg q12h, next trough is scheduled for 07/20/24 @0600.
[2024-07-19 07:42] VITALS: BP 110/66; PULSE 73; RESP 18; TEMP 36.3; O2SAT 95
[2024-07-19] MEDS: 0.9 % Sodium Chloride Flush 3 ML SYRINGE IVFLUSH ×3 (09:18→22:01)
--- NOTE | 2024-07-19 09:19 | P.PNIM_ITS ---
Subjective Subjective Date of Service: 07/19/24 Interval History: Follow-up for foot wound/septic arthropathy No overnight events Does not have pain Constitutional Constitutional: Denies chills and Denies fever(s) Cardiovascular Cardiovascular: Denies chest pain and Denies palpitations Endocrine Endocrine: Denies palpitations Physical Exam 2 Vital Signs: Vital Signs: Last Vital Signs Temp 97.3 F 07/19/24 07:42 Pulse 73 07/19/24 07:42 Resp 18 07/19/24 07:42 BP 110/66 07/19/24 07:42 Pulse Ox 95 07/19/24 07:42 O2 Del Method Room Air 07/19/24 07:42 BMI result Body Mass Index 31.2 Appearing in no acute distress lung sounds are clear to auscultation heart regular rate rhythm, clear S1, S2 positive bowel sounds, abdomen is soft, nontender neuro patient is alert x3, no focal deficits Paraplegia Objective Data Active Medications Acetaminophen (Acetaminophen 325 Mg Tablet) 650 mg PO Q6H PRN PRN Reason: Pain, Mild 1-3,fever,headache Atorvastatin Calcium (Atorvastatin Calcium 80 Mg Tablet) 80 mg PO DAILY [facility] Last Admin: 07/18/24 08:35 Dose: 80 mg Documented By: TIN Baclofen (Baclofen 20 Mg Tablet) 20 mg PO BID [facility] Last Admin: 07/18/24 20:03 Dose: 20 mg Documented By: LORRAINE Bisacodyl (Bisacodyl 10 Mg Supp.Rect) 10 mg [place] BEDTIME PRN PRN Reason: Constipation Last Admin: 07/17/24 22:01 Dose: 10 mg Documented By: CHATA Calcium Carbonate (Calcium Carbonate 750 Mg Tab.Chew) 750 mg PO Q4H PRN PRN Reason: Heartburn Docusate Sodium (Docusate Sodium 100 Mg Capsule) 100 mg PO BID [facility] Last Admin: 07/18/24 20:04 Dose: Not Given Documented By: LORRAINE Non-Admin Reason: Patient Refused Enoxaparin Sodium (Enoxaparin Sodium 40 Mg/0.4 Ml Syringe) 40 mg SUBCUT Q24H [facility] Last Admin: 07/18/24 15:54 Dose: 40 mg Documented By: TIN Piperacillin Sod/Tazobactam (Sod 3.375 gm/ Sodium Chloride) 50 mls @ 100 mls/hr IV Q6H [facility] Last Infusion: 07/19/24 04:36 Dose: Infused Documented By: LORRAINE Vancomycin HCl 1,000 mg/ (Sodium Chloride) 270 mls @ 270 mls/hr IV Q12H [facility] Last Infusion: 07/18/24 21:02 Dose: Infused Documented By: LORRAINE Ibuprofen (Ibuprofen 600 Mg Tablet) 600 mg PO TID PRN PRN Reason: Pain (Scale Score 1-3) Magnesium Hydroxide (Milk Of Magnesia 30 Ml Oral.Susp) 30 ml PO DAILY PRN PRN Reason: Constipation Melatonin (Melatonin 3 Mg Tablet) 6 mg PO BEDTIME PRN PRN Reason: Insomnia Ondansetron HCl (Ondansetron Hcl 4 Mg/2 Ml Vial) 4 mg IVPUSH Q8H PRN PRN Reason: Nausea and Vomiting Pharmacy Consult (Consult Rx Vancomycin Dosing) 1 each MISCELLANE DAILY PRN PRN Reason: Consult order Polyethylene Glycol (Polyethylene Glycol 3350 17 Gm Powd.Pack) 17 gm PO DAILY PRN PRN Reason: Constipation Sodium Chloride (0.9 % Sodium Chloride Flush 3 Ml Syringe) 3 ml IVFLUSH QSHIFT [facility] Last Admin: 07/18/24 20:03 Dose: 3 ml Documented By: LORRAINE Labs 07/13/24 06:10 07/19/24 06:00 Labs: Laboratory Results - last 24 hr 07/19/24 06:00 Hold Purple Top SEE NOTE Estim Creat Clear Calc 112.7 Estimated GFR > 60 Random Vancomycin 16.5 Microbiology Microbiology Results: Microbiology 07/17/24 10:40 Blood Culture - Preliminary Blood - Venous No growth after 24 hours. 07/17/24 09:44 Blood Culture - Preliminary Blood - Venous No growth after 24 hours. 07/11/24 11:46 Blood Culture - Final Blood - Venous Anaerobic gram positive cocci Assessment and Plan (1) Septic arthritis of foot: Status: Acute Plan 59-year-old male with a past medical history of paraplegia, history of UTIs, who was admitted from home with increased redness warmth and drainage to left lateral distal sole of foot. Will be admitted for wound management and IV ABT. Medication reconciliation pending Cellulitis Left foot and stage 3 pressure wound wound culture growing staph aureus Continue Zosyn and Vancomycin Seen by ID-recommend 3-4 weeks of IV ertapenem and vancomycin Surgery following>s/p debridement. recommend dry dressings, no further debridement required PICC line placement and SNF for 4 weeks abx blood cx neg after 24 hrs Mild hypernatremia resolved Paraplegia/History of UTI's/Neurogenic bladder Patient self caths twice daily Supportive care On Baclofen at home Right ischium stage 4 pressure injury. POA management as per wound care nurse - see full note for recommendations HLD statin Patient is a FULL CODE DVT Prophylaxis: Lovenox Plan is for tx to [place] rehab facility Quality Stroke Does the patient have a stroke diagnosis?: No VTE Prior VTE?: No VTE Risk Level:: Medical - moderate - high VTE Device Contraindication: Treatment Not Indicated VTE Drug Contraindication: N/A - Med Ordered
[2024-07-19] MEDS: vancomycin HCL 1,000 MG in 0.9 % Sodium Chloride 250 ML 250 MG IV ×2 (09:20→20:05)
[2024-07-19] MEDS: Atorvastatin Calcium 80 MG TABLET PO (09:21)
[2024-07-19] MEDS: Baclofen 20 MG TABLET PO ×2 (09:21→20:05)
--- NOTE | 2024-07-19 13:14 | MHC.CLN ---
F/U DIET=REGULAR. ENSURE MAX BID TO PROMOTE WOUND HEALING. SUPPLEMENT PROVIDES 300 KCALS, 60 G PROTEIN. SKIN WITH STAGE IV TO RIGHT ISCHIUM AND STAGE IV TO LEFT PLANTAR. MOST RECENT INTAKE AT MEALS 100%. CONTINUE CURRENT DIET AND SUPPLEMENT. FOLLOW FOR PO INTAKE AND SKIN INTEGRITY.
--- NOTE | 2024-07-19 15:57 | P.PICC_ITS ---
PICC Line Insertion NPICC Diagnosis: Septic Arthritis Indication: 4wks ABT Pertinent Labs: Reviewed Technique: Following informed consent including risks, benefits and alternatives and using sterile technique including cap and mask, sterile gown, glove and drape, the right arm was prepped and draped in the usual sterile fashion of full barrier technique with CHG. Following completion of [place] Protocol the skin and soft tissues were anesthetized with 1% Lidocaine plain. Using ultrasound guidance, right basilic vein access was obtained. Over an 0.018 wire through peel-away sheath, a 4FR single lumen PASV PICC line was positioned. Catheter length is 45cm internal length, 0cm external length, for a total trimmed length of 45cm. The procedure was performed in [facility], later [facility]. Tip verification was performed by Celio Chaves with Sherlock 3CG. Tip located in SVC. Ultrasound was used to document vein patency and for needle entry. A formal ultrasound picture and cardiac rhythm strip was recorded. Vascular Graphotype Operator has released the line for use and it is currently dressed with a StatLock, Tegaderm, and CHG disc. Verification has been performed for blood return and line patency. Arm Circumference: 34cm Equipment: [employer] POWER[employer] SOLO with Sherlock 3CG tip Catheter Type: 4FR single lumen PASV PICC Catheter Lot #: [id number]
[2024-07-19 16:14] VITALS: BP 150/78; PULSE 72; RESP 18; TEMP 36.4; O2SAT 96
[2024-07-19] MEDS: Nystatin Powder 15 GM BOTTLE 1 APPL TOPICAL ×2 (16:35→20:14)
[2024-07-19] MEDS: Enoxaparin Sodium 40 MG/0.4 ML SYRINGE SUBCUT (16:35)
[2024-07-19 19:36] VITALS: BP 105/64; PULSE 75; RESP 18; TEMP 36.5; O2SAT 95
[2024-07-20] MEDS: Piperacillin Sodium/Tazobactam 3.375 GM in 0.9 % Sodium Chloride 50 ML IV ×2 (03:42→10:28)
[2024-07-20 05:02] VITALS: BP 124/70; PULSE 79; RESP 16; TEMP 36; O2SAT 96
[2024-07-20 06:19] LABS: Vancomycin Random 15.1 mcg/mL (15-20)
[2024-07-20 06:21] LABS: Creatinine Clr Calc Pharmacy 111.4; Estimated Glomerular Filt Rate > 60
[2024-07-20 08:01] VITALS: BP 129/78; PULSE 68; RESP 16; TEMP 36.9; O2SAT 95
[2024-07-20] MEDS: Baclofen 20 MG TABLET PO ×2 (08:32→20:33)
[2024-07-20] MEDS: Atorvastatin Calcium 80 MG TABLET PO (08:32)
[2024-07-20] MEDS: vancomycin HCL 1,000 MG in 0.9 % Sodium Chloride 250 ML 250 MG IV (08:34)
[2024-07-20] MEDS: 0.9 % Sodium Chloride Flush 3 ML SYRINGE IVFLUSH ×3 (08:48→20:44)
[2024-07-20] MEDS: Nystatin Powder 15 GM BOTTLE 1 APPL TOPICAL ×3 (08:49→20:44)
--- NOTE | 2024-07-20 11:21 | P.DS_ITS ---
DS: Providers Provider Date of Service: 07/21/24 Date of admission: 07/11/24 12:51 Date of discharge: 07/21/24 Primary care physician: Fernando Weber NP Consults: 07/11/24 15:44 Consult to Infectious Diseases Stat Consulting Provider: [facility] [place] [place] [facility] Reason for consultation: Cellulitis ? Osteo Has provider been notified: Yes 07/11/24 16:25 Consult to General Surgery Routine Consulting Provider: [facility] [place] [place] General Surgeons Reason for consultation: need of debridement of left foot Attending physician on discharge: Aditya Gallegos Discharging clinician: Trisha Tay DS: Diagnosis Discharge Diagnosis (1) Septic arthritis of foot: Status: Acute DS: Summary Hospital Course Hospital Course: From H&P on the day of admission 59 year old male with PMH of paraplegia for 24 years, history of UTI, Decubitus Ulcer stage 2, C7 spinal cord injury, Paralysis who presents with Ulcer of the distal sole of his left foot. Drainage was present surrounded by redness. Patient lives home independently and drives. Has [employer] three times a week and VNA twice weekly for wound care. Per patient over the weekend VNA noted wound on his left foot which had some redness. Patient reports he developed some redness and VNA recommended he present for evaluation. Patient reports that he had an appointment with his primary care doctor tomorrow and had planned to have his PCP evaluate. Baseline has mild sensation from C7 found. He has no motor from C7 down. He denies any pain. Denies fever or chills now but reports had some chills over the weekend. Denies any CP or SOB, denies any abdominal pain. Patient SC himself twice daily, reports that he voids throughout the day. White count was normal. Patient does have elevated CRP and ESR 87. Blood and wound cultures obtained. Received dose of Ampicillin. He will be admitted to hospital for Cellulitis and Rule out Osteomyelitis. Cellulitis Left foot and stage 3 pressure wound wound culture growing staph aureus blood cultures 1/2 growing gram positive cocci (failed to grow for identification testing. Beta lactamase not produce suggesting pen/amp susceptibility) Seen by ID-recommend 4 weeks of IV ertapenem and vancomycin (discussed and confirmed with ID) Surgery following>s/p debridement. recommend dry dressings, no further debridement required PICC line placement 07/19 RUE. will be discharged to SNF for 4 weeks of IV abx, first negative blood culture 07/17, end date 08/14 right wrist pain, redness; no trauma. h/o gout. started on colchicine. monitor for effect Mild hypernatremia resolved Paraplegia/History of UTI's/Neurogenic bladder Patient self caths twice daily Supportive care On Baclofen at home Right ischium stage 4 pressure injury. POA management as per wound care nurse -Right Ischium and Left Heel - Off Load Pressure with Q2 hr turns and use of pillows Cleanse and irrigate with NS, Pat dry.? Apply barrier to periwound, lightly pack with Durafiber AG, be sure to leave a wick to easy removal.? Cover with Foam dressing or gauze wrap.? Change every other day. Left Plantar - Off Load Pressure with Q2 hr turns and use of pillows Cleanse and irrigate with NS, Pat dry.? Apply barrier to periwound, lightly pack with saline wet gauze, cover with dry gauze, ABD pad and gauze wrap.? Change Daily May follow with Yemi wrap. Time Attestation Discharge Coordination Time (in mins): 35 Quality: Safe Use of Opioids Does Pt have an Active Cancer Diagnosis on the Problem List?: No Quality: Stroke Does the patient have a stroke diagnosis?: No Physical Exam Vital Signs: Vital Signs: Last Vital Signs Temp 98.5 F 07/20/24 08:01 Pulse 68 07/20/24 08:01 Resp 16 07/20/24 08:01 BP 129/78 07/20/24 08:01 Pulse Ox 95 07/20/24 08:01 O2 Del Method Room Air 07/20/24 08:01 BMI result Body Mass Index 31.2 Const: General: cooperative, comfortable, alert and awake Nutritional Appearance: overweight Orientation/consciousness: patient oriented x3 Resp: Effort & Inspection: no respiratory distress and no use of accessory muscles Auscultation: clear to auscultation bilaterally GI: Inspection: No distended Palpation (GI): Soft to palpation Neuro: General: patient oriented x3 Extrem: Other: left foot clean/dry dressing b/l upper extremity contractures right wrist with mild erythema, tenderness. no significant swelling DS: Data Data Completed and Pending Labs on day of discharge: Laboratory Results - last 24 hr 07/20/24 05:56 Creatinine 0.84 Estim Creat Clear Calc 111.4 Estimated GFR > 60 Random Vancomycin 15.1 Preliminary micro results at discharge 07/17/24 10:40 Blood Culture - Preliminary Blood - Venous No growth after 48 hours. 07/17/24 09:44 Blood Culture - Preliminary Blood - Venous No growth after 48 hours. Discharge Plan Discharge Anticipated Discharge Date/Time: 07/21/24 09:47 Patient Disposition: Xfer [facility] Discharge Diagnosis: bacteremia cellulitis/septic arthropathy left foot Referrals: Fernando Weber, [employer] [Primary Care Provider] - 1 Week Discharge Medications: New colchicine [Colcrys] 0.6 mg Tablet 0.6 mg PO DAILY 7 Days Qty: 7 0RF docusate sodium 100 mg Capsule 100 mg PO BID Qty: 30 0RF nystatin [Nyamyc] 100,000 unit/gram Powder 1 appl topical TID Qty: 15 0RF Protocol: Apply to: Apply to: groin Continued simvastatin 40 mg Tablet 20 mg PO DAILY ibuprofen 600 mg Tablet 600 mg PO TID PRN (Reason: Pain (Scale Score 1-3)) baclofen 20 mg PO BID Discharge Orders: Discharge Order (Routine); Ordered 07/21/24 Ordered By: Trisha Tay Activity on Discharge: As tolerated Stand Alone Forms: Patient Portal Discharge page, Work/School Release Print Language: Italian Care Plan Goals: See below Health Concerns: Left foot cellulitis/septic arthropathy Bacteremia Paraplegia Neurogenic bladder Plan of Treatment: 4 weeks of IV antibiotics - vancomycin 1gm q12h and ertapenem 1 gm q24h follow cbc, bmp and vanco trough weekly Continue wound care Outpatient follow-up with General surgery for left foot possible right wrist gout - started on colchicine Assessment: See discharge summary
[2024-07-20] MEDS: Ertapenem Sodium 1 GM VIAL IVPUSH (12:14)
--- NOTE | 2024-07-20 13:56 | MHC.CM.PN ---
Addendum entered by Criselda Rose RN 07/20/24 14:31: CM RECEIVED CALL FROM RENZO AT [facility] AND REPORTED PT'S TRANSPORT CAN BE BOOKED BY THIS CM D/T TO PT TRANSFERRING TO ANOTHER [facility]. Original Note: EMR REVIEWED, PT MEDCALLY CLEARED FOR DC TO [facility], DC DRAFT W/FINAL ABX AND PICC LINE FAXED TO MACHELLE [phone], CM CONTACTED MACHELLE AT [phone], CM CONTACTED JAZMIN AT [facility] [phone] TO PREBOOK TRANSPORT FOR TOMORROW 07/20 THEY WOULD LIKE PT TO ARRIVE EARLY POSSIBLE D/T MD'S LEAVING AT 3PM. JAZMIN REQUESTED REF BE PLACED TO HER FOR APPROVAL, REF FAXED TO [phone]. KIRAN RECEIVED A CALL AT 1:41PM FROM RENZO AT [place] ASKING FOR UPDATE SHE HAS NOT HEARD FROM [facility] SINCE WEDNESDAY, RENZO UPDATED AND AWARE CM HAD FAXED DOCUMENTS RECENTLY. PER RENZO'S REQUEST CM DID REQUEST MACHELLE FROM [facility] GIVE HER A CALL, MACHELLE WAS GIVEN RENZO'S CONTACT INFO. [facility] REQUESTING HOSPITALIST CHECK IN W/DR. ROQUE [phone] TOMORROW MORNING PRIOR TO DC, NURSE TO NURSE #[phone].
[2024-07-20 14:00] VITALS: BP 103/57; PULSE 79; RESP 16; TEMP 36.9; O2SAT 95
--- NOTE | 2024-07-20 15:54 | HO.PM.IMPN ---
Subjective Subjective Date of Service: 07/20/24 Interval History: seen and examined this morning follow up for foot wound/septic arthropathy no overnight events initially planned to go to [place] today for STR Review of Systems Review of Systems: Yes all other systems are reviewed and are negative Constitutional Constitutional: Denies chills and Denies fever(s) Cardiovascular Cardiovascular: Denies chest pain, Denies palpitations and Denies dyspnea Respiratory Respiratory: Denies cough and Denies dyspnea Endocrine Endocrine: Denies palpitations Physical Exam Vital Signs: Vital Signs: Last Vital Signs Temp 98.4 F 07/20/24 14:00 Pulse 79 07/20/24 14:00 Resp 16 07/20/24 14:00 BP 103/57 L 07/20/24 14:00 Pulse Ox 95 07/20/24 14:00 O2 Del Method Room Air 07/20/24 14:00 BMI result Body Mass Index 31.2 Const: General: cooperative, comfortable, no acute distress, alert and awake Nutritional Appearance: overweight Orientation/consciousness: patient oriented x3 Resp: Effort & Inspection: no respiratory distress and no use of accessory muscles Auscultation: clear to auscultation bilaterally GI: Inspection: No distended Palpation (GI): Soft to palpation Neuro: General: patient oriented x3 Extrem: Other: left foot clean/dry dressing b/l upper extremity contractures Objective Data Active Medications Acetaminophen (Acetaminophen 325 Mg Tablet) 650 mg PO Q6H PRN PRN Reason: Pain, Mild 1-3,fever,headache Atorvastatin Calcium (Atorvastatin Calcium 80 Mg Tablet) 80 mg PO DAILY [facility] Last Admin: 07/20/24 08:32 Dose: 80 mg Documented By: PERCY Baclofen (Baclofen 20 Mg Tablet) 20 mg PO BID [facility] Last Admin: 07/20/24 08:32 Dose: 20 mg Documented By: PERCY Bisacodyl (Bisacodyl 10 Mg Supp.Rect) 10 mg [place] BEDTIME PRN PRN Reason: Constipation Last Admin: 07/17/24 22:01 Dose: 10 mg Documented By: CHATA Calcium Carbonate (Calcium Carbonate 750 Mg Tab.Chew) 750 mg PO Q4H PRN PRN Reason: Heartburn Docusate Sodium (Docusate Sodium 100 Mg Capsule) 100 mg PO BID [facility] Last Admin: 07/20/24 08:49 Dose: Not Given Documented By: PERCY Non-Admin Reason: Patient Refused Enoxaparin Sodium (Enoxaparin Sodium 40 Mg/0.4 Ml Syringe) 40 mg SUBCUT Q24H [facility] Last Admin: 07/19/24 16:35 Dose: 40 mg Documented By: CAPRICE Vancomycin HCl 1,000 mg/ (Sodium Chloride) 270 mls @ 270 mls/hr IV Q12H [facility] Last Infusion: 07/20/24 09:56 Dose: Infused Documented By: PERCY Ibuprofen (Ibuprofen 600 Mg Tablet) 600 mg PO TID PRN PRN Reason: Pain (Scale Score 1-3) Magnesium Hydroxide (Milk Of Magnesia 30 Ml Oral.Susp) 30 ml PO DAILY PRN PRN Reason: Constipation Melatonin (Melatonin 3 Mg Tablet) 6 mg PO BEDTIME PRN PRN Reason: Insomnia Meropenem (Meropenem 1 Gm Vial) 1 gm IVPUSH Q8H [facility] Nystatin (Nystatin Powder 15 Gm Bottle) 1 appl TOPICAL TID [facility]; Protocol Last Admin: 07/20/24 08:49 Dose: 1 appl Documented By: PERCY Ondansetron HCl (Ondansetron Hcl 4 Mg/2 Ml Vial) 4 mg IVPUSH Q8H PRN PRN Reason: Nausea and Vomiting Pharmacy Consult (Consult Rx Vancomycin Dosing) 1 each MISCELLANE DAILY PRN PRN Reason: Consult order Polyethylene Glycol (Polyethylene Glycol 3350 17 Gm Powd.Pack) 17 gm PO DAILY PRN PRN Reason: Constipation Sodium Chloride (0.9 % Sodium Chloride Flush 3 Ml Syringe) 3 ml IVFLUSH QSHIFT [facility] Last Admin: 07/20/24 08:48 Dose: 3 ml Documented By: PERCY Labs 07/13/24 06:10 07/20/24 05:56 Labs: Laboratory Results - last 24 hr 07/20/24 05:56 Estim Creat Clear Calc 111.4 Estimated GFR > 60 Random Vancomycin 15.1 Microbiology Microbiology Results: Microbiology 07/17/24 10:40 Blood Culture - Preliminary Blood - Venous No growth after 48 hours. 07/17/24 09:44 Blood Culture - Preliminary Blood - Venous No growth after 48 hours. Assessment and Plan (1) Septic arthritis of foot: Status: Acute (2) Pressure ulcer of left foot, stage 3: Status: Acute Plan 59-year-old male with a past medical history of paraplegia, history of UTIs, who was admitted from home with increased redness warmth and drainage to left lateral distal sole of foot. Will be admitted for wound management and IV ABT. Medication reconciliation pending Cellulitis Left foot and stage 3 pressure wound wound culture growing MSSA blood cultures 1/2 growing gram positive cocci (failed to grow for identification testing. Beta lactamase not produce suggesting pen/amp susceptibility) Seen by ID-recommend 4 weeks of IV ertapenem and vancomycin (discussed and confirmed with ID) Surgery following>s/p debridement. recommend dry dressings, no further debridement required PICC line placement 07/19 RUE. will be discharged to SNF for 4 weeks of IV abx, first negative blood culture 07/17, end date 08/14 Mild hypernatremia resolved Paraplegia/History of UTI's/Neurogenic bladder Patient self caths twice daily Supportive care On Baclofen at home Right ischium stage 4 pressure injury. POA management as per wound care nurse - see full note for recommendations HLD statin Patient is a FULL CODE DVT Prophylaxis: Lovenox Plan is for tx to [place] rehab facility Quality Stroke Does the patient have a stroke diagnosis?: No VTE Prior VTE?: No VTE Risk Level:: Medical - moderate - high VTE Device Contraindication: Treatment Not Indicated VTE Drug Contraindication: N/A - Med Ordered
[2024-07-20] MEDS: Enoxaparin Sodium 40 MG/0.4 ML SYRINGE SUBCUT (17:27)
[2024-07-20] MEDS: Meropenem 1 GM VIAL IVPUSH (20:32)
[2024-07-20] MEDS: Acetaminophen 325 MG TABLET 650 MG PO (20:33)
[2024-07-20 20:34] VITALS: BP 106/59; PULSE 90; RESP 17; TEMP 37.6; O2SAT 97
[2024-07-20] MEDS: vancomycin HCL 1,000 MG in 0.9 % Sodium Chloride 250 ML 270 MG IV (20:34)
[2024-07-21] MEDS: Ibuprofen 600 MG TABLET PO (00:06)
[2024-07-21 04:35] VITALS: BP 110/56; PULSE 94; RESP 18; TEMP 37.2; O2SAT 94
[2024-07-21] MEDS: bisacodyL 10 MG SUPP.RECT PR (04:44)
[2024-07-21] MEDS: Meropenem 1 GM VIAL IVPUSH (04:44)
[2024-07-21 07:00] LABS: Vancomycin Random 13.1 mcg/mL (15-20)
[2024-07-21 07:01] LABS: Creatinine Clr Calc Pharmacy 110.1; Estimated Glomerular Filt Rate > 60
--- NOTE | 2024-07-21 07:18 | PC.NURSE ---
REPORTED TO dr Mario rash on both sides of body and upper legs ; redness , raised and warm to touch . Vanco dose will be adjusted per dr Richardson
[2024-07-21 08:09] VITALS: BP 149/72; PULSE 81; RESP 16; TEMP 37.1; O2SAT 97
[2024-07-21] MEDS: Baclofen 20 MG TABLET PO (08:52)
[2024-07-21] MEDS: Atorvastatin Calcium 80 MG TABLET PO (08:52)
[2024-07-21] MEDS: Nystatin Powder 15 GM BOTTLE 1 APPL TOPICAL (08:52)
--- NOTE | 2024-07-21 09:51 | PC.NURSE ---
PICC Line Dressing changed at this time, sterile technique, pt tolerated well.
[2024-07-21] MEDS: vancomycin HCL 1,000 MG in 0.9 % Sodium Chloride 250 ML 270 MG IV (09:52)
[2024-07-21] MEDS: 0.9 % Sodium Chloride Flush 3 ML SYRINGE IVFLUSH (09:53)
[2024-07-21] MEDS: Colchicine 0.6 MG TABLET 1.2 MG PO (10:29)
--- NOTE | 2024-07-21 10:45 | MHC.CM.PN ---
PT WILL DC TO [facility] TODAY AT 110 HOURS VIA [employer] BLS CM SPOKE TO ISIDRO AT [place] [phone], CONFIRMED THEY ARE READY TO ACCEPT PHONE NUMBER PROVIDED TO RN FOR REPORT
[2024-07-21 10:51] VITALS: BP 130/76; PULSE 74; RESP 18; TEMP 37.1; O2SAT 95
[2024-07-21] MEDS: Colchicine 0.6 MG TABLET PO (10:55)
--- NOTE | 2024-07-21 11:12 | PC.NURSE ---
Noted PICC line leaking, IR assessed site and line and all is intact. Pt on blood thinners. Picc line dressing changed with out incident. Pt tolerated well.
== END 2024-07-21 11:53 | disposition skilled nursing facility (03) | DRG 463 ==
LOC: HO.ED 12:57 → HO.EDOVER 14:01 → HO.S3 19:27
PROVIDERS: Nurse Practitioner Family; Admitting Provider Student in an Organized Health Care Education/Training Program; Emergency Provider Emergency Medicine Emergency Medical Services; PCP Nurse Practitioner Family; Visit Provider Physician Assistant Medical
DX: M00.9 Pyogenic arthritis, unspecified (principal); L89.314 Pressure ulcer of right buttock, stage 4; L89.894 Pressure ulcer of other site, stage 4; L03.116 Cellulitis of left lower limb; G82.20 Paraplegia, unspecified; E87.0 Hyperosmolality and hypernatremia; I96 Gangrene, not elsewhere classified; N31.9 Neuromuscular dysfunction of bladder, unspecified; B95.61 Methicillin susceptible Staphylococcus aureus infection as the cause of diseases classified elsewhere; E78.5 Hyperlipidemia, unspecified; T14.8XXS Other injury of unspecified body region, sequela; V29.99XS Rider (driver) (passenger) of other motorcycle injured in unspecified traffic accident, sequela; S14.107S Unspecified injury at C7 level of cervical spinal cord, sequela; Z79.899 Other long term (current) drug therapy; M10.9 Gout, unspecified
CPT/HCPCS: 36415; 36573; 73620; 73720; 80048; 80053; 80202; 82565; 83605; 85025; 85652; 86140; 87040; 87070; 87077; 87186; 87205; 99285; A9585; C1751; C1894; J0295; J1335; J1650; J2185; J2543; J3370

== ENCOUNTER → 2024-07-11 10:55 | Outpatient (BNV) | payer OTHER, SELFPAY | PROVIDERS: Emergency Provider Emergency Medicine Emergency Medical Services; PCP Nurse Practitioner Family; Visit Provider Radiology Diagnostic Radiology | DX: M19.072 Primary osteoarthritis, left ankle and foot (principal); M60 Myositis; L03.116 Cellulitis of left lower limb; M65.972 Unspecified synovitis and tenosynovitis, left ankle and foot; M85.872 Other specified disorders of bone density and structure, left ankle and foot | CPT/HCPCS: 73620; 73720 ==

== ENCOUNTER → 2024-07-11 12:51 | Outpatient (BNV) | payer OTHER, SELFPAY | PROVIDERS: Admitting Provider Student in an Organized Health Care Education/Training Program; Emergency Provider Emergency Medicine Emergency Medical Services; PCP Nurse Practitioner Family; Visit Provider Surgery | DX: L03.116 Cellulitis of left lower limb (principal) | CPT/HCPCS: 11042; 99222; 99231 ==

== ENCOUNTER → 2024-07-11 12:51 | Outpatient (BNV) | payer OTHER, SELFPAY | PROVIDERS: Admitting Provider Student in an Organized Health Care Education/Training Program; Emergency Provider Emergency Medicine Emergency Medical Services; PCP Nurse Practitioner Family; Visit Provider Internal Medicine | DX: L89.893 Pressure ulcer of other site, stage 3 (principal); M00.9 Pyogenic arthritis, unspecified | CPT/HCPCS: 99222 ==

== ENCOUNTER → 2024-07-11 12:51 | Outpatient (BNV) | payer OTHER, SELFPAY | PROVIDERS: Admitting Provider Student in an Organized Health Care Education/Training Program; Emergency Provider Emergency Medicine Emergency Medical Services; PCP Nurse Practitioner Family; Visit Provider Student in an Organized Health Care Education/Training Program | DX: M00.9 Pyogenic arthritis, unspecified (principal) | CPT/HCPCS: 99222; 99232 ==